=== PATIENT | female | born 1970 | race Asian ===

== ENCOUNTER → 2018-12-23 10:25 | Outpatient (CLI) | payer BC, SELFPAY ==
--- NOTE | 2018-12-23 | DI.MG.S_ITS ---
BILATERAL DIGITAL SCREENING MAMMOGRAM 3D/2D WITH CAD: 12/23/2018 CLINICAL: Routine screening. Comparison is made to exams dated: 05/06/2017 mammogram, 05/04/2016 mammogram, 04/07/2015 mammogram, and 04/01/2015 mammogram - [facility]. The tissue of both breasts is extremely dense, which lowers the sensitivity of mammography. Current study was also evaluated with a Computer Aided Detection (CAD) system. There are benign calcifications in both breasts. No significant masses, calcifications, or other findings are seen in either breast. There has been no significant interval change. IMPRESSION: There is no mammographic evidence of malignancy. A 1 year screening mammogram is recommended. This exam was interpreted at Station ID: [id number]. NOTE: For mammograms, a report in lay terms will be sent to the patient. Approximately 15% of breast malignancies will not be visualized mammographically. In the management of a palpable breast mass, a negative mammogram must not discourage biopsy of a clinically suspicious lesion. Electronically Signed By: Chapito south/denise:12/23/2018 11:31:39 letter sent: Normal Exam ACR BI-RADS Category 2: Benign Finding(s) 3342F
== END ==
PROVIDERS: Family Provider Family Medicine; PCP Family Medicine; Visit Provider Family Medicine
DX: Z12.31 Encounter for screening mammogram for malignant neoplasm of breast (principal)
CPT/HCPCS: 77063; 77067

== ENCOUNTER → 2019-05-11 10:44 | Outpatient (CLI) | payer BC, SELFPAY ==
--- NOTE | 2019-05-11 | DI.RAD.S_ITS ---
PROCEDURE: XR LUMBAR SPINE 2-3V INDICATIONS: Low back pain TECHNIQUE: 2 views of the lumbar spine were acquired. COMPARISON: [facility], , XR L-SPINE 5V, 08/24/2004, 9:02. FINDINGS: Bones: 5 orb-[id number] vertebrae are present. There is abnormal bony alignment with grade 2 anterolisthesis of L5 on S1 associated with bilateral L5 pars interarticularis defects. No vertebral body compression fractures. No suspicious bony lesions. Soft tissues: Overlying bowel gas pattern is normal. No suspicious soft tissue calcifications. IMPRESSION: Bilateral pars interarticularis defects are present at L5 allowing development of grade 2 anterolisthesis of L5 on S1, not previously present on the comparison study from August 2004. Spinal and foraminal stenosis at this level would be expected, degenerative disc height reduction is moderate in severity at this level in addition to the expected degree of facet osteoarthritis secondary to the pars defects. Dictated by: Douglas Rader M.D. on 05/11/2019 at 11:27 Approved by: Douglas Rader M.D. on 05/11/2019 at 11:29
== END ==
PROVIDERS: Family Provider Family Medicine; PCP Family Medicine; Visit Provider Family Medicine
DX: M54.5 Low back pain (principal); M43.17 Spondylolisthesis, lumbosacral region
CPT/HCPCS: 72100

== ENCOUNTER → 2019-05-26 17:40 | Outpatient (CLI) | payer BC, SELFPAY ==
--- NOTE | 2019-05-26 | DI.MRI.S_ITS ---
PROCEDURE: MR LUMBAR SPINE WO CON INDICATIONS: Spine pain TECHNIQUE: Noncontrast sagittal T1 spin echo and T2 fast echo, sagittal STIR, axial T1 and T2 fast spin echo through the lumbar spine. In cases with scoliosis, additional coronal T2 fast spin echo may be performed. COMPARISON: [facility], CR, XR LUMBAR SPINE 2-3V, 05/11/2019, 10:59. FINDINGS: Image quality: Excellent. Alignment and Curvature: 5 lumbar type vertebral bodies are present by plain film. There is mild grade 1 retrolisthesis of L2 on L3 and L3 on L4. Mild grade 1 anterolisthesis of L5 on S1. Bone Marrow: Marrow is of normal overall signal. No acute vertebral body compression fractures. Bilateral L5-S1 pars interarticularis defects. Mild reactive signal within the endplates adjacent to the L2-L3 and L5-S1 intervertebral discs. Spinal Cord: Conus medullaris terminates at the mid L2 level. Visualized cord demonstrates normal signal and size. Paraspinous Soft Tissues: No paravertebral masses. L1-L2: Mild facet hypertrophy bilaterally. No significant canal, nor foraminal stenosis. L2-L3: Mild disc height loss and desiccation. Mild diffuse disc bulge with superimposed small central protrusion. Mild facet hypertrophy bilaterally. Mild canal stenosis. No foraminal stenosis. L3-L4: Mild disc height loss and desiccation. Mild diffuse disc bulge. Mild facet hypertrophy bilaterally. Mild canal stenosis. Mild bilateral foraminal stenosis. L4-L5: Mild disc height loss and desiccation. Mild diffuse disc bulge. Mild bilateral facet hypertrophy. Mild canal stenosis. Mild bilateral foraminal stenosis. L5-S1: Moderate disc height loss and desiccation. Moderate diffuse disc bulge. Mild bilateral facet hypertrophy. No canal stenosis. Severe bilateral foraminal stenosis with bilateral L5 nerve root compression. IMPRESSION: 1. Grade I isthmic spondylolisthesis at L5-S1, associated with disc and facet disease. 2. Severe bilateral L5-S1 foraminal stenosis associated with bilateral L5 nerve root compression. Recommend correlation with clinical symptoms to ascertain relevance of this finding. Dictated by: Reddy Zimmerman M.D. on 05/27/2019 at 9:05 Approved by: Reddy Zimmerman M.D. on 05/27/2019 at 9:09
== END ==
PROVIDERS: PCP Family Medicine; Visit Provider Family Medicine
DX: M43.17 Spondylolisthesis, lumbosacral region (principal); M51.17 Intervertebral disc disorders with radiculopathy, lumbosacral region; M51.16 Intervertebral disc disorders with radiculopathy, lumbar region; M48.07 Spinal stenosis, lumbosacral region; M48.061 Spinal stenosis, lumbar region without neurogenic claudication
CPT/HCPCS: 72148

== ENCOUNTER → 2019-06-11 13:57 | Outpatient (CLI) | payer BC, SELFPAY | PROVIDERS: PCP Family Medicine; Visit Provider Family Medicine | DX: M54.16 Radiculopathy, lumbar region (principal) | CPT/HCPCS: 95885; 95886; 95909 ==

== ENCOUNTER 2019-07-23 09:00 | Outpatient (RCR) | payer BC, SELFPAY ==
--- NOTE | 2019-06-05 18:19 | PT.OIE ---
Current Diagnoses Sacroiliitis, not elsewhere classified (06/05/19) Spinal instabilities, sacral and sacrococcygeal region (06/05/19) Radiculopathy, lumbar region (06/05/19) Past Medical History (Last Updated 06/05/19 @ 18:15 by Zoya Mckinley, PT) Back pain (Acute) Depression (Acute) Provider Visit Care Team Role Provider Type Laura Moran MD Attending Provider Physician Primary Care Provider Specialty: Family Practice Address: [address] [place] [address], [facility] Email: Physical Therapy Initial Evaluation PT-OP-A Visit Information Start: 06/05/19 11:21 Freq: Status: Active Protocol: Document 06/05/19 11:55 LRN (Rec: 06/05/19 18:09 LRN [id number]) Out-Patient Physical Therapy Visit Information Visit Information Visit Type Initial Evaluation Visit Start Time 11:41 Visit Stop Time 12:41 Total Visit Minutes 60 Visit Number 1 Evaluation Information Evaluation Date 06/05/19 Precautions Precautions Depression Assessed with L SIJ instability PT-OP-B Current Condition Start: 06/05/19 11:21 Freq: Status: Active Protocol: Document 06/05/19 11:55 LRN (Rec: 06/05/19 18:09 LRN [id number]) Current Condition History of Current Condition Onset Date 2002 Current Complaints Intermittent severe L low back pain at SIJ level History of Current Condition Pt reports in 2002 she was helping her spouse move a 100# boat battery when he suddenly dropped it, leaving her holding it with her R hand and standing primarily on her R LE. She felt immediate pain in the L low back and has had back pain since. At one time she was taking a lot of IBP and Tylenol for her pain and found some relief with IBP. She has since been placed on a therapeutic dose of IBP but the pt is worried about taking too many medications. She was told at one time while on a trip to [facility], by a [facility] doctor, that she needed surgery but was unable to afford it. She thinks the reason was because she had no disc space at L5-S1. She currently has intermittent L low back pain that she has learned to self manipulate, but is never sure when it will click out of place. Prior Treatments and Tests MRI & X-rays taken in [facility] MRI & X-rays @ [facility] 05/26/19 Future Testing and Treatments Planned Possible cortisone injection Treatment Goals Patient/Caregiver Goals Pt goal is to become painfree and learn how to manage her condition to prevent onset. Prior Functional Status Baseline Function- ADL's Independent Baseline Function- Mobility Independent Current Functional Impairments (Reported) Functional Limitations- ADL's Able to sit or lie on a soft surface for a very short period of time. Slow and cautious with movement. Personal Factors Other Personal Factors That May Effect Chronicity of condition Therapy/Recovery Depression PT-OP-C Subjective Start: 06/05/19 11:21 Freq: Status: Active Protocol: Document 06/05/19 11:55 LRN (Rec: 06/05/19 18:09 LRN [id number]) OP-PT Pain Assessment Pain Assessment Grid Paper Pain Assessment Grid Completed Yes Location Left Lower Back Pain Location Details L low back at Sacral level Intensity 4 Scale Used Numeric (1 - 10) Description- Other Clicking with sudden relief Frequency Intermittent Pain Aggravating Factors Changing Position Activity Sitting Bending Lifting Other Pain Alleviating Factors Self manipulation, IBP Patient Stated Pain Goal Painfree Home Pain Medication Use Pain Medications Used Natural remedies Pain Behaviors Pain Behaviors Restlessness PT-OP-F Manual Assessment Start: 06/05/19 11:21 Freq: Status: Active Protocol: Document 06/05/19 11:55 LRN (Rec: 06/05/19 18:09 LRN [id number]) Manual Assessments Soft Tissue Assessment Soft Tissue Mobility Assessment Muscle guarding in lumbar paraspinal region, upper gluteals. Joint Mobility Assessment Joint Mobility Assessment Deferred due to patient apprehension of creating pain. PT-OP-G Mobility & Gait Start: 06/05/19 11:21 Freq: Status: Active Protocol: Document 06/05/19 11:55 LRN (Rec: 06/05/19 18:09 LRN [id number]) OP Mobility Evaluation Bed Mobility Supine to and from Sit Pt transfers supine to sit by doing a sit up. PT-OP-H Neuro Start: 06/05/19 11:21 Freq: Status: Active Protocol: Document 06/05/19 11:55 LRN (Rec: 06/05/19 18:09 LRN [id number]) Sensation Evaluation Gross Sensation Gross Sensation WNL Deep Tendon Reflex & Clonus Assessment Deep Tendon Reflex Bilateral Achilles Deep Tendon Reflex 1+ Diminished Bilateral Patellar Deep Tendon Reflex 4+ Brisk PT-OP-J Posture/Palpation/Skin Start: 06/05/19 11:21 Freq: Status: Active Protocol: Document 06/05/19 11:55 LRN (Rec: 06/05/19 18:09 LRN [id number]) Posture Evaluation Position Standing Head/C-Spine Posture Neutral Position C-Spine Flattened T-Spine Posture Flattened Flexible Scoliosis on (L) L-Spine Posture Increased Lordosis Flexible Scoliosis on (L) Shoulder Posture (L) Elevated Scapula Posture (L) Elevated Pelvis Posture Anteriorly Tilted Weight Distribution Balanced Knee Posture (L) Genu Recurvatum (R) Genu Recurvatum Ankle/Foot Posture (R) Calcaneal Eversion Palpation Assessment Location Lumbar Palpation Location Lumbar region Palpation Findings Muscle Guarding Palpation Details Lumbar spine is in L rotation. Sacrum Palpation Location Sacrum in prone Palpation Findings Tenderness Palpation Details Sacrum is rotated left and flexed on the right, extended on the left. PT-OP-K Range of Motion Start: 06/05/19 11:21 Freq: Status: Active Protocol: Document 06/05/19 11:55 LRN (Rec: 06/05/19 18:09 LRN [id number]) Lumbar Spine Range of Motion Lumbar Spine Active Degrees Testing Position Standing Flexion 95 Extension 5 Rotation Left 20 Rotation Right 30 Lateral Flexion Left 7 Lateral Flexion Right 10 ROM Limitations Soft Tissue Tightness Bony Restriction Comments Fear limiting with extension. Pt lacks lumbar vertebral movement for flexion, spine is straight with forward bending , straight with sidebending, straight with L rotation. Hip Goniometric Range of Motion Hip Right Passive Testing Position Supine Straight Leg Raise 110 Internal Rotation 45 External Rotation 55 Left Passive Testing Position Supine Straight Leg Raise 75 Internal Rotation 45 External Rotation 50 PT-OP-L Special Tests Start: 06/05/19 11:21 Freq: Status: Active Protocol: Document 06/05/19 11:55 LRN (Rec: 06/05/19 18:09 LRN [id number]) Special Tests Lumbar Spine Special Tests Straight Leg Raise Test Results positive on the left for soft tissue tightness Hip Special Tests Stinchfield Resisted Hip Flexion Test Results negative bilaterally Comments Testing of R side elicited pain in L LB. Scour Test Test Results negative bilaterally Log Roll Test Test Results negative bilaterally BREE Test Results negative bilaterally Comments L side: hip joint pain anteriorly R side: no discomfort. PT-OP-M Strength Start: 06/05/19 11:21 Freq: Status: Active Protocol: Document 06/05/19 11:55 LRN (Rec: 06/05/19 18:09 LRN [id number]) Trunk Strength Trunk Manual Muscle Testing Testing Position Supine Comments Fair to Poor trunk stabilization with resistance given to LE's Hip Strength Hip Manual Muscle Testing Right Internal Rotation 4+ Good+ Comments Strength is generally 5/5 except those mentioned above. Left Adduction 4 Good Internal Rotation 4 Good Comments Strength is generally 5/5 except those mentioned above. Knee Strength Knee Manual Muscle Testing Right Flexion (S2) 4+ Good+ Extension (L3) 5 Normal Comments Hamstring (S2) Left Reason Not Measured WFL Ankle/Foot Strength Ankle and Foot Manual Muscle Testing Right Reason Not Measured WFL Left Reason Not Measured WFL Toe Strength Toe Manual Muscle Testing Right Great Toe Extension 5 Normal Left Great Toe Extension 5 Normal PT-OP-Q Treatments Start: 06/05/19 11:21 Freq: Status: Active Protocol: Document 06/05/19 11:55 LRN (Rec: 06/05/19 18:09 LRN [id number]) Therapeutic Exercises Supine Exercises TA tightening Supine Exercise Name TA tightening with fingers at ASIS for awareness training Side bilateral Reps/Minutes 3 Sidelying Exercises TA tightening Sidelying Exercise Name TA tightening for awareness training Side bilateral Reps/Minutes 4 Other Exercises 4-Point: TA tightening Other Exercise Name TA tightening and spinal stabilization Reps/Minutes 4 Self-Care/Home Management Treatment Education Patient Education Body Mechanics Activities Self-Care/Home Management Activities Pt educated in proper movement for scooting forward on plinth, postioning in sit prior to standing, standing; TA holding during movement. PT-OP-T Assessment and Plan Start: 06/05/19 11:21 Freq: Status: Active Protocol: Document 06/05/19 11:55 LRN (Rec: 06/05/19 18:09 LRN [id number]) Physical Therapy Assessment Rehab Potential Rehabilitation Potential Good Evaluation Complexity Number of Personal Factors/Comorbidities 1-2 Number of Body Systems Impaired 4 or More Clinical Presentation at Evaluation Evolving Impairments Impairments Activity Tolerance Pain Posture ROM Soft Tissue Mobility Strength Other Impairments Positional Tolerance Other Concerns Age Related Concerns Effect on social and home life Barriers to Rehabilitation Chronicity of condition Depression Goals Four Impairment Low back pain rated 4/10 Short Term Goal (STG) Pt will experience pain no greater than 2/10 with walking or standing for a 2 or more week interval. Sheet Tailer Goal (LTG) With activity pt will have L low back pain no greater than 1/10. LTG Duration 08/28/19 Three Impairment Pt unable to maintain pelvic stability at the L SIJ with transfers. Short Term Goal (STG) Pt will be able to stabilize the L SIJ with use of assistive device as necessary. STG Duration 06/26/19 Group Home Goal (LTG) Pt will be able to move from supine <-> sit and sit <-> stand 75% of the time without clicking and a feeling of instability in the L SIJ. LTG Duration 08/28/19 Two Impairment Pt unable to tolerate sitting on soft surfaces for any length of time. Short Term Goal (STG) Pt will be educated in proper sit posture and compensatory measures to improve tolerance to sitting. STG Duration 06/12/19 Sheet Tailer Goal (LTG) Pt will be able to tolerate sitting for 1 hour on various surfaces with compensatory measures used as needed. LTG Duration 08/28/19 One Impairment Pt lacks a self care HEP Group Home Goal (LTG) Pt will be independent in a self care HEP to prevent onset of L LBP with activity and allow pt to manage her condition at a tolerable level . LTG Duration 08/28/19 Assessment Summary Assessment Pt presents with an unstable L sacroiliac joint that appears to intermittently going from a posteriorly rotated L innominate position to neutral . Her sacrum is in a torsion with the upper L ALA deep and flexed, and the L KATE is in L rotation and flexed. Her lumbar spine has positional dysfunctions per X-ray & MRI reports indicating grade 1-2 anterolisthesis of L5 on S1 with adrianne par defects ( spondylolithesis) and retrolisthesis of L2 on L3 & L3 on L4. MRI shows severe L5 -S1 foraminal stenosis and L5 nerve root compression with disc bulging from L2-S1. She is weak with hip IR and L knee flexion (S2), and decreased in hip ER mobility. She is unable to maintain a stable core with resistance applied to her LE's and lacks awareness of proper posturing and how to control her core to maintain good posture. She moves with poor awareness of stabilization of her pelvis and core. The pt will benefit from skilled physical therapy to improve stability of the pelvis and core, improve symmetry and proper movement form of hips and lumbar spine and pt education in proper posturing, body mechanics and self care HEP. The pt has multiple dysfunctions to address and due to difficulty in scheduling the pt's rehabilitation time is expected to be prolonged. Physical Therapy Plan Frequency and Duration Frequency of Treatment 2x/Week Duration of Treatment 8-12 weeks Plan of Care Start Date 06/05/19 Plan of Care End Date 08/28/19 Therapeutic Interventions Therapeutic Interventions Aquatic Therapy Home Exercise Program Joint Mobilizations Manual Therapy Neuromuscular Re-education Patient/Caregiver Education Self-Care/Home Management Soft Tissue Mobilization Taping Therapeutic Exercises Modalities Cold Pack/Ice Massage Hot Packs Iontophoresis Other Therapeutic Interventions Sacroiliac stabilizing belt. Next Visit Focus/Plan Next Note Type Treatment Note Next Visit Plan Review home ex's shown (TA strengthening in 3 positions). Check March Test and check for upslip of R innominate, then teach pt self correction for rotated innominate dysfunction. Trial of stabilizing belt in clinic and if appropriate recommend SI belt for home use. Initiate manual therapy to correct sacral and lumbar positional dysfunction and therapeutic exercise for core/pelvic stabilization. Try manual lumbar traction for pain relief. When pt has awareness of ability to stabilize the core, initiate LE ROM and strengthening exercise (for weak hip IR and L knee flexion (S2), and decreased in hip ER mobility).
--- NOTE | 2019-06-09 15:41 | PT.OTN ---
Current Diagnoses Sacroiliitis, not elsewhere classified (06/09/19) Spinal instabilities, sacral and sacrococcygeal region (06/09/19) Radiculopathy, lumbar region (06/09/19) Physical Therapy Treatment Note PT-OP-A Visit Information Start: 06/05/19 11:21 Freq: Status: Active Protocol: Document 06/09/19 14:14 LRN (Rec: 06/09/19 15:05 LRN [id number]) Out-Patient Physical Therapy Visit Information Visit Information Visit Type Initial Evaluation Visit Start Time 14:14 Visit Stop Time 15:02 Total Visit Minutes 48 Visit Number 2 Evaluation Information Evaluation Date 06/05/19 Precautions Precautions Depression Assessed with L SIJ instability PT-OP-B Current Condition Start: 06/05/19 11:21 Freq: Status: Active Protocol: Document 06/05/19 11:55 LRN (Rec: 06/05/19 18:09 LRN [id number]) Current Condition History of Current Condition Onset Date 2002 Current Complaints Intermittent severe L low back pain at SIJ level History of Current Condition Pt reports in 2002 she was helping her spouse move a 100# boat battery when he suddenly dropped it, leaving her holding it with her R hand and standing primarily on her R LE. She felt immediate pain in the L low back and has had back pain since. At one time she was taking a lot of IBP and Tylenol for her pain and found some relief with IBP. She has since been placed on a therapeutic dose of IBP but the pt is worried about taking too many medications. She was told at one time while on a trip to [facility], by a [facility] doctor, that she needed surgery but was unable to afford it. She thinks the reason was because she had no disc space at L5-S1. She currently has intermittent L low back pain that she has learned to self manipulate, but is never sure when it will click out of place. Prior Treatments and Tests MRI & X-rays taken in [facility] MRI & X-rays @ [facility] 05/26/19 Future Testing and Treatments Planned Possible cortisone injection Treatment Goals Patient/Caregiver Goals Pt goal is to become painfree and learn how to manage her condition to prevent onset. Prior Functional Status Baseline Function- ADL's Independent Baseline Function- Mobility Independent Current Functional Impairments (Reported) Functional Limitations- ADL's Able to sit or lie on a soft surface for a very short period of time. Slow and cautious with movement. Personal Factors Other Personal Factors That May Effect Chronicity of condition Therapy/Recovery Depression PT-OP-C Subjective Start: 06/05/19 11:21 Freq: Status: Active Protocol: Document 06/09/19 14:14 LRN (Rec: 06/09/19 15:05 LRN [id number]) OP-PT Subjective Patient Comments Patient Comments Less pain. Has worn a belt around hips. PT-OP-F Manual Assessment Start: 06/05/19 11:21 Freq: Status: Active Protocol: Document 06/05/19 11:55 LRN (Rec: 06/05/19 18:09 LRN [id number]) Manual Assessments Soft Tissue Assessment Soft Tissue Mobility Assessment Muscle guarding in lumbar paraspinal region, upper gluteals. Joint Mobility Assessment Joint Mobility Assessment Deferred due to patient apprehension of creating pain. PT-OP-G Mobility & Gait Start: 06/05/19 11:21 Freq: Status: Active Protocol: Document 06/05/19 11:55 LRN (Rec: 06/05/19 18:09 LRN [id number]) OP Mobility Evaluation Bed Mobility Supine to and from Sit Pt transfers supine to sit by doing a sit up. PT-OP-H Neuro Start: 06/05/19 11:21 Freq: Status: Active Protocol: Document 06/05/19 11:55 LRN (Rec: 06/05/19 18:09 LRN [id number]) Sensation Evaluation Gross Sensation Gross Sensation WNL Deep Tendon Reflex & Clonus Assessment Deep Tendon Reflex Bilateral Achilles Deep Tendon Reflex 1+ Diminished Bilateral Patellar Deep Tendon Reflex 4+ Brisk PT-OP-J Posture/Palpation/Skin Start: 06/05/19 11:21 Freq: Status: Active Protocol: Document 06/05/19 11:55 LRN (Rec: 06/05/19 18:09 LRN [id number]) Posture Evaluation Position Standing Head/C-Spine Posture Neutral Position C-Spine Flattened T-Spine Posture Flattened Flexible Scoliosis on (L) L-Spine Posture Increased Lordosis Flexible Scoliosis on (L) Shoulder Posture (L) Elevated Scapula Posture (L) Elevated Pelvis Posture Anteriorly Tilted Weight Distribution Balanced Knee Posture (L) Genu Recurvatum (R) Genu Recurvatum Ankle/Foot Posture (R) Calcaneal Eversion Palpation Assessment Location Lumbar Palpation Location Lumbar region Palpation Findings Muscle Guarding Palpation Details Lumbar spine is in L rotation. Sacrum Palpation Location Sacrum in prone Palpation Findings Tenderness Palpation Details Sacrum is rotated left and flexed on the right, extended on the left. PT-OP-K Range of Motion Start: 06/05/19 11:21 Freq: Status: Active Protocol: Document 06/05/19 11:55 LRN (Rec: 06/05/19 18:09 LRN [id number]) Lumbar Spine Range of Motion Lumbar Spine Active Degrees Testing Position Standing Flexion 95 Extension 5 Rotation Left 20 Rotation Right 30 Lateral Flexion Left 7 Lateral Flexion Right 10 ROM Limitations Soft Tissue Tightness Bony Restriction Comments Fear limiting with extension. Pt lacks lumbar vertebral movement for flexion, spine is straight with forward bending , straight with sidebending, straight with L rotation. Hip Goniometric Range of Motion Hip Right Passive Testing Position Supine Straight Leg Raise 110 Internal Rotation 45 External Rotation 55 Left Passive Testing Position Supine Straight Leg Raise 75 Internal Rotation 45 External Rotation 50 PT-OP-L Special Tests Start: 06/05/19 11:21 Freq: Status: Active Protocol: Document 06/09/19 14:14 LRN (Rec: 06/09/19 15:05 LRN [id number]) Special Tests Other Special Tests Special Tests March Test + on the Right PT-OP-M Strength Start: 06/05/19 11:21 Freq: Status: Active Protocol: Document 06/05/19 11:55 LRN (Rec: 06/05/19 18:09 LRN [id number]) Trunk Strength Trunk Manual Muscle Testing Testing Position Supine Comments Fair to Poor trunk stabilization with resistance given to LE's Hip Strength Hip Manual Muscle Testing Right Internal Rotation 4+ Good+ Comments Strength is generally 5/5 except those mentioned above. Left Adduction 4 Good Internal Rotation 4 Good Comments Strength is generally 5/5 except those mentioned above. Knee Strength Knee Manual Muscle Testing Right Flexion (S2) 4+ Good+ Extension (L3) 5 Normal Comments Hamstring (S2) Left Reason Not Measured WFL Ankle/Foot Strength Ankle and Foot Manual Muscle Testing Right Reason Not Measured WFL Left Reason Not Measured WFL Toe Strength Toe Manual Muscle Testing Right Great Toe Extension 5 Normal Left Great Toe Extension 5 Normal PT-OP-Q Treatments Start: 06/05/19 11:21 Freq: Status: Active Protocol: Document 06/09/19 14:14 LRN (Rec: 06/09/19 15:05 LRN [id number]) Therapeutic Exercises Supine Exercises TA tightening Supine Exercise Name TA tightening with fingers at ASIS for awareness training Reps/Minutes 10 x 10 sec hold Sidelying Exercises TA tightening Sidelying Exercise Name TA tightening for awareness training Side bilateral Reps/Minutes 10 x 10 sec hold Sitting Exercises LE Roll in/out Sitting Exercise Name LE Roll in/outs with self manual resistance. Side bilateral Resistance Manual Equipment Used manual Reps/Minutes 3' Comments Pt has some weakness with L roll out starting at ~30 deg's . TA Sitting Exercise Name TA tightening Reps/Minutes 10 x 10 sec holds Other Exercises 4-Point: TA tightening Other Exercise Name TA tightening and spinal stabilization Reps/Minutes 10 x 10 sec hold Manual Therapy Treatment Taping L SIJ Body Location L SIJ Treatment Focus Stabilize L SIJ Type of Tape Kinesio Tape Skin Inspection Good Comments Star Tape. Pt I/S in removal of tape within 5 days or 1 day before next appt, or if signs of allergic reaction discussed Self-Care/Home Management Treatment Education Patient Education Body Mechanics Posture Other Education Educated pt in anatomy and I/S pt in neutral spine positioning. Activities Self-Care/Home Management Activities Body mechanics training for moving stand<>sit<>supine<> prone. Discussed standing posture. I/S pt in positioning with equal weightbearing and made changes to home ex program for equal weightbearing and stretching legs together with standing stretches. Discussed use of SI belt ( compressor belt) with handout issued for pt to look online. Discussed cost of belt and options for obtaining a SI Compressor belt. PT-OP-T Assessment and Plan Start: 06/05/19 11:21 Freq: Status: Active Protocol: Document 06/09/19 14:14 LRN (Rec: 06/09/19 15:05 LRN [id number]) Physical Therapy Assessment Assessment Summary Assessment Pt demonstrates hypermobility at bilateral SIJ's with R being worse than the left; therefore + January Test R is > + January Test L. Her clicking complaints may be due to SIJ instability or L5 anteriorly shifted on S1 and retrolisthesis of L2 on L3 & L3 on L4. Pt responded very well to use of compression of the L SIJ (using blue strap as trial) with a decrease in L LBP; therefore recommend the pt obtain a SIJ belt for use to assist with stabilization bilaterally. Pt may have initially strained the R side, but with muscle guarding has developed L sided instability and pain. Palpating of R SIJ during marching she appears to have palpable increased SIJ movement superiorly and inferiorly. Pt is able to perform a good strong isometric holding TA in all positions. She prefers to obtain her own SIJ belt instead of trying to go through insurance. The pt appears to have a good understanding of the safe and proper removal of the K-tape if assessed it is needed. Pt would tolerate progressing stabilization with movement and resistance.. Physical Therapy Plan Frequency and Duration Frequency of Treatment 2x/Week Duration of Treatment 8-12 weeks Plan of Care Start Date 06/05/19 Plan of Care End Date 08/28/19 Next Visit Focus/Plan Next Note Type Treatment Note Next Visit Plan Teach pt proper donning of SIJ belt if she has obtained. Check response to K-tape to L SIJ. Check for upslip of R innominate, then teach pt self correction for rotated innominate dysfunction. Initiate manual therapy to correct sacral and lumbar positional dysfunction and therapeutic exercise for core/ pelvic stabilization. Try manual lumbar traction for pain relief. When pt has awareness of ability to stabilize the core, initiate LE ROM and strengthening exercise (for weak hip IR and L knee flexion (S2), and decreased in hip ER mobility).
--- NOTE | 2019-06-12 17:00 | PT.OTN ---
Current Diagnoses Sacroiliitis, not elsewhere classified (06/12/19) Spinal instabilities, sacral and sacrococcygeal region (06/12/19) Radiculopathy, lumbar region (06/12/19) Physical Therapy Treatment Note PT-OP-A Visit Information Start: 06/05/19 11:21 Freq: Status: Active Protocol: Document 06/12/19 09:05 LRN (Rec: 06/12/19 09:50 LRN [id number]) Out-Patient Physical Therapy Visit Information Visit Information Visit Type Treatment Note Visit Start Time 09:05 Visit Stop Time 09:45 Total Visit Minutes 40 Visit Number 3 Evaluation Information Evaluation Date 06/05/19 Precautions Precautions Depression Assessed with L SIJ instability PT-OP-B Current Condition Start: 06/05/19 11:21 Freq: Status: Active Protocol: Document 06/05/19 11:55 LRN (Rec: 06/05/19 18:09 LRN [id number]) Current Condition History of Current Condition Onset Date 2002 Current Complaints Intermittent severe L low back pain at SIJ level History of Current Condition Pt reports in 2002 she was helping her spouse move a 100# boat battery when he suddenly dropped it, leaving her holding it with her R hand and standing primarily on her R LE. She felt immediate pain in the L low back and has had back pain since. At one time she was taking a lot of IBP and Tylenol for her pain and found some relief with IBP. She has since been placed on a therapeutic dose of IBP but the pt is worried about taking too many medications. She was told at one time while on a trip to [facility], by a [facility] doctor, that she needed surgery but was unable to afford it. She thinks the reason was because she had no disc space at L5-S1. She currently has intermittent L low back pain that she has learned to self manipulate, but is never sure when it will click out of place. Prior Treatments and Tests MRI & X-rays taken in [facility] MRI & X-rays @ [facility] 05/26/19 Future Testing and Treatments Planned Possible cortisone injection Treatment Goals Patient/Caregiver Goals Pt goal is to become painfree and learn how to manage her condition to prevent onset. Prior Functional Status Baseline Function- ADL's Independent Baseline Function- Mobility Independent Current Functional Impairments (Reported) Functional Limitations- ADL's Able to sit or lie on a soft surface for a very short period of time. Slow and cautious with movement. Personal Factors Other Personal Factors That May Effect Chronicity of condition Therapy/Recovery Depression PT-OP-C Subjective Start: 06/05/19 11:21 Freq: Status: Active Protocol: Document 06/09/19 14:14 LRN (Rec: 06/09/19 15:05 LRN [id number]) OP-PT Subjective Patient Comments Patient Comments Less pain. Has worn a belt around hips. PT-OP-F Manual Assessment Start: 06/05/19 11:21 Freq: Status: Active Protocol: Document 06/05/19 11:55 LRN (Rec: 06/05/19 18:09 LRN [id number]) Manual Assessments Soft Tissue Assessment Soft Tissue Mobility Assessment Muscle guarding in lumbar paraspinal region, upper gluteals. Joint Mobility Assessment Joint Mobility Assessment Deferred due to patient apprehension of creating pain. PT-OP-G Mobility & Gait Start: 06/05/19 11:21 Freq: Status: Active Protocol: Document 06/05/19 11:55 LRN (Rec: 06/05/19 18:09 LRN [id number]) OP Mobility Evaluation Bed Mobility Supine to and from Sit Pt transfers supine to sit by doing a sit up. PT-OP-H Neuro Start: 06/05/19 11:21 Freq: Status: Active Protocol: Document 06/05/19 11:55 LRN (Rec: 06/05/19 18:09 LRN [id number]) Sensation Evaluation Gross Sensation Gross Sensation WNL Deep Tendon Reflex & Clonus Assessment Deep Tendon Reflex Bilateral Achilles Deep Tendon Reflex 1+ Diminished Bilateral Patellar Deep Tendon Reflex 4+ Brisk PT-OP-J Posture/Palpation/Skin Start: 06/05/19 11:21 Freq: Status: Active Protocol: Document 06/05/19 11:55 LRN (Rec: 06/05/19 18:09 LRN [id number]) Posture Evaluation Position Standing Head/C-Spine Posture Neutral Position C-Spine Flattened T-Spine Posture Flattened Flexible Scoliosis on (L) L-Spine Posture Increased Lordosis Flexible Scoliosis on (L) Shoulder Posture (L) Elevated Scapula Posture (L) Elevated Pelvis Posture Anteriorly Tilted Weight Distribution Balanced Knee Posture (L) Genu Recurvatum (R) Genu Recurvatum Ankle/Foot Posture (R) Calcaneal Eversion Palpation Assessment Location Lumbar Palpation Location Lumbar region Palpation Findings Muscle Guarding Palpation Details Lumbar spine is in L rotation. Sacrum Palpation Location Sacrum in prone Palpation Findings Tenderness Palpation Details Sacrum is rotated left and flexed on the right, extended on the left. PT-OP-K Range of Motion Start: 06/05/19 11:21 Freq: Status: Active Protocol: Document 06/05/19 11:55 LRN (Rec: 06/05/19 18:09 LRN [id number]) Lumbar Spine Range of Motion Lumbar Spine Active Degrees Testing Position Standing Flexion 95 Extension 5 Rotation Left 20 Rotation Right 30 Lateral Flexion Left 7 Lateral Flexion Right 10 ROM Limitations Soft Tissue Tightness Bony Restriction Comments Fear limiting with extension. Pt lacks lumbar vertebral movement for flexion, spine is straight with forward bending , straight with sidebending, straight with L rotation. Hip Goniometric Range of Motion Hip Right Passive Testing Position Supine Straight Leg Raise 110 Internal Rotation 45 External Rotation 55 Left Passive Testing Position Supine Straight Leg Raise 75 Internal Rotation 45 External Rotation 50 PT-OP-L Special Tests Start: 06/05/19 11:21 Freq: Status: Active Protocol: Document 06/09/19 14:14 LRN (Rec: 06/09/19 15:05 LRN [id number]) Special Tests Other Special Tests Special Tests March Test + on the Right PT-OP-M Strength Start: 06/05/19 11:21 Freq: Status: Active Protocol: Document 06/05/19 11:55 LRN (Rec: 06/05/19 18:09 LRN [id number]) Trunk Strength Trunk Manual Muscle Testing Testing Position Supine Comments Fair to Poor trunk stabilization with resistance given to LE's Hip Strength Hip Manual Muscle Testing Right Internal Rotation 4+ Good+ Comments Strength is generally 5/5 except those mentioned above. Left Adduction 4 Good Internal Rotation 4 Good Comments Strength is generally 5/5 except those mentioned above. Knee Strength Knee Manual Muscle Testing Right Flexion (S2) 4+ Good+ Extension (L3) 5 Normal Comments Hamstring (S2) Left Reason Not Measured WFL Ankle/Foot Strength Ankle and Foot Manual Muscle Testing Right Reason Not Measured WFL Left Reason Not Measured WFL Toe Strength Toe Manual Muscle Testing Right Great Toe Extension 5 Normal Left Great Toe Extension 5 Normal PT-OP-Q Treatments Start: 06/05/19 11:21 Freq: Status: Active Protocol: Document 06/12/19 09:05 LRN (Rec: 06/12/19 09:50 LRN [id number]) Therapeutic Exercises Supine Exercises LE roll in/out Supine Exercise Name Roll in/out with and without T -Band Side bilateral Reps/Minutes 8' Buzz heel slides Supine Exercise Name TA strengthening: Buzz heel slides Side bilateral Reps/Minutes 10' Comments Assist initially for keeping legs evenly moving. Awareness training of neutral Supine Exercise Name positioning in neutral with legs and back Side bilateral Reps/Minutes 5' TA tightening Supine Exercise Name TA tightening with fingers at ASIS for awareness training Reps/Minutes 10 x 10 sec hold Manual Therapy Treatment Soft Tissue Mobilization Rot of trunk Body Location Trunk fascia rotated left: anterior, posterior, lateral sides Mobilization Type Myofascial Release Intensity/Depth Superficial Body Position Supine Comments 15' PT-OP-T Assessment and Plan Start: 06/05/19 11:21 Freq: Status: Active Protocol: Document 06/12/19 09:05 LRN (Rec: 06/12/19 09:50 LRN [id number]) Physical Therapy Assessment Goals Four Impairment Low back pain rated 4/10 Short Term Goal (STG) Pt will experience pain no greater than 2/10 with walking or standing for a 2 or more week interval. Engineering Lecturer Goal (LTG) With activity pt will have L low back pain no greater than 1/10. LTG Duration 08/28/19 Three Impairment Pt unable to maintain pelvic stability at the L SIJ with transfers. Short Term Goal (STG) Pt will be able to stabilize the L SIJ with use of assistive device as necessary. STG Duration 06/26/19 Engineering Lecturer Goal (LTG) Pt will be able to move from supine <-> sit and sit <-> stand 75% of the time without clicking and a feeling of instability in the L SIJ. LTG Duration 08/28/19 Two Impairment Pt unable to tolerate sitting on soft surfaces for any length of time. Short Term Goal (STG) Pt will be educated in proper sit posture and compensatory measures to improve tolerance to sitting. STG Duration 06/12/19 [facility] Goal (LTG) Pt will be able to tolerate sitting for 1 hour on various surfaces with compensatory measures used as needed. LTG Duration 08/28/19 One Impairment Pt lacks a self care HEP Engineering Lecturer Goal (LTG) Pt will be independent in a self care HEP to prevent onset of L LBP with activity and allow pt to manage her condition at a tolerable level . LTG Duration 08/28/19 Assessment Summary Assessment PT did not feel the K-tape was helpful. Pt much improved her TA activation and strength on the L side, but now needs neuro re-education for symmetrical movement of LE's with daily activities to help stabilize her pelvis. To start her pelvis was symmetrical. The lumbar spine appears anatomically correct. Pt is progressing well. She has not decided on a SIJ belt and would like to look further. Physical Therapy Plan Frequency and Duration Frequency of Treatment 2x/Week Duration of Treatment 8-12 weeks Plan of Care Start Date 06/05/19 Plan of Care End Date 08/28/19 Next Visit Focus/Plan Next Note Type Treatment Note Next Visit Plan Review with pt the best SIJ belt for pt to purchase and make recommendation. When she has an SI Belt, teach pt proper donning of belt for compression at the L SIJ. Try K-tape for compression to L SIJ. Check for upslip of R innominate, then teach pt self correction for rotated innominate dysfunction. Manual therapy to correct sacral and lumbar positional dysfunctions as needed and progress therapeutic exercise for core/pelvic stabilization. When pt has awareness of ability to stabilize the core, initiate LE ROM and strengthening exercise (for weak hip IR and L knee flexion (S2), and decreased in hip ER mobility).
--- NOTE | 2019-06-16 16:59 | PT.OTN ---
Current Diagnoses Sacroiliitis, not elsewhere classified (06/16/19) Spinal instabilities, sacral and sacrococcygeal region (06/16/19) Radiculopathy, lumbar region (06/16/19) Physical Therapy Treatment Note PT-OP-A Visit Information Start: 06/05/19 11:21 Freq: Status: Active Protocol: Document 06/16/19 10:33 LRN (Rec: 06/16/19 11:22 LRN [id number]) Out-Patient Physical Therapy Visit Information Visit Information Visit Type Treatment Note Visit Start Time 10:33 Visit Stop Time 11:21 Total Visit Minutes 52 Visit Number 4 Evaluation Information Evaluation Date 06/05/19 Precautions Precautions Depression Assessed with L SIJ instability PT-OP-B Current Condition Start: 06/05/19 11:21 Freq: Status: Active Protocol: Document 06/05/19 11:55 LRN (Rec: 06/05/19 18:09 LRN [id number]) Current Condition History of Current Condition Onset Date 2002 Current Complaints Intermittent severe L low back pain at SIJ level History of Current Condition Pt reports in 2002 she was helping her spouse move a 100# boat battery when he suddenly dropped it, leaving her holding it with her R hand and standing primarily on her R LE. She felt immediate pain in the L low back and has had back pain since. At one time she was taking a lot of IBP and Tylenol for her pain and found some relief with IBP. She has since been placed on a therapeutic dose of IBP but the pt is worried about taking too many medications. She was told at one time while on a trip to [facility], by a [facility] doctor, that she needed surgery but was unable to afford it. She thinks the reason was because she had no disc space at L5-S1. She currently has intermittent L low back pain that she has learned to self manipulate, but is never sure when it will click out of place. Prior Treatments and Tests MRI & X-rays taken in [facility] MRI & X-rays @ [facility] 05/26/19 Future Testing and Treatments Planned Possible cortisone injection Treatment Goals Patient/Caregiver Goals Pt goal is to become painfree and learn how to manage her condition to prevent onset. Prior Functional Status Baseline Function- ADL's Independent Baseline Function- Mobility Independent Current Functional Impairments (Reported) Functional Limitations- ADL's Able to sit or lie on a soft surface for a very short period of time. Slow and cautious with movement. Personal Factors Other Personal Factors That May Effect Chronicity of condition Therapy/Recovery Depression PT-OP-C Subjective Start: 06/05/19 11:21 Freq: Status: Active Protocol: Document 06/16/19 10:33 LRN (Rec: 06/16/19 11:22 LRN [id number]) OP-PT Subjective Patient Comments Patient Comments Clicking in the back when doing double leg lifts in supine PT-OP-F Manual Assessment Start: 06/05/19 11:21 Freq: Status: Active Protocol: Document 06/05/19 11:55 LRN (Rec: 06/05/19 18:09 LRN [id number]) Manual Assessments Soft Tissue Assessment Soft Tissue Mobility Assessment Muscle guarding in lumbar paraspinal region, upper gluteals. Joint Mobility Assessment Joint Mobility Assessment Deferred due to patient apprehension of creating pain. PT-OP-G Mobility & Gait Start: 06/05/19 11:21 Freq: Status: Active Protocol: Document 06/05/19 11:55 LRN (Rec: 06/05/19 18:09 LRN [id number]) OP Mobility Evaluation Bed Mobility Supine to and from Sit Pt transfers supine to sit by doing a sit up. PT-OP-H Neuro Start: 06/05/19 11:21 Freq: Status: Active Protocol: Document 06/05/19 11:55 LRN (Rec: 06/05/19 18:09 LRN [id number]) Sensation Evaluation Gross Sensation Gross Sensation WNL Deep Tendon Reflex & Clonus Assessment Deep Tendon Reflex Bilateral Achilles Deep Tendon Reflex 1+ Diminished Bilateral Patellar Deep Tendon Reflex 4+ Brisk PT-OP-J Posture/Palpation/Skin Start: 06/05/19 11:21 Freq: Status: Active Protocol: Document 06/05/19 11:55 LRN (Rec: 06/05/19 18:09 LRN [id number]) Posture Evaluation Position Standing Head/C-Spine Posture Neutral Position C-Spine Flattened T-Spine Posture Flattened Flexible Scoliosis on (L) L-Spine Posture Increased Lordosis Flexible Scoliosis on (L) Shoulder Posture (L) Elevated Scapula Posture (L) Elevated Pelvis Posture Anteriorly Tilted Weight Distribution Balanced Knee Posture (L) Genu Recurvatum (R) Genu Recurvatum Ankle/Foot Posture (R) Calcaneal Eversion Palpation Assessment Location Lumbar Palpation Location Lumbar region Palpation Findings Muscle Guarding Palpation Details Lumbar spine is in L rotation. Sacrum Palpation Location Sacrum in prone Palpation Findings Tenderness Palpation Details Sacrum is rotated left and flexed on the right, extended on the left. PT-OP-K Range of Motion Start: 06/05/19 11:21 Freq: Status: Active Protocol: Document 06/05/19 11:55 LRN (Rec: 06/05/19 18:09 LRN [id number]) Lumbar Spine Range of Motion Lumbar Spine Active Degrees Testing Position Standing Flexion 95 Extension 5 Rotation Left 20 Rotation Right 30 Lateral Flexion Left 7 Lateral Flexion Right 10 ROM Limitations Soft Tissue Tightness Bony Restriction Comments Fear limiting with extension. Pt lacks lumbar vertebral movement for flexion, spine is straight with forward bending , straight with sidebending, straight with L rotation. Hip Goniometric Range of Motion Hip Right Passive Testing Position Supine Straight Leg Raise 110 Internal Rotation 45 External Rotation 55 Left Passive Testing Position Supine Straight Leg Raise 75 Internal Rotation 45 External Rotation 50 PT-OP-L Special Tests Start: 06/05/19 11:21 Freq: Status: Active Protocol: Document 06/09/19 14:14 LRN (Rec: 06/09/19 15:05 LRN [id number]) Special Tests Other Special Tests Special Tests March Test + on the Right PT-OP-M Strength Start: 06/05/19 11:21 Freq: Status: Active Protocol: Document 06/05/19 11:55 LRN (Rec: 06/05/19 18:09 LRN [id number]) Trunk Strength Trunk Manual Muscle Testing Testing Position Supine Comments Fair to Poor trunk stabilization with resistance given to LE's Hip Strength Hip Manual Muscle Testing Right Internal Rotation 4+ Good+ Comments Strength is generally 5/5 except those mentioned above. Left Adduction 4 Good Internal Rotation 4 Good Comments Strength is generally 5/5 except those mentioned above. Knee Strength Knee Manual Muscle Testing Right Flexion (S2) 4+ Good+ Extension (L3) 5 Normal Comments Hamstring (S2) Left Reason Not Measured WFL Ankle/Foot Strength Ankle and Foot Manual Muscle Testing Right Reason Not Measured WFL Left Reason Not Measured WFL Toe Strength Toe Manual Muscle Testing Right Great Toe Extension 5 Normal Left Great Toe Extension 5 Normal PT-OP-Q Treatments Start: 06/05/19 11:21 Freq: Status: Active Protocol: Document 06/16/19 10:33 LRN (Rec: 06/16/19 11:22 LRN [id number]) Gym Equipment Cable Column (Body Solid) Leg Curl Details Knee flex. Seat 6 holes showing. Wearing Blue strap Resistance 30# Reps/Time 15x Leg Extension Details Knee Ext. Seat 6 holes showing. Wearing Blue strap Resistance 20# Reps/Time 15 x Hip Adduction Details Hip AD. Seat 4 holes showing. Wearing Blue strap Resistance 30# Reps/Time 15 x 2 Hip Abduction Details Hip AB. Seat 4 holes showing. Wearing Blue strap Resistance 30# Reps/Time 15 x 2 Therapeutic Exercises Sitting Exercises Hip IR Sitting Exercise Name Foot out swings Side bilateral Resistance 2# Equipment Used 10x 3 LE Roll in/out Sitting Exercise Name LE Roll in/outs with self manual resistance. Side bilateral Resistance Manual Reps/Minutes Blue strap Manual Therapy Treatment Taping L SIJ Body Location L ASIS>SIJ Treatment Focus L SIJ Compression Type of Tape Kinesio Tape Skin Inspection Good Comments 2 I strips. Pt I/S in removal of tape within 5 days or 1 day before next appt, or if signs of allergic reaction discussed PT-OP-T Assessment and Plan Start: 06/05/19 11:21 Freq: Status: Active Protocol: Document 06/16/19 10:33 LRN (Rec: 06/16/19 11:22 LRN [id number]) Physical Therapy Assessment Assessment Summary Assessment Pt given referral slip for SI belt to give to MD at next appt. Pt doesn't have a picture of the SI Belt she'd like to use, but will take a referral for MD to sign at next appt 06/24/19. Pt shows good knowledge of stabilizing core and equal TA contraction with exercise. No clicking in SIJ with belt. Pt has +January test on left. Decreased SIJ mobility on Right. Physical Therapy Plan Frequency and Duration Frequency of Treatment 2x/Week Duration of Treatment 8-12 weeks Plan of Care Start Date 06/05/19 Plan of Care End Date 08/28/19 Next Visit Focus/Plan Next Note Type Treatment Note Next Visit Plan Check for upslip of R innominate, then teach pt self correction for rotated innominate dysfunction. Manual therapy to correct sacral and lumbar positional dysfunctions as needed and progress therapeutic exercise for core/pelvic stabilization. If pt brings in papers of SIJ belts she is interested in , review with pt the best SIJ belt for pt to purchase and make recommendations. When she has an SI Belt, teach pt proper donning of belt for compression at the L SIJ. When pt has awareness of ability to stabilize the core, progress LE ROM and strengthening exercise (for weak hip IR and L knee flexion (S2), and decreased in hip ER mobility).
--- NOTE | 2019-06-22 10:20 | PT.OTN ---
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 She felt immediate pain in the L low back and has had back pain since. At one time she was taking a lot of IBP and Tylenol for her pain and found some relief with IBP. She has since been placed on a therapeutic dose of IBP but the pt is worried about taking too many medications. She was told at one time while on a trip to [facility] [place], by a [facility] doctor, that she needed surgery but was unable to afford it. She thinks the reason was because she had no disc space at L5-S1. She currently has intermittent L low back pain that she has learned to self manipulate, but is never sure when it will click out of place. Prior Treatments and Tests MRI & X-rays taken in [facility] [place] MRI & X-rays @ [facility] 05/26/19 Future Testing and Treatments Planned Possible cortisone injection Treatment Goals Patient/Caregiver Goals Pt goal is to become painfree and learn how to manage her condition to prevent onset. Prior Functional Status Baseline Function- ADL's Independent Baseline Function- Mobility Independent Current Functional Impairments (Reported) Functional Limitations- ADL's Able to sit or lie on a soft surface for a very short period of time. Slow and cautious with movement. Personal Factors Other Personal Factors That May Effect Chronicity of condition Therapy/Recovery Depression PT-OP-C Subjective Start: 06/05/19 11:21 Freq: Status: Active Protocol: Document 06/22/19 08:19 LRN (Rec: 06/22/19 09:05 LRN [id number]) OP-PT Subjective Patient Comments Patient Comments No pain , just clicking and realigning getting out of bed. PT-OP-F Manual Assessment Start: 06/05/19 11:21 Freq: Status: Active Protocol: Document 06/05/19 11:55 LRN (Rec: 06/05/19 18:09 LRN [id number]) Manual Assessments Soft Tissue Assessment Soft Tissue Mobility Assessment Muscle guarding in lumbar paraspinal region, upper gluteals. Joint Mobility Assessment Joint Mobility Assessment Deferred due to patient apprehension of creating pain. PT-OP-G Mobility & Gait Start: 06/05/19 11:21 Freq: Status: Active Protocol: Document 06/05/19 11:55 LRN (Rec: 06/05/19 18:09 LRN [id number]) OP Mobility Evaluation Bed Mobility Supine to and from Sit Pt transfers supine to sit by doing a sit up. PT-OP-H Neuro Start: 06/05/19 11:21 Freq: Status: Active Protocol: Document 06/05/19 11:55 LRN (Rec: 06/05/19 18:09 LRN [id number]) Sensation Evaluation Gross Sensation Gross Sensation WNL Deep Tendon Reflex & Clonus Assessment Deep Tendon Reflex Bilateral Achilles Deep Tendon Reflex 1+ Diminished Bilateral Patellar Deep Tendon Reflex 4+ Brisk PT-OP-J Posture/Palpation/Skin Start: 06/05/19 11:21 Freq: Status: Active Protocol: Document 06/05/19 11:55 LRN (Rec: 06/05/19 18:09 LRN [id number]) Posture Evaluation Position Standing Head/C-Spine Posture Neutral Position C-Spine Flattened T-Spine Posture Flattened Flexible Scoliosis on (L) L-Spine Posture Increased Lordosis Flexible Scoliosis on (L) Shoulder Posture (L) Elevated Scapula Posture (L) Elevated Pelvis Posture Anteriorly Tilted Weight Distribution Balanced Knee Posture (L) Genu Recurvatum (R) Genu Recurvatum Ankle/Foot Posture (R) Calcaneal Eversion Palpation Assessment Location Lumbar Palpation Location Lumbar region Palpation Findings Muscle Guarding Palpation Details Lumbar spine is in L rotation. Sacrum Palpation Location Sacrum in prone Palpation Findings Tenderness Palpation Details Sacrum is rotated left and flexed on the right, extended on the left. PT-OP-K Range of Motion Start: 06/05/19 11:21 Freq: Status: Active Protocol: Document 06/05/19 11:55 LRN (Rec: 06/05/19 18:09 LRN [id number]) Lumbar Spine Range of Motion Lumbar Spine Active Degrees Testing Position Standing Flexion 95 Extension 5 Rotation Left 20 Rotation Right 30 Lateral Flexion Left 7 Lateral Flexion Right 10 ROM Limitations Soft Tissue Tightness Bony Restriction Comments Fear limiting with extension. Pt lacks lumbar vertebral movement for flexion, spine is straight with forward bending , straight with sidebending, straight with L rotation. Hip Goniometric Range of Motion Hip Right Passive Testing Position Supine Straight Leg Raise 110 Internal Rotation 45 External Rotation 55 Left Passive Testing Position Supine Straight Leg Raise 75 Internal Rotation 45 External Rotation 50 PT-OP-L Special Tests Start: 06/05/19 11:21 Freq: Status: Active Protocol: Document 06/09/19 14:14 LRN (Rec: 06/09/19 15:05 LRN [id number]) Special Tests Other Special Tests Special Tests March Test + on the Right PT-OP-M Strength Start: 06/05/19 11:21 Freq: Status: Active Protocol: Document 06/05/19 11:55 LRN (Rec: 06/05/19 18:09 LRN [id number]) Trunk Strength Trunk Manual Muscle Testing Testing Position Supine Comments Fair to Poor trunk stabilization with resistance given to LE's Hip Strength Hip Manual Muscle Testing Right Internal Rotation 4+ Good+ Comments Strength is generally 5/5 except those mentioned above. Left Adduction 4 Good Internal Rotation 4 Good Comments Strength is generally 5/5 except those mentioned above. Knee Strength Knee Manual Muscle Testing Right Flexion (S2) 4+ Good+ Extension (L3) 5 Normal Comments Hamstring (S2) Left Reason Not Measured WFL Ankle/Foot Strength Ankle and Foot Manual Muscle Testing Right Reason Not Measured WFL Left Reason Not Measured WFL Toe Strength Toe Manual Muscle Testing Right Great Toe Extension 5 Normal Left Great Toe Extension 5 Normal PT-OP-Q Treatments Start: 06/05/19 11:21 Freq: Status: Active Protocol: Document 06/22/19 08:19 LRN (Rec: 06/22/19 09:05 LRN [id number]) Gym Equipment Cable Column (Body Solid) Leg Curl Details Knee flex. Seat 6 holes showing. Wearing Blue strap Resistance 35# Reps/Time 8x 3 Leg Extension Details Knee Ext. Seat 6 holes showing. Wearing Blue strap Resistance 25# Reps/Time 8rep x3 Hip Adduction Details Hip AD. Seat 4 holes showing. Wearing Blue strap Resistance 35# Reps/Time 15 x 2 Hip Abduction Details Hip AB. Seat 4 holes showing. Wearing Blue strap Resistance 35# Reps/Time 15 x 2 Therapeutic Exercises Supine Exercises TA/PF/Hip ext Supine Exercise Name TA/PF/Bridging Reps/Minutes 10 sec holds x 8 reps Sidelying Exercises Clamshell Sidelying Exercise Name Clamshell Side bilateral Reps/Minutes 10 x 3 Sitting Exercises Hip IR Sitting Exercise Name Foot out swings Side bilateral Equipment Used 15x, 5 sec holds Manual Therapy Treatment Joint Mobilizations SIJ Joint R SIJ Direction Correction for a inflare Body Position Sup Reps/Duration 3x Comments Corrected after 3 reps Self-Care/Home Management Treatment Education Patient Education Home Exercise Program Activities Self-Care/Home Management Activities Issued & reviewed HEP: Supine : TA/PF with hip AD, AB, & bridging. PT-OP-T Assessment and Plan Start: 06/05/19 11:21 Freq: Status: Active Protocol: Document 06/22/19 08:19 LRN (Rec: 06/22/19 09:05 LRN [id number]) Physical Therapy Assessment Assessment Summary Assessment Per pt subjective reports she appears to be self mobilizing her L SIJ and spine in the mornings. Today she was inflared on R and outflared on L. She has a L hyper mobile SIJ; therefore she is stiff on the right. Pt appears consistent with her HEP and is progressing as expected except her pelvic obiliquity is variable (inflare/outflare vs rotated). Doubtful of upslip due to pt is easily normalized with mobs correcting inflare/outflare and rotation. Physical Therapy Plan Frequency and Duration Frequency of Treatment 2x/Week Duration of Treatment 8-12 weeks Plan of Care Start Date 06/05/19 Plan of Care End Date 08/28/19 Next Visit Focus/Plan Next Note Type Treatment Note Next Visit Plan Mobilize R SIJ for improved mobility and monitor for pelvic obliquity (due to hyper mobile L rotated or L inflared innominate. Initiate hip ER ROM exercise. Progress therapeutic exercise for core/pelvic stabilization, issue HEP: clamshell and sitting hip IR strengthening. Pt to see 06/23/19 & will seek referral for SI belt. If pt brings in papers of SIJ belts she is interested in, review with pt the best SIJ belt for pt to purchase and make recommendations. When she has an SI Belt, teach pt proper donning of belt for compression at the L SIJ. Progress LE ROM and strengthening exercise (for weak hip IR and L knee flexion (S2), and decreased in hip ER mobility).
--- NOTE | 2019-06-23 12:09 | PT.OTN ---
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 She felt immediate pain in the L low back and has had back pain since. At one time she was taking a lot of IBP and Tylenol for her pain and found some relief with IBP. She has since been placed on a therapeutic dose of IBP but the pt is worried about taking too many medications. She was told at one time while on a trip to [facility], by a [facility] doctor, that she needed surgery but was unable to afford it. She thinks the reason was because she had no disc space at L5-S1. She currently has intermittent L low back pain that she has learned to self manipulate, but is never sure when it will click out of place. Prior Treatments and Tests MRI & X-rays taken in [facility] MRI & X-rays @ [facility] 05/26/19 Future Testing and Treatments Planned Possible cortisone injection Treatment Goals Patient/Caregiver Goals Pt goal is to become painfree and learn how to manage her condition to prevent onset. Prior Functional Status Baseline Function- ADL's Independent Baseline Function- Mobility Independent Current Functional Impairments (Reported) Functional Limitations- ADL's Able to sit or lie on a soft surface for a very short period of time. Slow and cautious with movement. Personal Factors Other Personal Factors That May Effect Chronicity of condition Therapy/Recovery Depression PT-OP-C Subjective Start: 06/05/19 11:21 Freq: Status: Active Protocol: Document 06/23/19 11:16 LRN (Rec: 06/23/19 12:09 LRN [id number]) OP-PT Subjective Patient Comments Patient Comments Seeing MD today about MRI. First thing in the morning before getting out of bed, found doing clamshell eliminated the clicking in the back. PT-OP-F Manual Assessment Start: 06/05/19 11:21 Freq: Status: Active Protocol: Document 06/05/19 11:55 LRN (Rec: 06/05/19 18:09 LRN [id number]) Manual Assessments Soft Tissue Assessment Soft Tissue Mobility Assessment Muscle guarding in lumbar paraspinal region, upper gluteals. Joint Mobility Assessment Joint Mobility Assessment Deferred due to patient apprehension of creating pain. PT-OP-G Mobility & Gait Start: 06/05/19 11:21 Freq: Status: Active Protocol: Document 06/05/19 11:55 LRN (Rec: 06/05/19 18:09 LRN [id number]) OP Mobility Evaluation Bed Mobility Supine to and from Sit Pt transfers supine to sit by doing a sit up. PT-OP-H Neuro Start: 06/05/19 11:21 Freq: Status: Active Protocol: Document 06/05/19 11:55 LRN (Rec: 06/05/19 18:09 LRN [id number]) Sensation Evaluation Gross Sensation Gross Sensation WNL Deep Tendon Reflex & Clonus Assessment Deep Tendon Reflex Bilateral Achilles Deep Tendon Reflex 1+ Diminished Bilateral Patellar Deep Tendon Reflex 4+ Brisk PT-OP-J Posture/Palpation/Skin Start: 06/05/19 11:21 Freq: Status: Active Protocol: Document 06/05/19 11:55 LRN (Rec: 06/05/19 18:09 LRN [id number]) Posture Evaluation Position Standing Head/C-Spine Posture Neutral Position C-Spine Flattened T-Spine Posture Flattened Flexible Scoliosis on (L) L-Spine Posture Increased Lordosis Flexible Scoliosis on (L) Shoulder Posture (L) Elevated Scapula Posture (L) Elevated Pelvis Posture Anteriorly Tilted Weight Distribution Balanced Knee Posture (L) Genu Recurvatum (R) Genu Recurvatum Ankle/Foot Posture (R) Calcaneal Eversion Palpation Assessment Location Lumbar Palpation Location Lumbar region Palpation Findings Muscle Guarding Palpation Details Lumbar spine is in L rotation. Sacrum Palpation Location Sacrum in prone Palpation Findings Tenderness Palpation Details Sacrum is rotated left and flexed on the right, extended on the left. PT-OP-K Range of Motion Start: 06/05/19 11:21 Freq: Status: Active Protocol: Document 06/05/19 11:55 LRN (Rec: 06/05/19 18:09 LRN [id number]) Lumbar Spine Range of Motion Lumbar Spine Active Degrees Testing Position Standing Flexion 95 Extension 5 Rotation Left 20 Rotation Right 30 Lateral Flexion Left 7 Lateral Flexion Right 10 ROM Limitations Soft Tissue Tightness Bony Restriction Comments Fear limiting with extension. Pt lacks lumbar vertebral movement for flexion, spine is straight with forward bending , straight with sidebending, straight with L rotation. Hip Goniometric Range of Motion Hip Right Passive Testing Position Supine Straight Leg Raise 110 Internal Rotation 45 External Rotation 55 Left Passive Testing Position Supine Straight Leg Raise 75 Internal Rotation 45 External Rotation 50 PT-OP-L Special Tests Start: 06/05/19 11:21 Freq: Status: Active Protocol: Document 06/09/19 14:14 LRN (Rec: 06/09/19 15:05 LRN [id number]) Special Tests Other Special Tests Special Tests March Test + on the Right PT-OP-M Strength Start: 06/05/19 11:21 Freq: Status: Active Protocol: Document 06/05/19 11:55 LRN (Rec: 06/05/19 18:09 LRN [id number]) Trunk Strength Trunk Manual Muscle Testing Testing Position Supine Comments Fair to Poor trunk stabilization with resistance given to LE's Hip Strength Hip Manual Muscle Testing Right Internal Rotation 4+ Good+ Comments Strength is generally 5/5 except those mentioned above. Left Adduction 4 Good Internal Rotation 4 Good Comments Strength is generally 5/5 except those mentioned above. Knee Strength Knee Manual Muscle Testing Right Flexion (S2) 4+ Good+ Extension (L3) 5 Normal Comments Hamstring (S2) Left Reason Not Measured WFL Ankle/Foot Strength Ankle and Foot Manual Muscle Testing Right Reason Not Measured WFL Left Reason Not Measured WFL Toe Strength Toe Manual Muscle Testing Right Great Toe Extension 5 Normal Left Great Toe Extension 5 Normal PT-OP-Q Treatments Start: 06/05/19 11:21 Freq: Status: Active Protocol: Document 06/23/19 11:16 LRN (Rec: 06/23/19 12:09 LRN [id number]) Cardio Equipment Bicycle (Upright) Duration (Minutes) 10 Resistance 3 Seat Position 2 Gym Equipment Cable Column (Body Solid) Leg Curl Details Knee flex. Seat 6 holes showing. Wearing Blue strap Resistance 35# Reps/Time 10x 3 Leg Extension Details Knee Ext. Seat 6 holes showing. Wearing Blue strap Resistance 30# Reps/Time 8rep x3 Hip Abduction Details Hip AB. Seat 4 holes showing. Wearing Blue strap Resistance 35# Reps/Time 15 x 2 Therapeutic Exercises Supine Exercises Fig 4 stretch Supine Exercise Name Fig 4 stretch f/b active hip ER Side left Reps/Minutes 3' Comments Roll under L buttock. Extra time taken for training Sidelying Exercises Clamshell Sidelying Exercise Name Clamshell Side bilateral Resistance 3# Reps/Minutes 10 x 3 PT-OP-T Assessment and Plan Start: 06/05/19 11:21 Freq: Status: Active Protocol: Document 06/23/19 11:16 LRN (Rec: 06/23/19 12:09 LRN [id number]) Physical Therapy Assessment Assessment Summary Assessment Pt reporting L SIJ unstable but easily self mobilizes into place. L hip ER is decreased in mobility compared to right & L hip AB is notably weak by the pt on the Dual mary hip AB ex. Physical Therapy Plan Frequency and Duration Frequency of Treatment 2x/Week Duration of Treatment 8-12 weeks Plan of Care Start Date 06/05/19 Plan of Care End Date 08/28/19 Next Visit Focus/Plan Next Note Type Treatment Note Next Visit Plan Discuss result of pt MD visit from today (MRI, SI Belt, Prolotherpy). R SIJ mob for improved mobility and monitor for pelvic obliquity (due to hyper mobile L rotated or L inflared innominate). Progress therapeutic exercise for core/pelvic stabilization, issue HEP: clamshell and sitting hip IR strengthening. Pt to see MD 06/23/19 & will seek referral for SI belt. If pt brings in papers of SIJ belts she is interested in, review with pt the best SIJ belt for pt to purchase and make recommendations. When she has an SI Belt, teach pt proper donning of belt for compression at the L SIJ. Progress LE ROM and strengthening exercise (for weak hip IR and L knee flexion (S2), and decreased in hip ER mobility).
--- NOTE | 2019-06-23 12:15 | PT.OTN ---
Current Diagnoses Sacroiliitis, not elsewhere classified (06/23/19) Spinal instabilities, sacral and sacrococcygeal region (06/23/19) Radiculopathy, lumbar region (06/23/19) Physical Therapy Treatment Note PT-OP-A Visit Information Start: 06/05/19 11:21 Freq: Status: Active Protocol: Document 06/23/19 11:16 LRN (Rec: 06/23/19 12:09 LRN [id number]) Out-Patient Physical Therapy Visit Information Visit Information Visit Type Treatment Note Visit Start Time 11:16 Visit Stop Time 12:01 Total Visit Minutes 45 Visit Number 7 Number of CHEMIST WATER PURIFICATION Visits 0 Evaluation Information Evaluation Date 06/05/19 Precautions Precautions Depression Assessed with L SIJ instability PT-OP-B Current Condition Start: 06/05/19 11:21 Freq: Status: Active Protocol: Document 06/05/19 11:55 LRN (Rec: 06/05/19 18:09 LRN [id number]) Current Condition History of Current Condition Onset Date 2002 Current Complaints Intermittent severe L low back pain at SIJ level History of Current Condition Pt reports in 2002 she was helping her spouse move a 100# boat battery when he suddenly dropped it, leaving her holding it with her R hand and standing primarily on her R LE. She felt immediate pain in the L low back and has had back pain since. At one time she was taking a lot of IBP and Tylenol for her pain and found some relief with IBP. She has since been placed on a therapeutic dose of IBP but the pt is worried about taking too many medications. She was told at one time while on a trip to [facility], by a [facility] doctor, that she needed surgery but was unable to afford it. She thinks the reason was because she had no disc space at L5-S1. She currently has intermittent L low back pain that she has learned to self manipulate, but is never sure when it will click out of place. Prior Treatments and Tests MRI & X-rays taken in [facility] MRI & X-rays @ [facility] 05/26/19 Future Testing and Treatments Planned Possible cortisone injection Treatment Goals Patient/Caregiver Goals Pt goal is to become painfree and learn how to manage her condition to prevent onset. Prior Functional Status Baseline Function- ADL's Independent Baseline Function- Mobility Independent Current Functional Impairments (Reported) Functional Limitations- ADL's Able to sit or lie on a soft surface for a very short period of time. Slow and cautious with movement. Personal Factors Other Personal Factors That May Effect Chronicity of condition Therapy/Recovery Depression PT-OP-C Subjective Start: 06/05/19 11:21 Freq: Status: Active Protocol: Document 06/23/19 11:16 LRN (Rec: 06/23/19 12:09 LRN [id number]) OP-PT Subjective Patient Comments Patient Comments Seeing MD today about MRI. First thing in the morning before getting out of bed, found doing clamshell eliminated the clicking in the back. PT-OP-F Manual Assessment Start: 06/05/19 11:21 Freq: Status: Active Protocol: Document 06/05/19 11:55 LRN (Rec: 06/05/19 18:09 LRN [id number]) Manual Assessments Soft Tissue Assessment Soft Tissue Mobility Assessment Muscle guarding in lumbar paraspinal region, upper gluteals. Joint Mobility Assessment Joint Mobility Assessment Deferred due to patient apprehension of creating pain. PT-OP-G Mobility & Gait Start: 06/05/19 11:21 Freq: Status: Active Protocol: Document 06/05/19 11:55 LRN (Rec: 06/05/19 18:09 LRN [id number]) OP Mobility Evaluation Bed Mobility Supine to and from Sit Pt transfers supine to sit by doing a sit up. PT-OP-H Neuro Start: 06/05/19 11:21 Freq: Status: Active Protocol: Document 06/05/19 11:55 LRN (Rec: 06/05/19 18:09 LRN [id number]) Sensation Evaluation Gross Sensation Gross Sensation WNL Deep Tendon Reflex & Clonus Assessment Deep Tendon Reflex Bilateral Achilles Deep Tendon Reflex 1+ Diminished Bilateral Patellar Deep Tendon Reflex 4+ Brisk PT-OP-J Posture/Palpation/Skin Start: 06/05/19 11:21 Freq: Status: Active Protocol: Document 06/05/19 11:55 LRN (Rec: 06/05/19 18:09 LRN [id number]) Posture Evaluation Position Standing Head/C-Spine Posture Neutral Position C-Spine Flattened T-Spine Posture Flattened Flexible Scoliosis on (L) L-Spine Posture Increased Lordosis Flexible Scoliosis on (L) Shoulder Posture (L) Elevated Scapula Posture (L) Elevated Pelvis Posture Anteriorly Tilted Weight Distribution Balanced Knee Posture (L) Genu Recurvatum (R) Genu Recurvatum Ankle/Foot Posture (R) Calcaneal Eversion Palpation Assessment Location Lumbar Palpation Location Lumbar region Palpation Findings Muscle Guarding Palpation Details Lumbar spine is in L rotation. Sacrum Palpation Location Sacrum in prone Palpation Findings Tenderness Palpation Details Sacrum is rotated left and flexed on the right, extended on the left. PT-OP-K Range of Motion Start: 06/05/19 11:21 Freq: Status: Active Protocol: Document 06/05/19 11:55 LRN (Rec: 06/05/19 18:09 LRN [id number]) Lumbar Spine Range of Motion Lumbar Spine Active Degrees Testing Position Standing Flexion 95 Extension 5 Rotation Left 20 Rotation Right 30 Lateral Flexion Left 7 Lateral Flexion Right 10 ROM Limitations Soft Tissue Tightness Bony Restriction Comments Fear limiting with extension. Pt lacks lumbar vertebral movement for flexion, spine is straight with forward bending , straight with sidebending, straight with L rotation. Hip Goniometric Range of Motion Hip Right Passive Testing Position Supine Straight Leg Raise 110 Internal Rotation 45 External Rotation 55 Left Passive Testing Position Supine Straight Leg Raise 75 Internal Rotation 45 External Rotation 50 PT-OP-L Special Tests Start: 06/05/19 11:21 Freq: Status: Active Protocol: Document 06/09/19 14:14 LRN (Rec: 06/09/19 15:05 LRN [id number]) Special Tests Other Special Tests Special Tests March Test + on the Right PT-OP-M Strength Start: 06/05/19 11:21 Freq: Status: Active Protocol: Document 06/05/19 11:55 LRN (Rec: 06/05/19 18:09 LRN [id number]) Trunk Strength Trunk Manual Muscle Testing Testing Position Supine Comments Fair to Poor trunk stabilization with resistance given to LE's Hip Strength Hip Manual Muscle Testing Right Internal Rotation 4+ Good+ Comments Strength is generally 5/5 except those mentioned above. Left Adduction 4 Good Internal Rotation 4 Good Comments Strength is generally 5/5 except those mentioned above. Knee Strength Knee Manual Muscle Testing Right Flexion (S2) 4+ Good+ Extension (L3) 5 Normal Comments Hamstring (S2) Left Reason Not Measured WFL Ankle/Foot Strength Ankle and Foot Manual Muscle Testing Right Reason Not Measured WFL Left Reason Not Measured WFL Toe Strength Toe Manual Muscle Testing Right Great Toe Extension 5 Normal Left Great Toe Extension 5 Normal PT-OP-Q Treatments Start: 06/05/19 11:21 Freq: Status: Active Protocol: Document 06/23/19 11:16 LRN (Rec: 06/23/19 12:09 LRN [id number]) Cardio Equipment Bicycle (Upright) Duration (Minutes) 10 Resistance 3 Seat Position 2 Gym Equipment Cable Column (Body Solid) Leg Curl Details Knee flex. Seat 6 holes showing. Wearing Blue strap Resistance 35# Reps/Time 10x 3 Leg Extension Details Knee Ext. Seat 6 holes showing. Wearing Blue strap Resistance 30# Reps/Time 8rep x3 Hip Abduction Details Hip AB. Seat 4 holes showing. Wearing Blue strap Resistance 35# Reps/Time 15 x 2 Therapeutic Exercises Supine Exercises Fig 4 stretch Supine Exercise Name Fig 4 stretch f/b active hip ER Side left Reps/Minutes 3' Comments Roll under L buttock. Extra time taken for training Sidelying Exercises Clamshell Sidelying Exercise Name Clamshell Side bilateral Resistance 3# Reps/Minutes 10 x 3 Self-Care/Home Management Treatment Education Patient Education Home Exercise Program Activities Self-Care/Home Management Activities Issued & reviewed HEP: Fig 4 stretch with follow up active hip ER stretch. PT-OP-T Assessment and Plan Start: 06/05/19 11:21 Freq: Status: Active Protocol: Document 06/23/19 11:16 LRN (Rec: 06/23/19 12:09 LRN [id number]) Physical Therapy Assessment Assessment Summary Assessment Pt reporting L SIJ unstable but easily self mobilizes into place. L hip ER is decreased in mobility compared to right & L hip AB is notably weak by the pt on the Dual mary hip AB ex. Physical Therapy Plan Frequency and Duration Frequency of Treatment 2x/Week Duration of Treatment 8-12 weeks Plan of Care Start Date 06/05/19 Plan of Care End Date 08/28/19 Next Visit Focus/Plan Next Note Type Treatment Note Next Visit Plan Discuss result of pt MD visit from today (MRI, SI Belt, Prolotherpy). R SIJ mob for improved mobility and monitor for pelvic obliquity (due to hyper mobile L rotated or L inflared innominate). Progress therapeutic exercise for core/pelvic stabilization, issue HEP: clamshell and sitting hip IR strengthening. Pt to see 06/23/19 & will seek referral for SI belt. If pt brings in papers of SIJ belts she is interested in, review with pt the best SIJ belt for pt to purchase and make recommendations. When she has an SI Belt, teach pt proper donning of belt for compression at the L SIJ. Progress LE ROM and strengthening exercise (for weak hip IR and L knee flexion (S2), and decreased in hip ER mobility).
--- NOTE | 2019-07-23 15:12 | PT.OTN ---
Current Diagnoses Sacroiliitis, not elsewhere classified (07/23/19) Spinal instabilities, sacral and sacrococcygeal region (07/23/19) Radiculopathy, lumbar region (07/23/19) Physical Therapy Treatment Note PT-OP-A Visit Information Start: 06/05/19 11:21 Freq: Status: Active Protocol: Document 07/23/19 09:07 LRN (Rec: 07/23/19 09:49 LRN [id number]) Out-Patient Physical Therapy Visit Information Visit Information Visit Type Treatment Note Visit Start Time 09:07 Visit Stop Time 09:49 Total Visit Minutes 42 Visit Number 8 Number of MANAGER ELECTRONIC Visits 0 Evaluation Information Evaluation Date 06/05/19 Precautions Precautions Depression Assessed with L SIJ instability PT-OP-B Current Condition Start: 06/05/19 11:21 Freq: Status: Active Protocol: Document 06/05/19 11:55 LRN (Rec: 06/05/19 18:09 LRN [id number]) Current Condition History of Current Condition Onset Date 2002 Current Complaints Intermittent severe L low back pain at SIJ level History of Current Condition Pt reports in 2002 she was helping her spouse move a 100# boat battery when he suddenly dropped it, leaving her holding it with her R hand and standing primarily on her R LE. She felt immediate pain in the L low back and has had back pain since. At one time she was taking a lot of IBP and Tylenol for her pain and found some relief with IBP. She has since been placed on a therapeutic dose of IBP but the pt is worried about taking too many medications. She was told at one time while on a trip to [facility], by a [facility] doctor, that she needed surgery but was unable to afford it. She thinks the reason was because she had no disc space at L5-S1. She currently has intermittent L low back pain that she has learned to self manipulate, but is never sure when it will click out of place. Prior Treatments and Tests MRI & X-rays taken in [facility] MRI & X-rays @ [facility] 05/26/19 Future Testing and Treatments Planned Possible cortisone injection Treatment Goals Patient/Caregiver Goals Pt goal is to become painfree and learn how to manage her condition to prevent onset. Prior Functional Status Baseline Function- ADL's Independent Baseline Function- Mobility Independent Current Functional Impairments (Reported) Functional Limitations- ADL's Able to sit or lie on a soft surface for a very short period of time. Slow and cautious with movement. Personal Factors Other Personal Factors That May Effect Chronicity of condition Therapy/Recovery Depression PT-OP-C Subjective Start: 06/05/19 11:21 Freq: Status: Active Protocol: Document 07/23/19 09:07 LRN (Rec: 07/23/19 09:49 LRN [id number]) OP-PT Subjective Patient Comments Patient Comments Seeing Ortho MD 07/27/19. States she just returned from a trip to [facility] and did not have any pain. Can now bend over and stretch her legs without pain. Would like to learn of more she can do. PT-OP-F Manual Assessment Start: 06/05/19 11:21 Freq: Status: Active Protocol: Document 06/05/19 11:55 LRN (Rec: 06/05/19 18:09 LRN [id number]) Manual Assessments Soft Tissue Assessment Soft Tissue Mobility Assessment Muscle guarding in lumbar paraspinal region, upper gluteals. Joint Mobility Assessment Joint Mobility Assessment Deferred due to patient apprehension of creating pain. PT-OP-G Mobility & Gait Start: 06/05/19 11:21 Freq: Status: Active Protocol: Document 06/05/19 11:55 LRN (Rec: 06/05/19 18:09 LRN [id number]) OP Mobility Evaluation Bed Mobility Supine to and from Sit Pt transfers supine to sit by doing a sit up. PT-OP-H Neuro Start: 06/05/19 11:21 Freq: Status: Active Protocol: Document 06/05/19 11:55 LRN (Rec: 06/05/19 18:09 LRN [id number]) Sensation Evaluation Gross Sensation Gross Sensation WNL Deep Tendon Reflex & Clonus Assessment Deep Tendon Reflex Bilateral Achilles Deep Tendon Reflex 1+ Diminished Bilateral Patellar Deep Tendon Reflex 4+ Brisk PT-OP-J Posture/Palpation/Skin Start: 06/05/19 11:21 Freq: Status: Active Protocol: Document 06/05/19 11:55 LRN (Rec: 06/05/19 18:09 LRN [id number]) Posture Evaluation Position Standing Head/C-Spine Posture Neutral Position,C-Spine Flattened T-Spine Posture Flattened,Flexible Scoliosis on (L) L-Spine Posture Increased Lordosis,Flexible Scoliosis on (L) Shoulder Posture (L) Elevated Scapula Posture (L) Elevated Pelvis Posture Anteriorly Tilted Weight Distribution Balanced Knee Posture (L) Genu Recurvatum,(R) Genu Recurvatum Ankle/Foot Posture (R) Calcaneal Eversion Palpation Assessment Location Lumbar Palpation Location Lumbar region Palpation Findings Muscle Guarding Palpation Details Lumbar spine is in L rotation. Sacrum Palpation Location Sacrum in prone Palpation Findings Tenderness Palpation Details Sacrum is rotated left and flexed on the right, extended on the left. PT-OP-K Range of Motion Start: 06/05/19 11:21 Freq: Status: Active Protocol: Document 06/05/19 11:55 LRN (Rec: 06/05/19 18:09 LRN [id number]) Lumbar Spine Range of Motion Lumbar Spine Active Degrees Testing Position Standing Flexion 95 Extension 5 Rotation Left 20 Rotation Right 30 Lateral Flexion Left 7 Lateral Flexion Right 10 ROM Limitations Soft Tissue Tightness,Bony Restriction Comments Fear limiting with extension. Pt lacks lumbar vertebral movement for flexion, spine is straight with forward bending , straight with sidebending, straight with L rotation. Hip Goniometric Range of Motion Hip Right Passive Testing Position Supine Straight Leg Raise 110 Internal Rotation 45 External Rotation 55 Left Passive Testing Position Supine Straight Leg Raise 75 Internal Rotation 45 External Rotation 50 PT-OP-L Special Tests Start: 06/05/19 11:21 Freq: Status: Active Protocol: Document 06/09/19 14:14 LRN (Rec: 06/09/19 15:05 LRN [id number]) Special Tests Other Special Tests Special Tests March Test + on the Right PT-OP-M Strength Start: 06/05/19 11:21 Freq: Status: Active Protocol: Document 06/05/19 11:55 LRN (Rec: 06/05/19 18:09 LRN [id number]) Trunk Strength Trunk Manual Muscle Testing Testing Position Supine Comments Fair to Poor trunk stabilization with resistance given to LE's Hip Strength Hip Manual Muscle Testing Right Internal Rotation 4+ Good+ Comments Strength is generally 5/5 except those mentioned above. Left Adduction 4 Good Internal Rotation 4 Good Comments Strength is generally 5/5 except those mentioned above. Knee Strength Knee Manual Muscle Testing Right Flexion (S2) 4+ Good+ Extension (L3) 5 Normal Comments Hamstring (S2) Left Reason Not Measured WFL Ankle/Foot Strength Ankle and Foot Manual Muscle Testing Right Reason Not Measured WFL Left Reason Not Measured WFL Toe Strength Toe Manual Muscle Testing Right Great Toe Extension 5 Normal Left Great Toe Extension 5 Normal PT-OP-Q Treatments Start: 06/05/19 11:21 Freq: Status: Active Protocol: Document 07/23/19 09:07 LRN (Rec: 07/23/19 09:49 LRN [id number]) Cardio Equipment Bicycle (Upright) Duration (Minutes) 5 Resistance 3 Seat Position 2 Gym Equipment Cable Column (Body Solid) Leg Curl Details Knee flex. Seat 6 holes showing. Wearing Blue strap Resistance 30# LLE, 35# BLE Reps/Time 10x 3 each Leg Extension Details Knee Ext. Seat 6 holes showing. Wearing Blue strap Resistance 30# Reps/Time 8rep x3 Hip Abduction Details Hip AB. Seat 4 holes showing. Resistance 35# Reps/Time 10 x 3 Therapeutic Exercises Supine Exercises Trunk Rotation Supine Exercise Name R Trunk rot Side right Feet off wall w/roll in/outs Supine Exercise Name Feet off wall w/roll in/outs Side bilateral Reps/Minutes 10x Feet off wall Supine Exercise Name Feet off wall Side bilateral Reps/Minutes 10x Fig 4 stretch Supine Exercise Name Fig 4 stretch f/b active hip ER Side left Reps/Minutes 3' Comments Roll under L buttock. Extra time taken for training Manual Therapy Treatment Joint Mobilizations SIJ Joint R SIJ Direction Assessment for dysfunction x 2 Body Position Sup Reps/Duration 2x Comments Self Corrected x 1 PT-OP-T Assessment and Plan Start: 06/05/19 11:21 Freq: Status: Active Protocol: Document 07/23/19 09:07 VINCENT (Rec: 07/23/19 09:49 LRN [id number]) Physical Therapy Assessment Goals Four Impairment Low back pain rated 4/10 Short Term Goal (STG) Pt will experience pain no greater than 2/10 with walking or standing for a 2 or more week interval. Fpc Goal (LTG) With activity pt will have L low back pain no greater than 1/10. LTG Duration 08/28/19 Three Impairment Pt unable to maintain pelvic stability at the L SIJ with transfers. Short Term Goal (STG) Pt will be able to stabilize the L SIJ with use of assistive device as necessary. STG Duration 06/26/19 Fpc Goal (LTG) Pt will be able to move from supine <-> sit and sit <-> stand 75% of the time without clicking and a feeling of instability in the L SIJ. LTG Duration 08/28/19 Two Impairment Pt unable to tolerate sitting on soft surfaces for any length of time. Short Term Goal (STG) Pt will be educated in proper sit posture and compensatory measures to improve tolerance to sitting. STG Duration 06/12/19 Terminal Operations Manager Goal (LTG) Pt will be able to tolerate sitting for 1 hour on various surfaces with compensatory measures used as needed. LTG Duration 08/28/19 One Impairment Pt lacks a self care HEP Fpc Goal (LTG) Pt will be independent in a self care HEP to prevent onset of L LBP with activity and allow pt to manage her condition at a tolerable level . LTG Duration 08/28/19 Assessment Summary Assessment Pt able to self mobilize by stretching L hip into ER. L hip ER is midly decreased in mobility compared to right & L hip AB is notably weak by the pt on the Dual mary hip AB ex. Further stabilization is needed. Physical Therapy Plan Frequency and Duration Frequency of Treatment 2x/Week Duration of Treatment 8-12 weeks Plan of Care Start Date 06/05/19 Plan of Care End Date 08/28/19 Next Visit Focus/Plan Next Note Type Treatment Note Next Visit Plan Discuss result of pt MD visit 07/27/19 (MRI, SI Belt referral, Prolotherpy). Add R SIJ mob to decompress (PA) in supine and sacral mob into L SB (due to hyper mobile L rotated or L inflared innominate). Progress therapeutic exercise for core/pelvic stabilization, issue HEP: clamshell and sitting hip IR strengthening. Pt to see MD 07/27/19 & will seek referral for SI belt. If pt brings in papers of SIJ belts she is interested in, review with pt the best SIJ belt for pt to purchase and make recommendations. When she has an SI Belt, teach pt proper donning of belt for compression at the L SIJ. Progress LE ROM and strengthening exercise (for weak hip IR and L knee flexion (S2), and decreased in hip ER mobility).
--- NOTE | 2019-08-13 08:38 | PT-OP ANOTE ---
Per voicemail and per phone conversation, the pt reports she is going to have surgery to stabilize her back (anterolesthesis) and is going to save her therapy appointments for after surgery. Surgery is planned this year. Pt requests discharge from therapy since surgery is planned.
--- NOTE | 2019-08-13 08:44 | PT.OPDS ---
Current Diagnoses Sacroiliitis, not elsewhere classified (07/23/19) Spinal instabilities, sacral and sacrococcygeal region (07/23/19) Radiculopathy, lumbar region (07/23/19) Visit Care Team Role Provider Type Laura Moran MD Attending Provider Physician Primary Care Provider Specialty: Family Practice Address: [address] [place] [address], [facility] Email: [email or web address] Visit Number Visit Number 8 Discharge Summary PT-OP-B Current Condition Start: 06/05/19 11:21 Freq: Status: Active Protocol: Document 06/05/19 11:55 LRN (Rec: 06/05/19 18:09 LRN [id number]) Current Condition History of Current Condition Onset Date 2002 Current Complaints Intermittent severe L low back pain at SIJ level History of Current Condition Pt reports in 2002 she was helping her spouse move a 100# boat battery when he suddenly dropped it, leaving her holding it with her R hand and standing primarily on her R LE. She felt immediate pain in the L low back and has had back pain since. At one time she was taking a lot of IBP and Tylenol for her pain and found some relief with IBP. She has since been placed on a therapeutic dose of IBP but the pt is worried about taking too many medications. She was told at one time while on a trip to [facility], by a [facility] doctor, that she needed surgery but was unable to afford it. She thinks the reason was because she had no disc space at L5-S1. She currently has intermittent L low back pain that she has learned to self manipulate, but is never sure when it will click out of place. Prior Treatments and Tests MRI & X-rays taken in [facility] MRI & X-rays @ [facility] 05/26/19 Future Testing and Treatments Planned Possible cortisone injection Treatment Goals Patient/Caregiver Goals Pt goal is to become painfree and learn how to manage her condition to prevent onset. Prior Functional Status Baseline Function- ADL's Independent Baseline Function- Mobility Independent Current Functional Impairments (Reported) Functional Limitations- ADL's Able to sit or lie on a soft surface for a very short period of time. Slow and cautious with movement. Personal Factors Other Personal Factors That May Effect Chronicity of condition Therapy/Recovery Depression PT-OP-T Assessment and Plan Start: 06/05/19 11:21 Freq: Status: Active Protocol: Document 08/13/19 08:40 LRN (Rec: 08/13/19 08:44 LRN [id number]) Physical Therapy Assessment Goals Four Impairment Low back pain rated 4/10 Short Term Goal (STG) Pt will experience pain no greater than 2/10 with walking or standing for a 2 or more week interval. Audit Consultant Goal (LTG) With activity pt will have L low back pain no greater than 1/10. LTG Duration 08/28/19 Three Impairment Pt unable to maintain pelvic stability at the L SIJ with transfers. Short Term Goal (STG) Pt will be able to stabilize the L SIJ with use of assistive device as necessary. STG Duration 06/26/19 Audit Consultant Goal (LTG) Pt will be able to move from supine <-> sit and sit <-> stand 75% of the time without clicking and a feeling of instability in the L SIJ. LTG Duration 08/28/19 Two Impairment Pt unable to tolerate sitting on soft surfaces for any length of time. Short Term Goal (STG) Pt will be educated in proper sit posture and compensatory measures to improve tolerance to sitting. STG Duration 06/12/19 Audit Consultant Goal (LTG) Pt will be able to tolerate sitting for 1 hour on various surfaces with compensatory measures used as needed. LTG Duration 08/28/19 One Impairment Pt lacks a self care HEP Audit Consultant Goal (LTG) Pt will be independent in a self care HEP to prevent onset of L LBP with activity and allow pt to manage her condition at a tolerable level . LTG Duration 08/28/19 Assessment Summary Assessment Pt is planning surgical intervention; therefore goals not met. Pt is being discharged early at pt request due to planned surgery. Physical Therapy Plan Discharge Physical Therapy Discharge Reasons No Longer Attending PT Discharge Comments Discharge per pt request due to planned surgery to stabilize her anterolesthesis.
== END 2019-10-02 10:49 ==
LOC: PHYS 09:00
PROVIDERS: PCP Family Medicine; Visit Provider Family Medicine
DX: M54.16 Radiculopathy, lumbar region (principal); M46.1 Sacroiliitis, not elsewhere classified; M53.2X8 Spinal instabilities, sacral and sacrococcygeal region
CPT/HCPCS: 97110; 97140; 97162; 97535

== ENCOUNTER → 2019-08-27 12:34 | Outpatient (CLI) | payer BC, SELFPAY ==
[2019-08-27 13:54] LABS: Hematocrit 42.9 % (36-46); Mean Corpuscular HGB Conc 32.7 % (30-36); Mean Corpuscular Hemoglobin 27.6 PG (26-34); Mean Corpuscular Volume 84.6 fL (80-100); Platelet Count 238 X10^3/uL (150-400); Red Blood Cell Count 5.07 X10^6/uL (4.0-5.2); Red Cell Distribution Width 12.9 % (11.6-14.8)
[2019-08-27 14:39] LABS: BUN Creatinine Ratio 14.4 (6-22); Blood Urea Nitrogen 13 mg/dL (7-17); Calcium 9.5 mg/dL (8.4-10.2); Carbon Dioxide 31 mmol/L (22-32); Chloride 98 mmol/L (98-107); Estimated Glomerular Filt Rate > 60.0 mL/min (>60); Glucose 99 mg/dL (70-100); HEMOLYSIS < 15 (0-50); Sodium 140 mmol/L (137-145)
== END ==
PROVIDERS: Family Provider Family Medicine; PCP Family Medicine; Visit Provider Orthopaedic Surgery Orthopaedic Surgery of the Spine
DX: Z01.818 Encounter for other preprocedural examination (principal)
CPT/HCPCS: 36415; 80048; 85027; 93005

== ENCOUNTER 2019-09-17 09:45 | Inpatient (IN) | payer BC, SELFPAY ==
[2019-09-11 08:55] VITALS: BMI 23.2
[2019-09-17] VITALS (16 sets, daily range): BP systolic 96–125; BP diastolic 57–81; PULSE 69–82; RESP 8–16; TEMP 36.3–36.8; O2SAT 92–100; BMI 23.2
--- NOTE | 2019-09-17 | DI.RAD.S_ITS ---
PROCEDURE: XR LUMBAR SPINE 2-3V INDICATIONS: L5-S1 TLIF TECHNIQUE: 2 views of the lumbar spine were acquired. COMPARISON: [facility], CR, XR LUMBAR SPINE 2-3V, 05/11/2019, 10:59. FINDINGS: 2 intraoperative fluoroscopy images demonstrate discectomy, laminectomy and posterior fusion at L5-S1. Pedicular screws and fusion rods expected position. A disc prosthesis is noted. IMPRESSION: Discectomy, laminectomy and posterior fusion at L5-S1. Dictated by: Felicia Shine M.D. on 09/17/2019 at 14:02 Approved by: Felicia Shine M.D. on 09/17/2019 at 14:04
--- NOTE | 2019-09-17 10:03 | PM.PREOP ---
Pre-operative Note Interval Note History & Physical reviewed/Exam performed by Physician: Yes Changes to H&P: No
[2019-09-17] MEDS: LACTATED RINGERS 1,000 ML 42 ML IV (10:18)
[2019-09-17] MEDS: CEFAZOLIN 2 GM/100 ML FROZ.PIGGY IV (10:48)
--- NOTE | 2019-09-17 11:02 | SUR.OPER ---
Prone on spine table, head in foam head support, padded chest and pelvic supports, gel pad at knees, lower legs supported by pillows; nipples, genitalia and toes free of pressure, arms secured on foam padded arm boards at <90 degrees abduction. Tape over blanket at thigh secured to table.
[2019-09-17] MEDS: BUPIVACAINE 0.25% W/ EPI 30 ML VIAL INJ (11:11)
[2019-09-17] MEDS: BUPIVACAINE LIPOSOME 266 MG/20 ML VIAL INJ (11:12)
--- NOTE | 2019-09-17 13:06 | PM.OP.1 ---
Operative Date/Time/Diagnoses Date of procedure: 09/17/19 Time of procedure: 11:06 Pre-op diagnosis: 1. L5-S1 spondylolisthesis 2. L5-S1 spinal stenosis Post-op diagnosis: same Procedure & Clinicians Procedure: 1. L5-S1 Postero-lateral and posterior interbody fusion 2. L5-S1 interbody cage placement. 3. L5-S1 decompressive laminectomy with bilateral facetecomies 4. L5-S1 Posterior non-segmental instrumentation 5. [place] of bone marrow from iliac crest 6. Utilization of microsurgical technique and operating microscope Same procedure as scheduled: Yes Indications: Patient has been having chronic back pain and worsening lumbar radiculopathy. Patient failed multiple conservative management with worsening pain weakness and numbness in her lower extremity. Patient has been having difficulty performing activity of daily living. After discussing risks benefits of treatment options, patient elected proceed with surgery. Surgeon: Hema Taylor Plant And Instrument Engineer: Yeni Redmond Click Yes if Unassisted: No Anesthesia Type: General Operative Notes Closure Type: primary Specimen(s): none sent Prosthetic devices, grafts, tissues, transplants, or devices: Globus revolve screws, Rise cage Procedure in detail: Patient was seen in the preoperative area. Risks and benefits of the surgery was discussed with the patient. Informed consent was obtained from the patient and placed in the chart. Surgical site was marked. Patient was taken to the operative room. General anesthesia was administered. Prophylactic antibiotic was given to the patient less than 30 min before the incision was made. Patient was placed into a prone position on the Cosmo table. Patient's back was then prepped and draped in the sterile fashion. Time-out was performed at this time. Using AP and lateral C-arm imaging the interval between L5-S1 was identified and marked on patient's back. A 2 inch incision 2 in from midline was made on the left side first. The fascia was incised in line with skin incision. Globus MARS retractors was placed inside the incision and docked onto the L5 lamina. Using microsurgical technique and operating microscope, a L5-S1 laminectomy and L5-S1 facetectomy was performed using a Kerrison rongeur. Patient was found have severe neural foramen stenosis which was fully decompressed after the laminectomy and facetectomy was completed. Patient was also found to have bilateral pars defect with gross instability at L5-S1 level warranting a fusion surgery. The disc space at L5-S1 was identified. And a total diskectomy was performed at L5-S1 level. The endplates were decorticated using a rasp and shaver. The total diskectomy and decortication was performed at L5-S1 level in order to to accomplish a L5-S1 fusion. The local bone from the laminectomy and facetectomy was saved for local bone grafting. After the total diskectomy and decortication was completed, Bio4 bone graft material was combined with local bone that was harvested earlier. At this time, a separate skin is incision was made over the iliac crest. A Jamshidi needle was inserted into the iliac crest through a separate skin incision. 5 cc of bone marrow aspiration was obtained through the separate skin incision using a Jamshidi needle from the iliac crest. The bone marrow aspiration was combined with local bone and the Bio4 bone grafting material. The bone grafting material was placed into the L5-S1 interbody space along with a expandable cage. The cage was expanded to its maximum height using the torque limiting screwdriver. At this time a mirror image incision was made on the right side. The fascia was incised in line with the skin incision. Globus MARS retractor was inserted and docked onto the L5-S1 posterolateral gutter. Using the power drill, posterior-lateral decortication was performed at L5-S1 level until bleeding cortical bone was identified. The remaining bone grafting material was placed into the L5-S1 posterior lateral gutter he order to accomplish posterolateral fusion at the L5-S1 level. Using the double C-arm technique, pedicle screws were placed into the L5-S1 pedicles bilaterally. This was done by placing the Jamshidi needle into the pedicles, then placing the guidewires over the Jamshidi needle, and finally placing the cannulated screws over the guidewires bilaterally. After the pedicle screws were placed, 2 titanium rods was locked into the heads of the pedicle screws using locking caps and torque limiting screwdriver. After all the hardware was placed, and confirmed with AP and lateral C-arm imaging, the wound was then irrigated with sterile normal saline and packed with Ray-Marcy gauze for 3 min to accomplish hemostasis. After the gauze was removed the deep fascia was closed with #1 Vicryl suture. The subcutaneous layer was closed with 2-0 Vicryl. The skin was closed with skin mukesh. Patient tolerated the procedure well. There were no complications. Complications: none Post-operative Condition: stable Disposition: PACU Plan for aftercare: Admit to inpatient hospital
--- NOTE | 2019-09-17 13:20 | SUR.PHASEI ---
Patient arrived via stretcher from OR. Patient appears comfortable. VSS.
[2019-09-17] MEDS: HYDROMORPHONE 2 MG INJ 0.5 MG IV (13:42)
[2019-09-17] MEDS: LORazepam 2 MG/ML INJ 0.25 MG IV (13:49)
--- NOTE | 2019-09-17 13:59 | SUR.PHASEI ---
Medicated for c/o pain. Repositioned. Applied ice pack.
[2019-09-17] MEDS: SODIUM CHLORIDE 0.9% 1,000 ML 100 ML IV (15:23)
[2019-09-17] MEDS: HYDROMORPHONE 1 MG INJ 0.5 MG IV (16:44)
--- NOTE | 2019-09-17 18:03 | PT-IP ANOTE ---
Pt is sleeping soundly. Woke her up but she stated she is feeling nauseated. Pt's at bedside answered questions for social hx and PLOF. Will reattempt PT tomorrow morning.
--- NOTE | 2019-09-17 18:07 | PC.NURSE ---
Addendum entered by Tara Talbert R.N. 09/17/19 23:33: @ 2230 bladder scan of 900 mL, lower abdomen distended; straight cath with 830 mL output clear, yellow Addendum entered by Tara Talbert R.N. 09/17/19 21:56: @1830 emesis X2; IV zofran Original Note: Patient is very somnolent, tolerating small sips of juice, ate 50% of dinner; pain assessed at 7/10 when awake, IV dilaudid; c/m/s to BLLEs present; pt's denies hx of numbness or pain to BLLEs; O2 97% RA; Drsg to lower back c/d/i; SCDs active; call light within reach
[2019-09-17] MEDS: ONDANSETRON 4 MG/2 ML INJ IV (18:41)
[2019-09-17] MEDS: CEFAZOLIN 1 GM/50 ML FROZ.PIGGY IV (18:52)
[2019-09-17] MEDS: DOCUSATE 100 MG CAPSULE PO (21:22)
[2019-09-17] MEDS: SENNOSIDES 8.6 MG TABLET 17.2 MG PO (21:22)
[2019-09-17] MEDS: OXYCODONE IR 5 MG TABLET 10 MG PO (23:45)
[2019-09-18] VITALS (7 sets, daily range): BP systolic 94–129; BP diastolic 47–74; PULSE 72–86; RESP 14–16; TEMP 36.6–37.2; O2SAT 98–100
--- NOTE | 2019-09-18 00:58 | PC.NURSE ---
Addendum entered by Shanon Maldonado R.N. 09/18/19 06:29: Able to sleep after last pain meds but now states pain is up to 5/10; medicated with Oxycodone and repositioned onto back. Declines ice pack. Addendum entered by Shanon Maldonado R.N. 09/18/19 03:14: Initially denied pain but then got up to [facility] and now states pain is 4/10 so requested/medicated with Oxycodone. Original Note: 0000 Patient assessed. Is alert and oriented. Breath sounds diminished but CTA with RA sat of 98%. HRR. Denies nausea at present time. BT present and states she is passing flatus. In/out cath done at end of previous shift as patient had not been able to void; will continue to monitor. Dressing to back is CDI. Is able to assist with turning. CMS is intact. Wearing bilateral foot SCD's. Complains of 5/10 neck and back pain; medicated with Oxycodone and repositioned onto right side but declined ice pack. Fall risk score is moderate; spouse rooming in.
[2019-09-18] MEDS: SODIUM CHLORIDE 0.9% 1,000 ML 100 ML IV (01:43)
[2019-09-18] MEDS: CEFAZOLIN 1 GM/50 ML FROZ.PIGGY IV (03:03)
[2019-09-18] MEDS: OXYCODONE IR 5 MG TABLET 10 MG PO ×4 (03:12→13:57)
[2019-09-18] MEDS: DOCUSATE 100 MG CAPSULE PO (08:34)
[2019-09-18] MEDS: ACETAMINOPHEN 325 MG TABLET 650 MG PO (08:34)
[2019-09-18] MEDS: hydrOXYzine pamoate 25 MG CAPSULE PO (08:34)
--- NOTE | 2019-09-18 11:33 | PT.IIE ---
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) Spondylolisthesis, lumbosacral region (09/17/19) Spinal stenosis, lumbar region without neurogenic claudication (09/17/19) Surgery Performed Operation Date: 09/17/19 11:15 Actual Procedures p L5-S1 TLIF w/ instrumentation(Not Applicable) - Hema Taylor MD Surgical History (Last Updated 09/11/19 @ 09:09 by Cassia Wilder, RN) History of section (Acute) Hx of plastic surgery (Acute ~2016) Medical History (Last Updated 09/11/19 @ 09:11 by Cassia Wilder RN) Anxiety (Acute) Back pain (Acute) Depression (Acute) Physical Therapy Inpatient Evaluation/Re-Eval M1 PT/OT-IP Prior Functional Status Start: 09/17/19 17:58 Freq: NEEDED Status: Active Protocol: Document 09/17/19 17:40 HH (Rec: 09/17/19 18:03 [id number]) Medical Review Prior Functional Status Medical History Reviewed Yes Diet/Fluid Consistency Regular Communication No deficits noted. Able to make needs known Mobility and Gait Pt's stated pt was very independent at baseline without using AD. She only has occasional severe back pain that will limit her mobility. She generally mobilize with cautions to minimize her back movements. Bending over activities tend to be difficult for her. Activities of Daily Living and IADL's Independent for both ADLs and IADLs without AD. Social History Household Members spouse,children Living Arrangements House Number of Floors (Floors) Two Floors Number of Stairs To Enter/Railing? 2 MARYANNE to front entrance/ garage entrance. No rails 12-14 steps to downstair basement Home Environment Standard Height Toilet,Walk in Shower,Tub/Shower Employment Status Unemployed Additional Social History Comment Pt lives in [place] with her and a 12 yo dtr. 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 Pt also has a 28yo dtr will stay with her to assist as needed for few days to a week. M2 PT-IP Current Condition Start: 09/17/19 17:58 Freq: NEEDED Status: Active Protocol: Document 09/18/19 09:25 HH (Rec: 09/18/19 11:33 [id number]) Physical Therapy Current Condition Current Condition Evaluation Date 09/18/19 Treatment Diagnosis L5-S1 TLIF, difficulty in walking, weakness Onset Date 09/17/19 Precautions Lumbar Precautions Log Roll,No Twisting,Limit Bending,Lifting Restriction of 10 lbs,Gait Belt above Incisional Area Weight Bearing Status Weight Bearing Status Full Weight Bearing M3 PT-IP Subjective Start: 09/17/19 17:58 Freq: NEEDED Status: Active Protocol: Document 09/18/19 09:25 (Rec: 09/18/19 11:33 [email or web address]) Subjective Physical Therapy Visit Type Type Initial Evaluation Visit Start Time 09:25 Visit Stop Time 10:00 Total Visit Minutes 35 Notes Pt's at bedside. Co-tx with SPT Juan Number of CONSUMER LOAN MANAGER Visits 0 Physical Therapy Visit Comments Patient Comments I am ready to move Patient Goals To return home wtih and daughter. Therapy Pain Assessment Pain Present Pain Present Pain Reported Location Back Intensity 4 Scale Used Numeric (1 - 10) Description Acute Pain Behaviors Calling Out Pain Management Techniques Distraction,Re-positioning, Timing of Activity with Medications M4 PT-IP Mobility and Gait Start: 09/17/19 17:58 Freq: NEEDED Status: Active Protocol: Document 09/18/19 09:25 (Rec: 09/18/19 11:33 [email or web address]) PT-Bed Mobility Assessment Rolling Type of Rolling Roll to Right Level of Assist Standby Assistance Supine to Sit Supine to Sit Standby Assistance Sit to Supine Sit to Supine Standby Assistance Scooting Scooting to Edge of Bed Standby Assistance Scooting Up and Down in Bed Standby Assistance PT-Transfer Assessment Sit to and From Stand Sit to and from Stand Contact Guard Assistance,Use of Upper Extremities Equipment Transfer Assistive Device None,Gait Belt,Front Wheeled Walker Orthotic/Prosthetic Devices or Brace: No Transfers Transfer Destination Bed,Chair Transfer Technique Stand Step Pivot Transfer Ability Level of Assist Standby Assistance,Contact Guard Assistance,Use of Upper Extremities Comments Mobility Comments BP pre mobility = 111/60, post mobility = 107/69. Pt was in chair who just finished breakfast. at bedside. Pt completed sit to stand slowly by keeping his back upright and used primarily her LEs to push off. She amb around the AC unit and returned to EOB. Pt did log roll perfectly for supine <> sit and stated it helps to relieve her discomfort. Gait Assessment Gait Gait Assistance Required: Standby Assistance,Contact Guard Assist Distance (Feet) 420 Able to Maintain Weight Bearing Status Yes During Gait Assistive Devices Assistive Device None,Gait Belt,Front Wheeled Walker Orthotic/Prosthetic Devices or Brace: No Gait Deviations General Gait Pattern Decreased Stride Length, Decreased Feet Clearance Factors Limiting Gait Function Factors Limiting Gait Function Decreased Activity Tolerance, Decreased Strength,Limited Range of Motion,Pain,Poor Balance Comments Gait Comments Pt amb from chair to end of AC unit with FWW SBA for ~250 feet. Pt was very steady and minimally used FWW during ambulation. She then amb back to her room without AD but CGA . Pt did not LOB and c/o discomfort. Her VSS remains stable. Stair Climbing Assessment Evaluation Level of Assist On Stairs Minimal Assistance,1 Person Assistance Devices Stair Climbing Assistive Devices None Technique/Endurance Stair Climbing Direction Ascend and Descend Stair Climbing Technique Step to Step Number of Steps Climbed 3 Query Text: Stair Climbing Set # Repetitions (reps) 2 Comments Stair Climbing Comments 3 steps with FIELD DIRECTOR on R side. assisted for 2nd set. Pt appears very steady and safe with step to pattern. PT-Balance Assessment Sitting Balance and Reactions Static Sitting Balance Ability Normal Dynamic Sitting Balance Ability Normal Standing Balance and Reactions Static Standing Balance Ability Normal Dynamic Standing Balance Ability Normal M5 PT-IP Objective Assessments Start: 09/17/19 17:58 Freq: NEEDED Status: Active Protocol: Document 09/18/19 09:25 (Rec: 09/18/19 11:33 [email or web address]) Orientation Orientation/Cognition Level of Alertness Alert Orientation Name,Age,Birthday,Month,Date, Year,Day of Week,Place, Situation Language Function Ability No Deficits Noted Safety Awareness Understands Safety Issues Memory Description No Deficits Noted Gross Range of Motion Upper Extremity ROM Assessment Within Functional Limits Lower Extremity ROM Assessment Within Functional Limits Strength Upper Extremity Strength Assessment Within Functional Limits Lower Extremity Strength Assessment Within Functional Limits Coordination Assessment Gross Coordination Gross Coordination WNL Sensation Assessment Sensation Gross Sensation WNL Muscle Tone Muscle Tone WNL Yes M6 PT-IP Treatment Start: 09/17/19 17:58 Freq: NEEDED Status: Active Protocol: Document 09/18/19 09:25 (Rec: 09/18/19 11:33 [email or web address]) Physical Therapy Treatment Education Education Provided Precautions,Weight Bearing Status,Post-Op Packet,Safety M7 PT-IP Assessment and Plan Start: 09/17/19 17:58 Freq: NEEDED Status: Active Protocol: Document 09/18/19 09:25 HH (Rec: 09/18/19 11:33 [email or web address]) PT Summary Assessment and Plan Potential Rehabilitation Potential Excellent Status of Condition at Evaluation Stable Summary Impairments Pain,ROM,Strength,Bed Mobility ,Transfers,Gait,Activity Tolerance Assessment Summary Pt is a low complexity who is POD #2 L5-S1 TLIF. Pt's at bedside attended CG training. Educated on post op precatuions and stair climbing with FIELD DIRECTOR on R side. Pt did very well for mobility assessment with SBA and FWW. CGA for no AD. Pt did log roll twice for supine<> sit. Pt's will acquire walker for pt this morning. Spoke to OT afterwards who stated pt had hypotension down to 90/ 40s after their session. Will cont to treat pt while pt is still in hospital until she is medically stable. Expect pt to be d/c home with and dtr assistance. Goals Bed Mobility Goal Standby Assistance Transfer Goal Standby Assistance,Front Wheeled Walker Gait Goal Standby Assistance,Front Wheel Walker Gait Distance 500 Other Goals 3STE without rail with FIELD DIRECTOR from CG Days to Meet Goals 3 Frequency of Treatment Frequency Of Treatment Twice a Day Treatment Plan Physical Therapy Treatment Plan Bed Mobility Training,Transfer Training,Gait Training, Therapeutic Exercise,Balance Retraining,Post Op Education, Discharge Planning, Neuromuscular Re-ed Other Recommendations and Next Treatment monitor VSS Focus mobility as benedicto wtih/ without AD Recommendations To Nursing Amount of Assist Needed Standby Assistance Discharge Recommendations PT Discharge Recommendations Home with Assistance Equipment Needed for Home Before Pt's will acquire FWW Discharge today./
--- NOTE | 2019-09-18 12:30 | OT.IP.EVAL ---
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) Spondylolisthesis, lumbosacral region (09/17/19) Spinal stenosis, lumbar region without neurogenic claudication (09/17/19) Surgery Performed Operation Date: 09/17/19 11:15 Actual Procedures p L5-S1 TLIF w/ instrumentation(Not Applicable) - Hema Taylor MD Past Medical History (Last Updated 09/11/19 @ 09:11 by Cassia Wilder, RN) Anxiety (Acute) Back pain (Acute) Depression (Acute) Surgical History (Last Updated 09/11/19 @ 09:09 by Cassia Wilder RN) History of section (Acute) Hx of plastic surgery (Acute ~2016) Occupational Therapy Inpatient Evaluation/Re-Eval M1 PT/OT-IP Prior Functional Status Start: 09/18/19 15:25 Freq: NEEDED Status: Active Protocol: Document 09/18/19 10:57 [facility] (Rec: 09/18/19 15:36 [facility] [email or web address]) Medical Review Prior Functional Status Medical History Reviewed Yes Diet/Fluid Consistency Regular Communication No deficits noted. Able to make needs known Mobility and Gait Pt's stated pt was very independent at baseline without using AD. She only has occasional severe back pain that will limit her mobility. She generally mobilize with cautions to minimize her back movements. Bending over activities tend to be difficult for her. Activities of Daily Living and IADL's Independent for both ADLs and IADLs without AD. Social History Household Members spouse,children Living Arrangements House Number of Floors (Floors) Two Floors Number of Stairs To Enter/Railing? 2 MARYANNE to front entrance/ garage entrance. No rails 12-14 steps to downstair basement Home Environment Standard Height Toilet,Walk in Shower,Tub/Shower Additional Social History Comment Pt lives in [place] with her and a 12 yo dtr. 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 Pt also has a 28yo dtr will stay with her to assist as needed for few days to a week. M2 OT-IP Current Condition Start: 09/18/19 15:25 Freq: Status: Active Protocol: Document 09/18/19 10:57 [facility] (Rec: 09/18/19 15:36 [facility] [email or web address]) Occupational Therapy Current Condition Current Condition Evaluation Date 09/18/19 Treatment Diagnosis S/p L5-S1 Lami and fusion, decreased mobility and self- care Diagnosis Onset Date 09/17/19 Post Operative Precautions Lumbar Precautions Log Roll,No Twisting,Limit Bending,Lifting Restriction of 10 lbs,Gait Belt above Incisional Area Weight Bearing Status Weight Bearing Status Weight Bear as Tolerated M3 OT- IP Subjective and Pain Start: 09/18/19 15:25 Freq: Status: Active Protocol: Document 09/18/19 10:57 [facility] (Rec: 09/18/19 15:36 [facility] [email or web address]) OT- Subjective Occupational Therapy Visit Type Type Initial Evaluation Visit Start Time 10:57 Visit Stop Time 11:20 Total Visit Minutes 23 Occupational Therapy Visit Comments Patient Comments Pt agreeable to do OT eval and wanting to get dressed. Patient/Caregiver Goals To go home. OT Pain Assessment Pain When Pain Assessed At Rest Pain Present Pain Present Pain Reported M4 OT- IP ADL's Start: 09/18/19 15:25 Freq: Status: Active Protocol: Document 09/18/19 10:57 [facility] (Rec: 09/18/19 15:36 [facility] [email or web address]) OT ADL-Dressing General Eval Upper Body Dressing Ability Independent Lower Body Dressing Ability Contact Guard Assistance, Maximum Assistance Areas Needing Assistance Pants/Shorts Comments OT Dressing Comments Pt educated on dressing weaker leg first, and after standing needing CGA to stand while able to pull up pants over his hips. OT ADL-Toileting Comments OT Toileting Comments Educated to stand to wipe and would be beneficial to get BSC as pt heavily relies on her arms to stand. OT ADL-Bathing Comments OT Bathing Comments Pt not wanting to shower at this time. Will benefit from shower chair and assist. M6 OT- IP Functional Cognition Start: 09/18/19 15:25 Freq: Status: Active Protocol: Document 09/18/19 10:57 [facility] (Rec: 09/18/19 15:36 [facility] [email or web address]) Cognitive Factors Limiting Selfcare Function Cognitive Ability Level of Alertness Alert Patient Orientation Name,Place,Situation Attention Span Ability Capable of Focused Attention, Capable of Sustained Attention Ability to Follow Commands Able to Follow One Step Commands Safety Awareness Decreased Recall of Precautions,Underestimates Need for Assistance Problem Solving Ability Needs Assist to Identify Solutions Cognitive Comments Cognitive Assessment Comments Pt not remembering all the back precautions. Pt still needing vc for safety of coming to stand as has a tending to straightening her back before getting her legs straight first. OT- Vision and Hearing OT- Hearing Assessment OT- Hearing Assessment WFL M7 OT- IP Mobility and Balance Start: 09/18/19 15:25 Freq: Status: Active Protocol: Document 09/18/19 10:57 [facility] (Rec: 09/18/19 15:36 [facility] [email or web address]) OT-Transfer Assessment Sit to and From Stand Sit to and from Stand Standby Assistance,Contact Guard Assistance OT- Balance Assessment Sitting Balance and Reactions Static Sitting Balance Ability Normal Dynamic Sitting Balance Ability Good Standing Balance and Reactions Static Standing Balance Ability Good M9 OT- IP Assessment and Plan Start: 09/18/19 15:25 Freq: Status: Active Protocol: Document 09/18/19 10:57 [facility] (Rec: 09/18/19 15:36 [facility] [email or web address]) OT Summary Assessment and Plan Potential Rehabilitation Potential Good Analytic Complexity at Evaluation Low Summary OT Impairments Pain,Balance,Functional Mobility,Dressing,Toileting, Bathing,Toilet Transfers, Shower Transfers Progress Towards Goals Progressing Toward Goals Assessment Summary Pt low complexity and at this time due to BLE weakness will need assist for all ADL, functional mobility and IAD needs. Pt's to assist for needs at home. Goals Dressing Goal Standby Assistance Toileting Goal Standby Assistance Bathing Goal Standby Assistance Toilet Transfer Goal Standby Assistance Days to Meet Goals 2 Frequency of Treatment Frequency Of Treatment Once a Day Treatment Plan OT Treatment Plan ADL Training,Functional Cognition Training,Functional Mobility,Patient/Family Education,Discharge Planning Other Treatment Recommendations and Next Shower if still here and Treatment Focus caregiver training. Discharge Recommendations OT Discharge Recommendations Home with Assistance Home Equipment Needs BSC, shower chair
--- NOTE | 2019-09-18 12:49 | PC.NURSE ---
Addendum entered by Tammy Delgado R.N. 09/18/19 14:47: Discharge prescriptions of PRN Vistaril and Oxycodone given to pt's Rene at 1445 with pt's permission to have filled at pharmacy prior to going home. Per CINDY Medrano around 1355 aware of recent BP of 94/60 and pulse 72. Verbal order to change low back dressing to Coversite prior to discharge. Original Note: Day Shift- Pt A&OX4, pt's Rene in room who roomed in over night. Able to make needs known using call light. Lower back gauze dressing CDI. CMS+. Pt reports 6/10 aching to lower back incision area and 3/10 to back of neck. Pain management plan discussed. PRN Vistaril given at 0835 with good effect. Pain to back lowered to 3-5/10. Pt OOB to BSC then to chair using walker and 1PA. Tolerated fair, did state feeling slightly dizzy. Reported by OT around 1020 pt's BP decreased to 80/51-92/61. Rechecked BP while pt sitting in chair at 1110 for 100/47 pulse 79, pt stated feeling slightly dizzy while sitting in recliner chair. Chair reclined back further, BLE elevated on blankets. Enc po fluids, avoid caffeine and juices for now. Reported to CINDY Medrano at 1128 of above pt's symptoms. Will see pt today. PT signed off on pt to go home. Will continue to monitor, no other voiced concerns at this time.
--- NOTE | 2019-09-18 14:02 | CM.IDA ---
Initial DCP Assessment Note: Pt is a 49 yo male, resident of [place]. Pt is POD#1 from spinal surgery w/ Dr Taylor. PCP: Dr Moran Payer: Out of State [facility] Reviewed chart. PT has cleared pt for return home w/family to assist when medically cleared. Pt has planned for home upon DC. Attempted assessment and pt working w/therapy. P: DC home expected in the next 24 hrs, family to assist, home via pov. CHANDRIKA Crooks Discharge Planning/Care Management CM Discharge Assessment Start: 09/18/19 14:00 Freq: Status: Active Protocol: Document 09/18/19 14:01 MELANIE (Rec: 09/18/19 14:02 MELANIE [id number]) Discharge Planning Assessment Assigned Head Of Strategy CHANDRIKA Simpson DPOA/Assigned Designee Name Rene () Contact Information [phone] Advance Directives? Yes Advance Directives on File No History Provided By Medical Record Prior Living Arrangements House Household Members spouse,children Type of transporation used prior to Drives own vehicle admit Independent with ADL's Yes Is patient alert and oriented? Yes Barriers to Discharge No Discharge Plan Home Transportation Arrangement Family Referrals Initiated None needed Review Status In Process
--- NOTE | 2019-09-18 14:13 | PM.DS.1 ---
History of Present Illness History of Present Illness Date Patient Seen: 09/18/19 Time Patient Seen: 14:13 Chief complaint: [id number] Narrative: Patient has been having chronic back pain and worsening lumbar radiculopathy. Patient failed multiple conservative management with worsening pain weakness and numbness in her lower extremity. Patient has been having difficulty performing activity of daily living. After discussing risks benefits of treatment options, patient elected proceed with surgery. POD #1 s/p L5-S1 TLIF with Dr. Taylor. Hospital course notable for hypotension and dizziness with PT/OT, most likely vasovagal. Most recent vitals were BP 94/60 and pulse 72. Patient was tired during discussion, just finished PT/OT sessions. Otherwise asymptomatic. Patient is drinking plenty of fluids and encouraged to continue. We discussed and agreed on lowering oxycodone dosage from 10mg to 5mg, increasing length of time between oyxcodone and vistaril doses. Discussed need to mobilize slowly and cautiously. Patient voiding without difficulty or assistance. Pain managed with oxycodone and tylenol. Muscle spasms managed with vistaril. Pt denies fever, chills, nausea, vomiting, chest pain, shortness of breath. Discharge Providers Provider Date of admission: 09/17/19 09:45 Discharge Date: 09/18/19 Primary care physician: Laura Moran MD Consults: 09/17/19 14:30 Consult to Occupational Therapy Evaluate & Treat Comment: Physician Instructions: Evaluate and treat Consult to Physical Therapy Evaluate & Treat Comment: Physician Instructions: Evaluate and Treat Discharge provider: Britt Guzman PA-C Summary Hospital Course Discharge Diagnosis: s/p L5-S1 TLIF anxiety back pain depression hypotension Hospital Course: Patient was admitted to hospital s/p L5-S1 TLIF with Dr. Taylor. Hospital course was notable for hypotension and dizziness when ambulating with PT/OT. Changed prescription for oxycodone to 5mg and discussed increasing time interval between doses (oxycodone, vistaril). Encouraged patient to be cautious and move slowly. POD#1 patient ready for discharge home with assistance from spouse. Patient was ambulating with PT prior to discharge. Patient was eating and voiding without difficulty or assistance prior to discharge. Prescribed oxycodone, vistaril and tylenol for home. Dressing was changed prior to discharge, CDI. Status at Discharge Cognitive/behavioral status at discharge: oriented Functional status at discharge: uses cane/walker Overall status at discharge: patient is progressing back to baseline Time Spent with Patient Time spent: Less than 30 minutes Exam Vital Signs (past 8 hours): - 09/18/19 08:46 09/18/19 11:13 09/18/19 13:28 Temperature 98.1 F 99.0 F Pulse Rate 77 79 Respiratory Rate 14 Blood Pressure 98/63 100/47 L Pulse Oximetry 100 Oxygen Delivery Method Room Air Oxygen Flow Rate 0 Narrative Exam Narrative: 49 year old female is lying comfortably in chair, in no apparent distress. A&Ox3. Dressing intact, in place, w shadow drainage. Sensory function grossly intact to light touch in LE bl. Dorsalis pedis 2+ bl. Capillary refill <2sec. Calves warm, soft, compressible, nttp. Patient able to actively dorsiflex/plantar flex bl. Discharge Plan Discharge Plan Patient Disposition: Home Discharge Med Rec/Prescriptions Prescriptions: New hydroxyzine pamoate [Vistaril] 25 mg capsule 25 mg PO Q6H PRN (Reason: muscle spasms) Qty: 40 RF: 0 oxycodone 5 mg tablet 5 mg PO Q4-6H PRN (Reason: pain) Qty: 40 RF: 0 acetaminophen [Tylenol Extra Strength] 500 mg tablet 500 mg PO Q4H PRN (Reason: pain) Qty: 40 RF: 0 Continued meloxicam 7.5 mg Tablet 7.5 mg PO DAILY PRN (Reason: Pain) RF: 0 Discontinued hydroxyzine HCl 25 mg Tablet 25 mg PO BEDTIME PRN (Reason: Anxiety, sleep) RF: 0 Follow up/Referrals: Hema Taylor MD [Physician] - Laura Moran MD [Primary Care Provider] - Provider Discharge Instructions Diet: Regular Activity: no excessive bending, twisting, lifting for 6 weeks Cold/Heat Therapy: continue cold/heat therapy as needed Other treatments: No nsaids Skin/Wound/Dressing Care Report to your healthcare provider any signs of infection, such as:: chills, fever, increased pain, unusual drainage and unusual redness Dressing: keep dressing dry, if saturated contact the office Visit Report/Discharge Packet Instructions: DI for Transforaminal Lumbar Interbody Fusion Stand Alone Forms: Surgery Discharge Discharge Data Primary Care Provider: Laura Moran Discharges patient from system. Discharge Date/Time: 09/18/19 18:07
--- NOTE | 2019-09-18 14:47 | PT-IP ANOTE ---
JAQUELINE Munoz and family were in the pt's room preparing for pt's d/c. RN stated she is medically stable and PA recommended her to mobilize slowly and cautiously with family. D/C from PT
--- NOTE | 2019-09-18 18:04 | PC.NURSE ---
Pt discharged in the care of her spouse, and by wheelchair to private car. Patient and spouse state they understand the discharge instructions and followup care. Dressing was changed and both incisions were pale and free from drainage. Pt has all of her belongings and left stating she only had mild pain, no N/V.
== END 2019-09-18 18:07 | disposition home or self-care (01) | DRG 455 ==
PROVIDERS: Admitting Provider Orthopaedic Surgery Orthopaedic Surgery of the Spine; Family Provider Family Medicine; PCP Family Medicine; Visit Provider Orthopaedic Surgery Orthopaedic Surgery of the Spine
PROC: 0SG30AJ Fusion of Lumbosacral Joint with Interbody Fusion Device, Posterior Approach, Anterior Column, Open Approach (ICD-10-PCS; principal; 2019-09-17 11:15)
DX: M48.07 Spinal stenosis, lumbosacral region (principal); M48.061 Spinal stenosis, lumbar region without neurogenic claudication; M43.17 Spondylolisthesis, lumbosacral region; X50.0XXD Overexertion from strenuous movement or load, subsequent encounter
CPT/HCPCS: 72100; 76000; 97116; 97161; 97165; 97530; C1776; C9290; J0330; J0690; J1100; J1170; J2060; J2405; J2704; J3010

== ENCOUNTER 2020-01-08 09:00 | Outpatient (RCR) | payer BC, SELFPAY ==
[2019-09-17 14:35] VITALS: BMI 23.2
--- NOTE | 2019-11-02 11:28 | PT.OIE ---
Past Medical History (Last Updated 09/11/19 @ 09:11 by Cassia Wilder RN) Anxiety (Acute) Back pain (Acute) Depression (Acute) Past Surgical History (Last Updated 09/11/19 @ 09:09 by Cassia Wilder RN) History of section (Acute) Hx of plastic surgery (Acute ~2016) Visit Care Team Role Provider Type Laura Moran MD Family Provider Physician Primary Care Provider Specialty: Family Practice Address: [address] [place] [address], [facility] [place], [address] Email: [email or web address] Taylor MD Attending Provider Physician Specialty: Orthopedic Surgery Address: [address] [place] [address], [place], [address] Email: [email or web address] Physical Therapy Initial Evaluation PT-OP-A Visit Information Start: 11/02/19 11:26 Freq: Status: Active Protocol: Document 11/02/19 11:28 LRN (Rec: 11/02/19 12:48 LRN [id number]) Out-Patient Physical Therapy Visit Information Visit Information Visit Type Initial Evaluation Visit Start Time 11:28 Visit Stop Time 12:15 Total Visit Minutes 47 Visit Number 1 Number of TIP OUT WORKER Visits 0 Evaluation Information Evaluation Date 11/02/19 Precautions Precautions 09/17/19 Surgery: L5-S1 Postero-lateral & posterior interbody fusion, interbody cage placement, decompressive laminectomy w/bilateral facetecomies, posterior non- segmental instrumentation. [place] of bone marrow form iliac crest. Pt managing muscle spasm and pain with Hydroxyzine & Gabapentin. PT-OP-B Current Condition Start: 11/02/19 11:26 Freq: Status: Active Protocol: Document 11/02/19 11:28 LRN (Rec: 11/02/19 12:48 LRN [id number]) Current Condition History of Current Condition Onset Date 09/17/19 Current Complaints Pain is daily, sudden, occasional sharp pain. History of Current Condition 6 weeks post operative L5-S1 surgery. Pt reports pain is the same as before surgery. States she can't find relief of pain with stretching like she used to. Pain is in the spine with sitting, feels a pinching. She states she is taking nerve medicine and that she was told recovery might take 6 months. When sleeping on the L side she gets numbness and pain from her L greater trochanter to the lateral thigh. Sometimes she presses a tennis ball on her lateral hip to make it feel better. She has been trying to keep her hamstrings flexible so it won't pull on the back. She reports doing stretches daily what she was doing before surgery. Developmental History Developmental History Prior to surgery the pt had intermittent severe L low back pain at SIJ level that did not fully resolve with physical therapy. Treatment Goals Patient/Caregiver Goals Pt's goal is to get rid of the L LB & hip pain. She would like to be able to bend over, touch her knees, do exercise, walk, and shop as exercise. Prior Functional Status Baseline Function- ADL's Independent Baseline Function- Mobility Independent Baseline Function- Work/School Walked 10,000 steps per day Baseline Function- Other Couldn't sit longer than 10-15 ' & couldn't sit on soft chair . Current Functional Impairments (Reported) Functional Limitations- ADL's Not able to walk any length without L LBP & hip pain. Not able to vacuum, lift, bend and picket labor union things, can't exercise because can't twist. Cooks but can't lift things. Can't wash leg, has to use long handle scrub. Difficulty carrying her table lamp. Functional Limitations- Mobility/Gait Not able to walking for exercise. Functional Limitations- Other Able to sit for an hour, but sometimes has random sharp pain. Personal Factors Other Personal Factors That May Effect Not able to work at this time. Therapy/Recovery Self employeed with spouse. Has two children, ages 28 and 13. History of depression. PT-OP-C Subjective Start: 11/02/19 11:26 Freq: Status: Active Protocol: Document 11/02/19 11:28 LRN (Rec: 11/03/19 08:36 LRN [id number]) Patient Questionnaires Oswestry Low Back Index Oswestry Score 23 Oswestry Impairment 20 to 39% Impaired (Score 20- 39) OP-PT Pain Assessment Location Back Description Sharp,Shooting Other Pain Aggravating Factors Randomly happens. Left Lower Back Pain Location Details L low back Intensity 4 Scale Used Numeric (1 - 10) Description Aching,Sharp,Shooting Frequency Intermittent Other Pain Aggravating Factors Pain randomly occurs. Pain Alleviating Factors Medication Home Pain Medication Use Pain Medications Used Yes Home Pain Medication Frequency Gabapentin & Hydroxyzine (ms spasms) Pain Behaviors Pain Behaviors Restlessness PT-OP-F Manual Assessment Start: 11/02/19 11:26 Freq: Status: Active Protocol: Document 11/02/19 11:28 LRN (Rec: 11/03/19 08:55 LRN [id number]) Manual Assessments Soft Tissue Assessment Soft Tissue Mobility Assessment Decreased soft tissue mobility of the lumbar paraspinals, sacral region, and along well healed scar. Muscle guarding of posterior hip muscles R>L. PT-OP-G Mobility & Gait Start: 11/02/19 11:26 Freq: Status: Active Protocol: Document 11/02/19 11:28 LRN (Rec: 11/03/19 08:55 LRN [id number]) OP Mobility Evaluation Bed Mobility Supine to and from Sit Good log roll technique sit > Supine. Supine > Sit: Pt tried coming to sit with feet still on the plinth. Transfers Sit to Stand Good body mechanics PT-OP-H Neuro Start: 11/02/19 11:26 Freq: Status: Active Protocol: Document 11/02/19 11:28 LRN (Rec: 11/03/19 08:55 LRN [id number]) Sensation Evaluation Gross Sensation Gross Sensation WNL Deep Tendon Reflex & Clonus Assessment Deep Tendon Reflex Bilateral Achilles Deep Tendon Reflex 2+ Normal Bilateral Patellar Deep Tendon Reflex 3+ Normal But Brisk PT-OP-J Posture/Palpation/Skin Start: 11/02/19 11:26 Freq: Status: Active Protocol: Document 11/02/19 11:28 LRN (Rec: 11/03/19 08:55 LRN [id number]) Posture Evaluation Position Standing Evaluation View All positions Knee Posture (L) Genu Recurvatum,(R) Genu Recurvatum Foot Arch (L) Low Arch,(R) No Arch Palpation Assessment Location Lumbar Palpation Location Lower lumbar region Palpation Findings Edema Palpation Details Increased temperature. Sacrum Palpation Location Sacral region Palpation Findings Edema Palpation Details Increased temperature. Skin Assessment Incisional Assessment Incision Appearance/Comments Well healed scar with decreased tissue mobility. PT-OP-K Range of Motion Start: 11/02/19 11:26 Freq: Status: Active Protocol: Document 11/02/19 11:28 LRN (Rec: 11/02/19 12:48 LRN [id number]) Lumbar Spine Range of Motion Lumbar Spine Active Degrees Testing Position Standing Flexion 25 ROM Limitations Soft Tissue Tightness,Pain Comments Post op instructions: No excessive bending, twisting, lifting for 6 weeks. Sitting trunk rotation: 43 degs Right, 52 degs Left. Hip Goniometric Range of Motion Hip Right Passive Testing Position Supine Straight Leg Raise 85 Abduction 45 Internal Rotation 40 External Rotation 50 Left Passive Testing Position Supine Straight Leg Raise 85 Abduction 45 Internal Rotation 50 External Rotation 65 PT-OP-M Strength Start: 11/02/19 11:26 Freq: Status: Active Protocol: Document 11/02/19 11:28 LRN (Rec: 11/02/19 12:48 LRN [id number]) Trunk Strength Trunk Manual Muscle Testing Reason Not Measured Pain Comments 6 weeks post surgical. Hip Strength Hip Manual Muscle Testing Right Flexion (L2) 3+ Fair+ Abduction 5 Normal Adduction 3 Fair External Rotation 5 Normal Internal Rotation 4 Good Comments Pain in L LB with MMT of hip AD Left Flexion (L2) 5 Normal Abduction 3 Fair Adduction 3- Fair- External Rotation 3+ Fair+ Internal Rotation 5 Normal PT-OP-Q Treatments Start: 11/02/19 11:26 Freq: Status: Active Protocol: Document 11/02/19 11:28 LRN (Rec: 11/02/19 12:48 LRN [id number]) Manual Therapy Treatment Soft Tissue Mobilization Low back Body Location Low back and well healed incisions Mobilization Type Myofascial Release Intensity/Depth Superficial Body Position Prone Comments Restricted skin mobility generally. Self-Care/Home Management Treatment Education Patient Education Body Mechanics,Pain Management ,Posture Other Education Educated pt in use of wall to help with proper posturing. Activities Self-Care/Home Management Activities Reviewed proper body mechanics for transfer supine <-> stand . Discussed precautions of forced bending, I/S pt to avoid rotation of lumbar spine and to be protective for a couple weeks, encouraging functional movements. PT-OP-T Assessment and Plan Start: 11/02/19 11:26 Freq: Status: Active Protocol: Document 11/02/19 11:28 LRN (Rec: 11/02/19 12:48 LRN [id number]) Physical Therapy Assessment Rehab Potential Rehabilitation Potential Good Evaluation Complexity Number of Personal Factors/Comorbidities 3 or More Number of Body Systems Impaired 4 or More Clinical Presentation at Evaluation Evolving Impairments Impairments Activity Tolerance,Edema, Functional Activities, Functional Mobility,Pain, Posture,ROM,Soft Tissue Mobility,Strength Goals Five Impairment Decreased hip mobility with difficulty bending & dressing. Short Term Goal (STG) Pt will be able to bend over in sitting and touch her knees to put lotion on her thighs without pain. STG Duration 12/04/19 Aircraft Powertrain Repairer Goal (LTG) Pt will be able to bend over to don/doff her pants and socks without minimal difficulty and pain no greater than 1/10. LTG Duration 01/31/20 Four Impairment Decreased lumbar mobility limiting ability picket labor union objects off the floor. Aircraft Powertrain Repairer Goal (LTG) Pt will be able to bend over to picket labor union light objects off the floor without difficulty. LTG Duration 12/04/19 Three Impairment Pt L LBP limiting ability to exercise Short Term Goal (STG) Pt will be able to start a light low level, LE strengthening program without weights. STG Duration 12/04/19 Aircraft Powertrain Repairer Goal (LTG) Pt will be able to start an independent exercise program of light hand and leg weights for UE/LE strengthening. LTG Duration 01/15/19 Two Impairment Daily LBP rated 4/10, sometimes sharp in nature limiting walking. Short Term Goal (STG) Decrease LBP at rest to 0/10 without onset of sharp pains. STG Duration 12/04/19 Aircraft Powertrain Repairer Goal (LTG) Pt will be able to walking the grocery store for shopping with pain no greater than 1/10 . LTG Duration 01/31/20 One Impairment Pt lacks a self care HEP Long-Term Goal (LTG) Pt will be independent in a self care HEP to minimize back pain and allow pt to manage her condition at a tolerable level. LTG Duration 01/31/20 Assessment Summary Assessment Pt is 6 weeks post operative L5-S1 back surgery for a L5-S1 spondylolisthesis and spnal stenosis. Pt had [place] of bone marrow from iliac crest. Today she presents with edema in the surgical region of the back hindering the pt's ability to lie supine due to pain. She is very limited in trunk mobility due to pain; therefore is limited in her functional abilities. She notes her L LBP and hip pain are similar to her pre-surgery condition and is anxious for improvement to be felt. The pt is very upset over her pain and has indicated thoughts of self harm if she doesn't get better. The pt is also limited in hip mobility and strength along with her back. The pt is quite anxious and may need a psychological referral to help her deal with her pain. The pt will benefit from skilled physical therapy to decrease swelling & pain, improve trunk and hip mobility and strength, and to progress the pt towards her prior level of active function . Physical Therapy Plan Frequency and Duration Frequency of Treatment 2x/Week Plan of Care Start Date 11/02/19 Plan of Care End Date 01/31/20 Therapeutic Interventions Therapeutic Interventions Aquatic Therapy,Gait Training, Home Exercise Program,Joint Mobilizations,Manual Therapy, Neuromuscular Re-education, Patient/Caregiver Education, Self-Care/Home Management,Soft Tissue Mobilization,Taping, Therapeutic Activities, Therapeutic Exercises Modalities Cold Pack/Ice Massage,Hot Packs Other Referrals/Consults Referrals/Consults Recommended Psychological Evaluation Next Visit Focus/Plan Next Note Type Treatment Note Next Visit Plan Initiation of 6 weeks post op gentle hip/trunk ROM, Surgical MFR and STM to decrease scar tissue and adhesions, K-tape for improving skin mobility. Initiate gentle exercise program of UBE, TM or eliptical. End with cryotherpy.
--- NOTE | 2019-11-09 18:15 | PT.OTN ---
Physical Therapy Treatment Note PT-OP-A Visit Information Start: 11/02/19 11:26 Freq: Status: Active Protocol: Document 11/09/19 09:56 LRN (Rec: 11/09/19 10:36 LRN [id number]) Out-Patient Physical Therapy Visit Information Visit Information Visit Type Treatment Note Visit Start Time 09:56 Visit Stop Time 10:49 Total Visit Minutes 53 Visit Number 2 Number of SOFTWARE VERIFICATION ENGINEER Visits 0 Evaluation Information Evaluation Date 11/02/19 Precautions Precautions 09/17/19 Surgery: L5-S1 Postero-lateral & posterior interbody fusion, interbody cage placement, decompressive laminectomy w/bilateral facetecomies, posterior non- segmental instrumentation. [place] of bone marrow form iliac crest. Pt managing muscle spasm and pain with Hydroxyzine & Gabapentin. PT-OP-B Current Condition Start: 11/02/19 11:26 Freq: Status: Active Protocol: Document 11/02/19 11:28 LRN (Rec: 11/02/19 12:48 LRN [id number]) Current Condition History of Current Condition Onset Date 09/17/19 Current Complaints Pain is daily, sudden, occasional sharp pain. History of Current Condition 6 weeks post operative L5-S1 surgery. Pt reports pain is the same as before surgery. States she can't find relief of pain with stretching like she used to. Pain is in the spine with sitting, feels a pinching. She states she is taking nerve medicine and that she was told recovery might take 6 months. When sleeping on the L side she gets numbness and pain from her L greater trochanter to the lateral thigh. Sometimes she presses a tennis ball on her lateral hip to make it feel better. She has been trying to keep her hamstrings flexible so it won't pull on the back. She reports doing stretches daily what she was doing before surgery. Developmental History Developmental History Prior to surgery the pt had intermittent severe L low back pain at SIJ level that did not fully resolve with physical therapy. Treatment Goals Patient/Caregiver Goals Pt's goal is to get rid of the L LB & hip pain. She would like to be able to bend over, touch her knees, do exercise, walk, and shop as exercise. Prior Functional Status Baseline Function- ADL's Independent Baseline Function- Mobility Independent Baseline Function- Work/School Walked 10,000 steps per day Baseline Function- Other Couldn't sit longer than 10-15 ' & couldn't sit on soft chair . Current Functional Impairments (Reported) Functional Limitations- ADL's Not able to walk any length without L LBP & hip pain. Not able to vacuum, lift, bend and diamond picker things, can't exercise because can't twist. Cooks but can't lift things. Can't wash leg, has to use long handle scrub. Difficulty carrying her table lamp. Functional Limitations- Mobility/Gait Not able to walking for exercise. Functional Limitations- Other Able to sit for an hour, but sometimes has random sharp pain. Personal Factors Other Personal Factors That May Effect Not able to work at this time. Therapy/Recovery Self employeed with spouse. Has two children, ages 28 and 13. History of depression. PT-OP-C Subjective Start: 11/02/19 11:26 Freq: Status: Active Protocol: Document 11/09/19 09:56 LRN (Rec: 11/09/19 10:36 LRN [id number]) OP-PT Subjective Patient Comments Patient Comments Stopped taking the nerve pain and had part of day where there was pain everywhere, so took the medication and the pain went away. Also noted one day when she didn't take her medication that a clinching/tightening of buttock made the pain go away and she heard clicks and she felt light. States she is getting more rest. Last night slept okay, didn't wake up. PT-OP-F Manual Assessment Start: 11/02/19 11:26 Freq: Status: Active Protocol: Document 11/02/19 11:28 LRN (Rec: 11/03/19 08:55 LRN [id number]) Manual Assessments Soft Tissue Assessment Soft Tissue Mobility Assessment Decreased soft tissue mobility of the lumbar paraspinals, sacral region, and along well healed scar. Muscle guarding of posterior hip muscles R>L. PT-OP-G Mobility & Gait Start: 11/02/19 11:26 Freq: Status: Active Protocol: Document 11/02/19 11:28 LRN (Rec: 11/03/19 08:55 LRN [id number]) OP Mobility Evaluation Bed Mobility Supine to and from Sit Good log roll technique sit > Supine. Supine > Sit: Pt tried coming to sit with feet still on the plinth. Transfers Sit to Stand Good body mechanics PT-OP-H Neuro Start: 11/02/19 11:26 Freq: Status: Active Protocol: Document 11/02/19 11:28 LRN (Rec: 11/03/19 08:55 LRN [id number]) Sensation Evaluation Gross Sensation Gross Sensation WNL Deep Tendon Reflex & Clonus Assessment Deep Tendon Reflex Bilateral Achilles Deep Tendon Reflex 2+ Normal Bilateral Patellar Deep Tendon Reflex 3+ Normal But Brisk PT-OP-J Posture/Palpation/Skin Start: 11/02/19 11:26 Freq: Status: Active Protocol: Document 11/02/19 11:28 LRN (Rec: 11/03/19 08:55 LRN [id number]) Posture Evaluation Position Standing Evaluation View All positions Knee Posture (L) Genu Recurvatum,(R) Genu Recurvatum Foot Arch (L) Low Arch,(R) No Arch Palpation Assessment Location Lumbar Palpation Location Lower lumbar region Palpation Findings Edema Palpation Details Increased temperature. Sacrum Palpation Location Sacral region Palpation Findings Edema Palpation Details Increased temperature. Skin Assessment Incisional Assessment Incision Appearance/Comments Well healed scar with decreased tissue mobility. PT-OP-K Range of Motion Start: 11/02/19 11:26 Freq: Status: Active Protocol: Document 11/02/19 11:28 LRN (Rec: 11/02/19 12:48 LRN [id number]) Lumbar Spine Range of Motion Lumbar Spine Active Degrees Testing Position Standing Flexion 25 ROM Limitations Soft Tissue Tightness,Pain Comments Post op instructions: No excessive bending, twisting, lifting for 6 weeks. Sitting trunk rotation: 43 degs Right, 52 degs Left. Hip Goniometric Range of Motion Hip Right Passive Testing Position Supine Straight Leg Raise 85 Abduction 45 Internal Rotation 40 External Rotation 50 Left Passive Testing Position Supine Straight Leg Raise 85 Abduction 45 Internal Rotation 50 External Rotation 65 PT-OP-M Strength Start: 11/02/19 11:26 Freq: Status: Active Protocol: Document 11/02/19 11:28 LRN (Rec: 11/02/19 12:48 LRN [id number]) Trunk Strength Trunk Manual Muscle Testing Reason Not Measured Pain Comments 6 weeks post surgical. Hip Strength Hip Manual Muscle Testing Right Flexion (L2) 3+ Fair+ Abduction 5 Normal Adduction 3 Fair External Rotation 5 Normal Internal Rotation 4 Good Comments Pain in L LB with MMT of hip AD Left Flexion (L2) 5 Normal Abduction 3 Fair Adduction 3- Fair- External Rotation 3+ Fair+ Internal Rotation 5 Normal PT-OP-Q Treatments Start: 11/02/19 11:26 Freq: Status: Active Protocol: Document 11/09/19 09:56 LRN (Rec: 11/09/19 10:36 LRN [id number]) Cardio Equipment Upper Body Ergometer (UBE) Duration (Minutes) 6 RPM 70 Seat Position 3 Other Gentle ROM ex Therapeutic Exercises Supine Exercises Warm up routine Supine Exercise Name Buzz Trunk rot, BKFO, SLR, QS, ankle DF Reps/Minutes 2-3x each Comments 4' Bridge Supine Exercise Name Segmental slow rise and slow lower Reps/Minutes 4' Sidelying Exercises Upper trunk rot Sidelying Exercise Name Upper trunk rot Side bilateral Manual Therapy Treatment Soft Tissue Mobilization Low back Body Location Low back and well healed incisions Mobilization Type Myofascial Release Intensity/Depth Superficial Body Position Prone Comments Restricted skin mobility generally. PT-OP-R Modalities Start: 11/02/19 11:26 Freq: Status: Active Protocol: Document 11/09/19 09:56 LRN (Rec: 11/09/19 18:14 LRN [id number]) Hot Pack/Cold Pack Treatment Cold Pack Location Low Back Patient Position Supine Treatment Duration (minutes) 10 Patient Tolerance Good PT-OP-T Assessment and Plan Start: 11/02/19 11:26 Freq: Status: Active Protocol: Document 11/09/19 09:56 LRN (Rec: 11/09/19 10:36 LRN [id number]) Physical Therapy Assessment Goals Five Impairment Decreased hip mobility with difficulty bending & dressing. Short Term Goal (STG) Pt will be able to bend over in sitting and touch her knees to put lotion on her thighs without pain. STG Duration 12/04/19 Pattern Generator Operator Goal (LTG) Pt will be able to bend over to don/doff her pants and socks without minimal difficulty and pain no greater than 1/10. LTG Duration 01/31/20 Four Impairment Decreased lumbar mobility limiting ability diamond picker objects off the floor. Pattern Generator Operator Goal (LTG) Pt will be able to bend over to diamond picker light objects off the floor without difficulty. LTG Duration 12/04/19 Three Impairment Pt L LBP limiting ability to exercise Short Term Goal (STG) Pt will be able to start a light low level, LE strengthening program without weights. STG Duration 12/04/19 Usp Goal (LTG) Pt will be able to start an independent exercise program of light hand and leg weights for UE/LE strengthening. LTG Duration 01/15/19 Two Impairment Daily LBP rated 4/10, sometimes sharp in nature limiting walking. Short Term Goal (STG) Decrease LBP at rest to 0/10 without onset of sharp pains. STG Duration 12/04/19 Pattern Generator Operator Goal (LTG) Pt will be able to walking the grocery store for shopping with pain no greater than 1/10 . LTG Duration 01/31/20 One Impairment Pt lacks a self care HEP Pattern Generator Operator Goal (LTG) Pt will be independent in a self care HEP to minimize back pain and allow pt to manage her condition at a tolerable level. LTG Duration 01/31/20 Assessment Summary Assessment Pt is ~7 weeks postop L5-S1 back surgery for a L5-S1 spondylolisthesis and spnal stenosis. Pt soft tissue mobility improved after treatment but is still very restricted. Her tissue temperature is increased in the low back; therefore she need to ice more at home. Pt appears better with periods of comfort. She describes self mobilization of the spine with lessening of pain overall. Pt has very good awareness of body posturing and body movement. Physical Therapy Plan Frequency and Duration Frequency of Treatment 2x/Week Plan of Care Start Date 11/02/19 Plan of Care End Date 01/31/20 Next Visit Focus/Plan Next Note Type Treatment Note Next Visit Plan Cont 6 weeks post op gentle hip/trunk ROM, Surgical MFR and STM to decrease scar tissue and adhesions, ?K-tape for improving skin mobility. Cont gentle exercise program of UBE, TM or eliptical. End with cryotherpy.
--- NOTE | 2019-11-12 13:07 | PT.OTN ---
Physical Therapy Treatment Note PT-OP-A Visit Information Start: 11/02/19 11:26 Freq: Status: Active Protocol: Document 11/12/19 10:07 LRN (Rec: 11/12/19 10:59 LRN [id number]) Out-Patient Physical Therapy Visit Information Visit Information Visit Type Treatment Note Visit Start Time 10:07 Visit Stop Time 10:55 Total Visit Minutes 48 Visit Number 3 Number of SWITCH CLEANER Visits 0 Evaluation Information Evaluation Date 11/02/19 Precautions Precautions 09/17/19 Surgery: L5-S1 Postero-lateral & posterior interbody fusion, interbody cage placement, decompressive laminectomy w/bilateral facetecomies, posterior non- segmental instrumentation. [place] of bone marrow form iliac crest. Pt managing muscle spasm and pain with Hydroxyzine & Gabapentin. PT-OP-B Current Condition Start: 11/02/19 11:26 Freq: Status: Active Protocol: Document 11/02/19 11:28 LRN (Rec: 11/02/19 12:48 LRN [id number]) Current Condition History of Current Condition Onset Date 09/17/19 Current Complaints Pain is daily, sudden, occasional sharp pain. History of Current Condition 6 weeks post operative L5-S1 surgery. Pt reports pain is the same as before surgery. States she can't find relief of pain with stretching like she used to. Pain is in the spine with sitting, feels a pinching. She states she is taking nerve medicine and that she was told recovery might take 6 months. When sleeping on the L side she gets numbness and pain from her L greater trochanter to the lateral thigh. Sometimes she presses a tennis ball on her lateral hip to make it feel better. She has been trying to keep her hamstrings flexible so it won't pull on the back. She reports doing stretches daily what she was doing before surgery. Developmental History Developmental History Prior to surgery the pt had intermittent severe L low back pain at SIJ level that did not fully resolve with physical therapy. Treatment Goals Patient/Caregiver Goals Pt's goal is to get rid of the L LB & hip pain. She would like to be able to bend over, touch her knees, do exercise, walk, and shop as exercise. Prior Functional Status Baseline Function- ADL's Independent Baseline Function- Mobility Independent Baseline Function- Work/School Walked 10,000 steps per day Baseline Function- Other Couldn't sit longer than 10-15 ' & couldn't sit on soft chair . Current Functional Impairments (Reported) Functional Limitations- ADL's Not able to walk any length without L LBP & hip pain. Not able to vacuum, lift, bend and picker feeder things, can't exercise because can't twist. Cooks but can't lift things. Can't wash leg, has to use long handle scrub. Difficulty carrying her table lamp. Functional Limitations- Mobility/Gait Not able to walking for exercise. Functional Limitations- Other Able to sit for an hour, but sometimes has random sharp pain. Personal Factors Other Personal Factors That May Effect Not able to work at this time. Therapy/Recovery Self employeed with spouse. Has two children, ages 28 and 13. History of depression. PT-OP-C Subjective Start: 11/02/19 11:26 Freq: Status: Active Protocol: Document 11/12/19 10:07 LRN (Rec: 11/12/19 10:59 LRN [id number]) OP-PT Subjective Patient Comments Patient Comments Has been being careful and has been turning and doing things better used ice after massage. Can't sit or bend to floor, couldn't be on the floor with granddaughter. Sharp pain only once PT-OP-F Manual Assessment Start: 11/02/19 11:26 Freq: Status: Active Protocol: Document 11/02/19 11:28 LRN (Rec: 11/03/19 08:55 LRN [id number]) Manual Assessments Soft Tissue Assessment Soft Tissue Mobility Assessment Decreased soft tissue mobility of the lumbar paraspinals, sacral region, and along well healed scar. Muscle guarding of posterior hip muscles R>L. PT-OP-G Mobility & Gait Start: 11/02/19 11:26 Freq: Status: Active Protocol: Document 11/02/19 11:28 LRN (Rec: 11/03/19 08:55 LRN [id number]) OP Mobility Evaluation Bed Mobility Supine to and from Sit Good log roll technique sit > Supine. Supine > Sit: Pt tried coming to sit with feet still on the plinth. Transfers Sit to Stand Good body mechanics PT-OP-H Neuro Start: 11/02/19 11:26 Freq: Status: Active Protocol: Document 11/02/19 11:28 LRN (Rec: 11/03/19 08:55 LRN [id number]) Sensation Evaluation Gross Sensation Gross Sensation WNL Deep Tendon Reflex & Clonus Assessment Deep Tendon Reflex Bilateral Achilles Deep Tendon Reflex 2+ Normal Bilateral Patellar Deep Tendon Reflex 3+ Normal But Brisk PT-OP-J Posture/Palpation/Skin Start: 11/02/19 11:26 Freq: Status: Active Protocol: Document 11/02/19 11:28 LRN (Rec: 11/03/19 08:55 LRN [id number]) Posture Evaluation Position Standing Evaluation View All positions Knee Posture (L) Genu Recurvatum,(R) Genu Recurvatum Foot Arch (L) Low Arch,(R) No Arch Palpation Assessment Location Lumbar Palpation Location Lower lumbar region Palpation Findings Edema Palpation Details Increased temperature. Sacrum Palpation Location Sacral region Palpation Findings Edema Palpation Details Increased temperature. Skin Assessment Incisional Assessment Incision Appearance/Comments Well healed scar with decreased tissue mobility. PT-OP-K Range of Motion Start: 11/02/19 11:26 Freq: Status: Active Protocol: Document 11/02/19 11:28 LRN (Rec: 11/02/19 12:48 LRN [id number]) Lumbar Spine Range of Motion Lumbar Spine Active Degrees Testing Position Standing Flexion 25 ROM Limitations Soft Tissue Tightness,Pain Comments Post op instructions: No excessive bending, twisting, lifting for 6 weeks. Sitting trunk rotation: 43 degs Right, 52 degs Left. Hip Goniometric Range of Motion Hip Right Passive Testing Position Supine Straight Leg Raise 85 Abduction 45 Internal Rotation 40 External Rotation 50 Left Passive Testing Position Supine Straight Leg Raise 85 Abduction 45 Internal Rotation 50 External Rotation 65 PT-OP-M Strength Start: 11/02/19 11:26 Freq: Status: Active Protocol: Document 11/02/19 11:28 LRN (Rec: 11/02/19 12:48 LRN [id number]) Trunk Strength Trunk Manual Muscle Testing Reason Not Measured Pain Comments 6 weeks post surgical. Hip Strength Hip Manual Muscle Testing Right Flexion (L2) 3+ Fair+ Abduction 5 Normal Adduction 3 Fair External Rotation 5 Normal Internal Rotation 4 Good Comments Pain in L LB with MMT of hip AD Left Flexion (L2) 5 Normal Abduction 3 Fair Adduction 3- Fair- External Rotation 3+ Fair+ Internal Rotation 5 Normal PT-OP-Q Treatments Start: 11/02/19 11:26 Freq: Status: Active Protocol: Document 12/26/19 10:07 LRN (Rec: 11/12/19 10:59 LRN [id number]) Therapeutic Exercises Supine Exercises Warm up routine Supine Exercise Name Trunk rotation. Comments 4' Bridge Supine Exercise Name Segmental slow rise (~2)and slow lower Reps/Minutes 4' Prone Exercises TA w/hip ext Prone Exercise Name TA w/Hip ext Side bilateral Reps/Minutes 5' Comments L>R, unable to stabilize w/L hip ext. Pelvis would rot R Sidelying Exercises Upper trunk rot Sidelying Exercise Name Upper trunk rot Side bilateral Reps/Minutes 4' Clamshell Sidelying Exercise Name Clamshell Side bilateral Reps/Minutes 15x 2 Manual Therapy Treatment Soft Tissue Mobilization Low back Body Location Low back and well healed incisions Mobilization Type Myofascial Release Intensity/Depth Superficial Body Position Prone Comments Restricted skin mobility generally. Taping Scars Body Location Well healed scars on lumbar spine Treatment Focus Improve scar mobility Type of Tape Kinesio Tape Comments 2 1/2 I-strips. Self-Care/Home Management Treatment Education Patient Education Home Exercise Program Activities Self-Care/Home Management Activities Verbal I/S on HEP of hip ext keeping pelvis in neutral PT-OP-R Modalities Start: 11/02/19 11:26 Freq: Status: Active Protocol: Document 11/09/19 09:56 LRN (Rec: 11/09/19 18:14 LRN [id number]) Hot Pack/Cold Pack Treatment Cold Pack Location Low Back Patient Position Supine Treatment Duration (minutes) 10 Patient Tolerance Good PT-OP-T Assessment and Plan Start: 11/02/19 11:26 Freq: Status: Active Protocol: Document 11/12/19 10:07 LRN (Rec: 11/12/19 10:59 LRN [id number]) Physical Therapy Assessment Goals Five Impairment Decreased hip mobility with difficulty bending & dressing. Short Term Goal (STG) Pt will be able to bend over in sitting and touch her knees to put lotion on her thighs without pain. STG Duration 12/04/19 [facility] Goal (LTG) Pt will be able to bend over to don/doff her pants and socks without minimal difficulty and pain no greater than 1/10. LTG Duration 01/31/20 Four Impairment Decreased lumbar mobility limiting ability picker feeder objects off the floor. Music Sound Light Technician Goal (LTG) Pt will be able to bend over to picker feeder light objects off the floor without difficulty. LTG Duration 12/04/19 Three Impairment Pt L LBP limiting ability to exercise Short Term Goal (STG) Pt will be able to start a light low level, LE strengthening program without weights. STG Duration 12/04/19 Music Sound Light Technician Goal (LTG) Pt will be able to start an independent exercise program of light hand and leg weights for UE/LE strengthening. LTG Duration 01/15/19 Two Impairment Daily LBP rated 4/10, sometimes sharp in nature limiting walking. Short Term Goal (STG) Decrease LBP at rest to 0/10 without onset of sharp pains. STG Duration 12/04/19 Music Sound Light Technician Goal (LTG) Pt will be able to walking the grocery store for shopping with pain no greater than 1/10 . LTG Duration 01/31/20 One Impairment Pt lacks a self care HEP [facility] Goal (LTG) Pt will be independent in a self care HEP to minimize back pain and allow pt to manage her condition at a tolerable level. LTG Duration 01/31/20 Assessment Summary Assessment Pt is 8 weeks postop today from L5-S1 back surgery for a L5-S1 spondylolisthesis and spnal stenosis. Pt lacks core control with L hip ext. Pt has slight improvement of ability to lift her hips with bridging. Pt needs use of UE' s to bridge. Scar mobility is improved, L worse than R. Sharp pain onset is decreasing . Pelvis/core needs stabilization. Pt choosing to ice at home. Physical Therapy Plan Frequency and Duration Frequency of Treatment 2x/Week Plan of Care Start Date 11/02/19 Plan of Care End Date 01/31/20 Next Visit Focus/Plan Next Note Type Treatment Note Next Visit Plan Assess response to K-tape. Start with TM or eliptical for gentle gradual strengthening and/or UE strengthening for core stabilization. Cont post op rehab of gentle trunk and hip ROM, Surgical MFR and STM to decrease scar tissue and adhesions as needed. End with cryotherapy unless pt chooses to ice at home.
--- NOTE | 2019-11-19 13:18 | PT.OTN ---
Physical Therapy Treatment Note PT-OP-A Visit Information Start: 11/02/19 11:26 Freq: Status: Active Protocol: Document 11/19/19 10:38 LRN (Rec: 11/19/19 11:23 LRN [id number]) Out-Patient Physical Therapy Visit Information Visit Information Visit Type Treatment Note Visit Start Time 10:38 Visit Stop Time 11:22 Total Visit Minutes 44 Visit Number 5 Number of DUST MILL OPERATOR Visits 0 Evaluation Information Evaluation Date 11/02/19 Precautions Precautions 09/17/19 Surgery: L5-S1 Postero-lateral & posterior interbody fusion, interbody cage placement, decompressive laminectomy w/bilateral facetecomies, posterior non- segmental instrumentation. [place] of bone marrow form iliac crest. Pt managing muscle spasm and pain with Hydroxyzine & Gabapentin. PT-OP-B Current Condition Start: 11/02/19 11:26 Freq: Status: Active Protocol: Document 11/02/19 11:28 LRN (Rec: 11/02/19 12:48 LRN [id number]) Current Condition History of Current Condition Onset Date 09/17/19 Current Complaints Pain is daily, sudden, occasional sharp pain. History of Current Condition 6 weeks post operative L5-S1 surgery. Pt reports pain is the same as before surgery. States she can't find relief of pain with stretching like she used to. Pain is in the spine with sitting, feels a pinching. She states she is taking nerve medicine and that she was told recovery might take 6 months. When sleeping on the L side she gets numbness and pain from her L greater trochanter to the lateral thigh. Sometimes she presses a tennis ball on her lateral hip to make it feel better. She has been trying to keep her hamstrings flexible so it won't pull on the back. She reports doing stretches daily what she was doing before surgery. Developmental History Developmental History Prior to surgery the pt had intermittent severe L low back pain at SIJ level that did not fully resolve with physical therapy. Treatment Goals Patient/Caregiver Goals Pt's goal is to get rid of the L LB & hip pain. She would like to be able to bend over, touch her knees, do exercise, walk, and shop as exercise. Prior Functional Status Baseline Function- ADL's Independent Baseline Function- Mobility Independent Baseline Function- Work/School Walked 10,000 steps per day Baseline Function- Other Couldn't sit longer than 10-15 ' & couldn't sit on soft chair . Current Functional Impairments (Reported) Functional Limitations- ADL's Not able to walk any length without L LBP & hip pain. Not able to vacuum, lift, bend and sampler pickup things, can't exercise because can't twist. Cooks but can't lift things. Can't wash leg, has to use long handle scrub. Difficulty carrying her table lamp. Functional Limitations- Mobility/Gait Not able to walking for exercise. Functional Limitations- Other Able to sit for an hour, but sometimes has random sharp pain. Personal Factors Other Personal Factors That May Effect Not able to work at this time. Therapy/Recovery Self employeed with spouse. Has two children, ages 28 and 13. History of depression. PT-OP-C Subjective Start: 11/02/19 11:26 Freq: Status: Active Protocol: Document 11/19/19 10:38 LRN (Rec: 11/19/19 11:23 LRN [id number]) OP-PT Subjective Patient Comments Patient Comments Using a 5# handweight for UE strengthening while on her back. States she uses a belt to help lower herself down to the ground to sit on the ground. Doing self TrP treatment and massage to her back. She reports her pain is not as strong as it used to be. PT-OP-F Manual Assessment Start: 11/02/19 11:26 Freq: Status: Active Protocol: Document 11/02/19 11:28 LRN (Rec: 11/03/19 08:55 LRN [id number]) Manual Assessments Soft Tissue Assessment Soft Tissue Mobility Assessment Decreased soft tissue mobility of the lumbar paraspinals, sacral region, and along well healed scar. Muscle guarding of posterior hip muscles R>L. PT-OP-G Mobility & Gait Start: 11/02/19 11:26 Freq: Status: Active Protocol: Document 11/02/19 11:28 LRN (Rec: 11/03/19 08:55 LRN [id number]) OP Mobility Evaluation Bed Mobility Supine to and from Sit Good log roll technique sit > Supine. Supine > Sit: Pt tried coming to sit with feet still on the plinth. Transfers Sit to Stand Good body mechanics PT-OP-H Neuro Start: 11/02/19 11:26 Freq: Status: Active Protocol: Document 11/02/19 11:28 LRN (Rec: 11/03/19 08:55 LRN [id number]) Sensation Evaluation Gross Sensation Gross Sensation WNL Deep Tendon Reflex & Clonus Assessment Deep Tendon Reflex Bilateral Achilles Deep Tendon Reflex 2+ Normal Bilateral Patellar Deep Tendon Reflex 3+ Normal But Brisk PT-OP-J Posture/Palpation/Skin Start: 11/02/19 11:26 Freq: Status: Active Protocol: Document 11/02/19 11:28 LRN (Rec: 11/03/19 08:55 LRN [id number]) Posture Evaluation Position Standing Evaluation View All positions Knee Posture (L) Genu Recurvatum,(R) Genu Recurvatum Foot Arch (L) Low Arch,(R) No Arch Palpation Assessment Location Lumbar Palpation Location Lower lumbar region Palpation Findings Edema Palpation Details Increased temperature. Sacrum Palpation Location Sacral region Palpation Findings Edema Palpation Details Increased temperature. Skin Assessment Incisional Assessment Incision Appearance/Comments Well healed scar with decreased tissue mobility. PT-OP-K Range of Motion Start: 11/02/19 11:26 Freq: Status: Active Protocol: Document 11/02/19 11:28 LRN (Rec: 11/02/19 12:48 LRN [id number]) Lumbar Spine Range of Motion Lumbar Spine Active Degrees Testing Position Standing Flexion 25 ROM Limitations Soft Tissue Tightness,Pain Comments Post op instructions: No excessive bending, twisting, lifting for 6 weeks. Sitting trunk rotation: 43 degs Right, 52 degs Left. Hip Goniometric Range of Motion Hip Right Passive Testing Position Supine Straight Leg Raise 85 Abduction 45 Internal Rotation 40 External Rotation 50 Left Passive Testing Position Supine Straight Leg Raise 85 Abduction 45 Internal Rotation 50 External Rotation 65 PT-OP-M Strength Start: 11/02/19 11:26 Freq: Status: Active Protocol: Document 11/02/19 11:28 LRN (Rec: 11/02/19 12:48 LRN [id number]) Trunk Strength Trunk Manual Muscle Testing Reason Not Measured Pain Comments 6 weeks post surgical. Hip Strength Hip Manual Muscle Testing Right Flexion (L2) 3+ Fair+ Abduction 5 Normal Adduction 3 Fair External Rotation 5 Normal Internal Rotation 4 Good Comments Pain in L LB with MMT of hip AD Left Flexion (L2) 5 Normal Abduction 3 Fair Adduction 3- Fair- External Rotation 3+ Fair+ Internal Rotation 5 Normal PT-OP-Q Treatments Start: 11/02/19 11:26 Freq: Status: Active Protocol: Document 11/19/19 10:38 LRN (Rec: 11/19/19 11:23 LRN [id number]) Gym Equipment Cable Column (Body Solid) Leg Curl Details Knee Flex, Seat 6 holes showing Resistance 25# Reps/Time 10 x 3 Leg Extension Details Knee ext, Seat 6 holes showing Resistance 25# Reps/Time 10 x 3 Hip Adduction Details Hip AD. Seat 4 holes showing. Resistance 30# Reps/Time 10 x 3 Hip Abduction Details Hip AB. Seat 4 holes showing. Resistance 25# Reps/Time 10 x 3 Therapeutic Exercises Sitting Exercises Hip ER stretch (Fig 4) Sitting Exercise Name Fig 4 stretch for Hip ER Side bilateral Reps/Minutes 3' Sit <-> Stand Sitting Exercise Name Sit <-> Stand Reps/Minutes 8' Comments Extra time taken for training for proper method without pain Manual Therapy Treatment Soft Tissue Mobilization Low back Body Location Low back and well healed incisions Mobilization Type Myofascial Release Intensity/Depth Superficial Body Position Prone Comments Restricted skin mobility generally. PT-OP-R Modalities Start: 11/02/19 11:26 Freq: Status: Active Protocol: Document 11/19/19 10:38 LRN (Rec: 11/19/19 11:23 LRN [id number]) Hot Pack/Cold Pack Treatment Cold Pack Location Low Back Patient Position Supine Treatment Duration (minutes) 10 Patient Tolerance Good PT-OP-T Assessment and Plan Start: 11/02/19 11:26 Freq: Status: Active Protocol: Document 11/19/19 10:38 LRN (Rec: 11/19/19 11:23 LRN [id number]) Physical Therapy Assessment Goals Five Impairment Decreased hip mobility with difficulty bending & dressing. Short Term Goal (STG) Pt will be able to bend over in sitting and touch her knees to put lotion on her thighs without pain. STG Duration 12/04/19 (11/19/19: GOAL MET) Group Home Goal (LTG) Pt will be able to bend over to don/doff her pants and socks without minimal difficulty and pain no greater than 1/10. LTG Duration 01/31/20 (11/19/19: IMPROVING) Four Impairment Decreased lumbar mobility limiting ability sampler pickup objects off the floor. Group Home Goal (LTG) Pt will be able to bend over to sampler pickup light objects off the floor without difficulty. LTG Duration 12/04/19 Three Impairment Pt L LBP limiting ability to exercise Short Term Goal (STG) Pt will be able to start a light low level, LE strengthening program without weights. STG Duration 12/04/19 (11/19/19: GOAL MET) Heating Unit Mechanic Goal (LTG) Pt will be able to start an independent exercise program of light hand and leg weights for UE/LE strengthening. LTG Duration 01/15/19 (11/19/19: INITIATED) Two Impairment Daily LBP rated 4/10, sometimes sharp in nature limiting walking. Short Term Goal (STG) Decrease LBP at rest to 0/10 without onset of sharp pains. STG Duration 12/04/19 (11/19/19: PROGRESSING ) Group Home Goal (LTG) Pt will be able to walking the grocery store for shopping with pain no greater than 1/10 . LTG Duration 01/31/20 (11/19/19: GOAL MET) One Impairment Pt lacks a self care HEP Group Home Goal (LTG) Pt will be independent in a self care HEP to minimize back pain and allow pt to manage her condition at a tolerable level. LTG Duration 01/31/20 (11/19/19: PROGRESSING) Progress Towards Goals Progress Comments 11/19/19: Goal 1) Progressing HEP. Goal 2) STG: Progressing LTG: MET Goal 3) STG: MET LTG: Initiated Goal 4) LTG: NOT MET Goal 5) STG: MET LTG: PROGRESSING. Assessment Summary Assessment Pt is 9 weeks post op L5-S1 surgery for spondylolisthesis and spinal stenosis. Great progress towards goals. She tolerated start of a light weight LE strengthening program without complaints of sharp pain. She was able, with assist, to lift her legs to get into the hip AD/AD dual mary device for strengthening without pain, only reports of tightness. Pt needs alternative methods of pain relief other than lying in supine. Soft tissue mobility restriction on the L LB/QL. Physical Therapy Plan Frequency and Duration Frequency of Treatment 2x/Week Plan of Care Start Date 11/02/19 Plan of Care End Date 01/31/20 Next Visit Focus/Plan Next Note Type Treatment Note Next Visit Plan Start with TM or eliptical, add UE strengthening for core stabilization. Cont post op rehab of trunk and as needed hip ROM, Surgical scar MFR and low back STM to improve tissue mobility (L QL) & decrease scar tissue and adhesions as needed. End with cryotherapy unless pt chooses to ice at home.
--- NOTE | 2019-11-23 11:37 | PT.OTN ---
Physical Therapy Treatment Note PT-OP-A Visit Information Start: 11/02/19 11:26 Freq: Status: Active Protocol: Document 11/23/19 09:51 LRN (Rec: 11/23/19 10:36 LRN [id number]) Out-Patient Physical Therapy Visit Information Visit Information Visit Type Treatment Note Visit Start Time 09:51 Visit Stop Time 10:44 Total Visit Minutes 53 Visit Number 6 Number of SENIOR ASSISTANT MANAGER Visits 0 Evaluation Information Evaluation Date 11/02/19 Precautions Precautions 09/17/19 Surgery: L5-S1 Postero-lateral & posterior interbody fusion, interbody cage placement, decompressive laminectomy w/bilateral facetecomies, posterior non- segmental instrumentation. [place] of bone marrow form iliac crest. Pt managing muscle spasm and pain with Hydroxyzine & Gabapentin. PT-OP-B Current Condition Start: 11/02/19 11:26 Freq: Status: Active Protocol: Document 11/02/19 11:28 LRN (Rec: 11/02/19 12:48 LRN [id number]) Current Condition History of Current Condition Onset Date 09/17/19 Current Complaints Pain is daily, sudden, occasional sharp pain. History of Current Condition 6 weeks post operative L5-S1 surgery. Pt reports pain is the same as before surgery. States she can't find relief of pain with stretching like she used to. Pain is in the spine with sitting, feels a pinching. She states she is taking nerve medicine and that she was told recovery might take 6 months. When sleeping on the L side she gets numbness and pain from her L greater trochanter to the lateral thigh. Sometimes she presses a tennis ball on her lateral hip to make it feel better. She has been trying to keep her hamstrings flexible so it won't pull on the back. She reports doing stretches daily what she was doing before surgery. Developmental History Developmental History Prior to surgery the pt had intermittent severe L low back pain at SIJ level that did not fully resolve with physical therapy. Treatment Goals Patient/Caregiver Goals Pt's goal is to get rid of the L LB & hip pain. She would like to be able to bend over, touch her knees, do exercise, walk, and shop as exercise. Prior Functional Status Baseline Function- ADL's Independent Baseline Function- Mobility Independent Baseline Function- Work/School Walked 10,000 steps per day Baseline Function- Other Couldn't sit longer than 10-15 ' & couldn't sit on soft chair . Current Functional Impairments (Reported) Functional Limitations- ADL's Not able to walk any length without L LBP & hip pain. 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 Cooks but can't lift things. Can't wash leg, has to use long handle scrub. Difficulty carrying her table lamp. Functional Limitations- Mobility/Gait Not able to walking for exercise. Functional Limitations- Other Able to sit for an hour, but sometimes has random sharp pain. Personal Factors Other Personal Factors That May Effect Not able to work at this time. Therapy/Recovery Self employeed with spouse. Has two children, ages 28 and 13. History of depression. PT-OP-C Subjective Start: 11/02/19 11:26 Freq: Status: Active Protocol: Document 11/23/19 09:51 LRN (Rec: 11/23/19 10:36 LRN [id number]) OP-PT Subjective Patient Comments Patient Comments States she had to lie down once and heard clicking. Reported the click with knee ext exercise. PT-OP-F Manual Assessment Start: 11/02/19 11:26 Freq: Status: Active Protocol: Document 11/02/19 11:28 LRN (Rec: 11/03/19 08:55 LRN [id number]) Manual Assessments Soft Tissue Assessment Soft Tissue Mobility Assessment Decreased soft tissue mobility of the lumbar paraspinals, sacral region, and along well healed scar. Muscle guarding of posterior hip muscles R>L. PT-OP-G Mobility & Gait Start: 11/02/19 11:26 Freq: Status: Active Protocol: Document 11/02/19 11:28 LRN (Rec: 11/03/19 08:55 LRN [id number]) OP Mobility Evaluation Bed Mobility Supine to and from Sit Good log roll technique sit > Supine. Supine > Sit: Pt tried coming to sit with feet still on the plinth. Transfers Sit to Stand Good body mechanics PT-OP-H Neuro Start: 11/02/19 11:26 Freq: Status: Active Protocol: Document 11/02/19 11:28 LRN (Rec: 11/03/19 08:55 LRN [id number]) Sensation Evaluation Gross Sensation Gross Sensation WNL Deep Tendon Reflex & Clonus Assessment Deep Tendon Reflex Bilateral Achilles Deep Tendon Reflex 2+ Normal Bilateral Patellar Deep Tendon Reflex 3+ Normal But Brisk PT-OP-J Posture/Palpation/Skin Start: 11/02/19 11:26 Freq: Status: Active Protocol: Document 11/02/19 11:28 LRN (Rec: 11/03/19 08:55 LRN [id number]) Posture Evaluation Position Standing Evaluation View All positions Knee Posture (L) Genu Recurvatum,(R) Genu Recurvatum Foot Arch (L) Low Arch,(R) No Arch Palpation Assessment Location Lumbar Palpation Location Lower lumbar region Palpation Findings Edema Palpation Details Increased temperature. Sacrum Palpation Location Sacral region Palpation Findings Edema Palpation Details Increased temperature. Skin Assessment Incisional Assessment Incision Appearance/Comments Well healed scar with decreased tissue mobility. PT-OP-K Range of Motion Start: 11/02/19 11:26 Freq: Status: Active Protocol: Document 11/02/19 11:28 LRN (Rec: 11/02/19 12:48 LRN [id number]) Lumbar Spine Range of Motion Lumbar Spine Active Degrees Testing Position Standing Flexion 25 ROM Limitations Soft Tissue Tightness,Pain Comments Post op instructions: No excessive bending, twisting, lifting for 6 weeks. Sitting trunk rotation: 43 degs Right, 52 degs Left. Hip Goniometric Range of Motion Hip Right Passive Testing Position Supine Straight Leg Raise 85 Abduction 45 Internal Rotation 40 External Rotation 50 Left Passive Testing Position Supine Straight Leg Raise 85 Abduction 45 Internal Rotation 50 External Rotation 65 PT-OP-M Strength Start: 11/02/19 11:26 Freq: Status: Active Protocol: Document 11/02/19 11:28 LRN (Rec: 11/02/19 12:48 LRN [id number]) Trunk Strength Trunk Manual Muscle Testing Reason Not Measured Pain Comments 6 weeks post surgical. Hip Strength Hip Manual Muscle Testing Right Flexion (L2) 3+ Fair+ Abduction 5 Normal Adduction 3 Fair External Rotation 5 Normal Internal Rotation 4 Good Comments Pain in L LB with MMT of hip AD Left Flexion (L2) 5 Normal Abduction 3 Fair Adduction 3- Fair- External Rotation 3+ Fair+ Internal Rotation 5 Normal PT-OP-Q Treatments Start: 11/02/19 11:26 Freq: Status: Active Protocol: Document 11/23/19 09:51 LRN (Rec: 11/23/19 10:36 LRN [id number]) Cardio Equipment Treadmill Duration (Minutes) 10 Speed 1.8 Incline 0 Gym Equipment Cable Column (Body Solid) Leg Curl Details Knee Flex, Seat 6 holes showing Resistance 25# Reps/Time 5x Hip Adduction Details Hip AD. Seat 4 holes showing. Resistance 30# Reps/Time 10 x 3 Hip Abduction Details Hip AB. Seat 4 holes showing. Resistance 25# Reps/Time 10 x 3 Therapeutic Exercises Supine Exercises Warm up routine Supine Exercise Name Trunk rotation. Comments 4' Fig 4 stretch Supine Exercise Name Fig 4 stretch in supine & Supine w/knees flexed. Side bilateral Reps/Minutes 3' Sitting Exercises Upper trunk Sitting Exercise Name SB & Flex Side right Comments R>L stretch Manual Therapy Treatment Soft Tissue Mobilization Hip ER's Body Location Bilaterally: Hip ER's at Sacral Border Mobilization Type Instrument Assisted,Strumming, Sustained Pressure Intensity/Depth Moderate Body Position Prone Comments Intensity/Depth: Moderate to Deep. Low back Body Location Upper Back and well healed incisions Mobilization Type Myofascial Release Intensity/Depth Superficial Body Position Prone Comments Focus on Upper back PT-OP-R Modalities Start: 11/02/19 11:26 Freq: Status: Active Protocol: Document 11/19/19 10:38 LRN (Rec: 11/19/19 11:23 LRN [id number]) Hot Pack/Cold Pack Treatment Cold Pack Location Low Back Patient Position Supine Treatment Duration (minutes) 10 Patient Tolerance Good PT-OP-T Assessment and Plan Start: 11/02/19 11:26 Freq: Status: Active Protocol: Document 11/23/19 09:51 LRN (Rec: 11/23/19 10:36 LRN [id number]) Physical Therapy Assessment Goals Five Impairment Decreased hip mobility with difficulty bending & dressing. Short Term Goal (STG) Pt will be able to bend over in sitting and touch her knees to put lotion on her thighs without pain. STG Duration 12/04/19 (11/19/19: GOAL MET) Half-Way Goal (LTG) Pt will be able to bend over to don/doff her pants and socks without minimal difficulty and pain no greater than 1/10. 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 Mortgage Lender Goal (LTG) Pt will be able to bend over to pharmacy picking tech light objects off the floor without difficulty. LTG Duration 12/04/19 Three Impairment Pt L LBP limiting ability to exercise Short Term Goal (STG) Pt will be able to start a light low level, LE strengthening program without weights. STG Duration 12/04/19 (11/19/19: GOAL MET) Mortgage Lender Goal (LTG) Pt will be able to start an independent exercise program of light hand and leg weights for UE/LE strengthening. LTG Duration 01/15/19 (11/19/19: INITIATED) Two Impairment Daily LBP rated 4/10, sometimes sharp in nature limiting walking. Short Term Goal (STG) Decrease LBP at rest to 0/10 without onset of sharp pains. STG Duration 12/04/19 (11/19/19: PROGRESSING ) Mortgage Lender Goal (LTG) Pt will be able to walking the grocery store for shopping with pain no greater than 1/10 . LTG Duration 01/31/20 (11/19/19: GOAL MET) One Impairment Pt lacks a self care HEP Half-Way Goal (LTG) Pt will be independent in a self care HEP to minimize back pain and allow pt to manage her condition at a tolerable level. LTG Duration 01/31/20 (11/19/19: PROGRESSING) Assessment Summary Assessment Pt is 9.5 weeks post op L5-S1 surgery for spondylolisthesis and spinal stenosis. Today, poor tolerance with Leg Curl due to sudden sharp pain and a feeling like having a shift in back, otherwise progressing well. Pt was able to stand and walk without pain to end with cryotherapy on the plinth table. Physical Therapy Plan Frequency and Duration Frequency of Treatment 2x/Week Plan of Care Start Date 11/02/19 Plan of Care End Date 01/31/20 Next Visit Focus/Plan Next Note Type Treatment Note Next Visit Plan Start with TM, add UE strengthening for core stabilization. Caution on Leg Curl/Ext, starting knee in flexion. Cont post op rehab of trunk and as needed hip ROM , Surgical scar MFR and STM gluteals & LB (L QL & upper back paraspinals) & for improved coccyx mobility. End with cryotherapy unless pt chooses to ice at home.
--- NOTE | 2019-11-26 17:01 | PT.OTN ---
Physical Therapy Treatment Note PT-OP-A Visit Information Start: 11/02/19 11:26 Freq: Status: Active Protocol: Document 11/26/19 09:04 LRN (Rec: 11/26/19 09:49 LRN [id number]) Out-Patient Physical Therapy Visit Information Visit Information Visit Type Treatment Note Visit Start Time 09:04 Visit Stop Time 09:46 Total Visit Minutes 42 Visit Number 7 Number of TRANSPLANT SURGEON Visits 0 Evaluation Information Evaluation Date 11/02/19 Precautions Precautions 09/17/19 Surgery: L5-S1 Postero-lateral & posterior interbody fusion, interbody cage placement, decompressive laminectomy w/bilateral facetecomies, posterior non- segmental instrumentation. [place] of bone marrow form iliac crest. Pt managing muscle spasm and pain with Hydroxyzine & Gabapentin. PT-OP-B Current Condition Start: 11/02/19 11:26 Freq: Status: Active Protocol: Document 11/02/19 11:28 LRN (Rec: 11/02/19 12:48 LRN [id number]) Current Condition History of Current Condition Onset Date 09/17/19 Current Complaints Pain is daily, sudden, occasional sharp pain. History of Current Condition 6 weeks post operative L5-S1 surgery. Pt reports pain is the same as before surgery. States she can't find relief of pain with stretching like she used to. Pain is in the spine with sitting, feels a pinching. She states she is taking nerve medicine and that she was told recovery might take 6 months. When sleeping on the L side she gets numbness and pain from her L greater trochanter to the lateral thigh. Sometimes she presses a tennis ball on her lateral hip to make it feel better. She has been trying to keep her hamstrings flexible so it won't pull on the back. She reports doing stretches daily what she was doing before surgery. Developmental History Developmental History Prior to surgery the pt had intermittent severe L low back pain at SIJ level that did not fully resolve with physical therapy. Treatment Goals Patient/Caregiver Goals Pt's goal is to get rid of the L LB & hip pain. She would like to be able to bend over, touch her knees, do exercise, walk, and shop as exercise. Prior Functional Status Baseline Function- ADL's Independent Baseline Function- Mobility Independent Baseline Function- Work/School Walked 10,000 steps per day Baseline Function- Other Couldn't sit longer than 10-15 ' & couldn't sit on soft chair . Current Functional Impairments (Reported) Functional Limitations- ADL's Not able to walk any length without L LBP & hip pain. Not able to vacuum, lift, bend and pickling grader things, can't exercise because can't twist. Cooks but can't lift things. Can't wash leg, has to use long handle scrub. Difficulty carrying her table lamp. Functional Limitations- Mobility/Gait Not able to walking for exercise. Functional Limitations- Other Able to sit for an hour, but sometimes has random sharp pain. Personal Factors Other Personal Factors That May Effect Not able to work at this time. Therapy/Recovery Self employeed with spouse. Has two children, ages 28 and 13. History of depression. PT-OP-C Subjective Start: 11/02/19 11:26 Freq: Status: Active Protocol: Document 11/26/19 09:04 LRN (Rec: 11/26/19 09:49 LRN [id number]) OP-PT Subjective Patient Comments Patient Comments Yesterday ms ache all over, and has pain in L upper shoulder and neck. Had to take med for ms spasm every 5 hrs. Took 2 Tylenol. Yesterday no sharp pain in LB, just weak. No sharp pain in back, no clicking PT-OP-F Manual Assessment Start: 11/02/19 11:26 Freq: Status: Active Protocol: Document 11/02/19 11:28 LRN (Rec: 11/03/19 08:55 LRN [id number]) Manual Assessments Soft Tissue Assessment Soft Tissue Mobility Assessment Decreased soft tissue mobility of the lumbar paraspinals, sacral region, and along well healed scar. Muscle guarding of posterior hip muscles R>L. PT-OP-G Mobility & Gait Start: 11/02/19 11:26 Freq: Status: Active Protocol: Document 11/02/19 11:28 LRN (Rec: 11/03/19 08:55 LRN [id number]) OP Mobility Evaluation Bed Mobility Supine to and from Sit Good log roll technique sit > Supine. Supine > Sit: Pt tried coming to sit with feet still on the plinth. Transfers Sit to Stand Good body mechanics PT-OP-H Neuro Start: 11/02/19 11:26 Freq: Status: Active Protocol: Document 11/02/19 11:28 LRN (Rec: 11/03/19 08:55 LRN [id number]) Sensation Evaluation Gross Sensation Gross Sensation WNL Deep Tendon Reflex & Clonus Assessment Deep Tendon Reflex Bilateral Achilles Deep Tendon Reflex 2+ Normal Bilateral Patellar Deep Tendon Reflex 3+ Normal But Brisk PT-OP-J Posture/Palpation/Skin Start: 11/02/19 11:26 Freq: Status: Active Protocol: Document 11/02/19 11:28 LRN (Rec: 11/03/19 08:55 LRN [id number]) Posture Evaluation Position Standing Evaluation View All positions Knee Posture (L) Genu Recurvatum,(R) Genu Recurvatum Foot Arch (L) Low Arch,(R) No Arch Palpation Assessment Location Lumbar Palpation Location Lower lumbar region Palpation Findings Edema Palpation Details Increased temperature. Sacrum Palpation Location Sacral region Palpation Findings Edema Palpation Details Increased temperature. Skin Assessment Incisional Assessment Incision Appearance/Comments Well healed scar with decreased tissue mobility. PT-OP-K Range of Motion Start: 11/02/19 11:26 Freq: Status: Active Protocol: Document 11/02/19 11:28 LRN (Rec: 11/02/19 12:48 LRN [id number]) Lumbar Spine Range of Motion Lumbar Spine Active Degrees Testing Position Standing Flexion 25 ROM Limitations Soft Tissue Tightness,Pain Comments Post op instructions: No excessive bending, twisting, lifting for 6 weeks. Sitting trunk rotation: 43 degs Right, 52 degs Left. Hip Goniometric Range of Motion Hip Right Passive Testing Position Supine Straight Leg Raise 85 Abduction 45 Internal Rotation 40 External Rotation 50 Left Passive Testing Position Supine Straight Leg Raise 85 Abduction 45 Internal Rotation 50 External Rotation 65 PT-OP-M Strength Start: 11/02/19 11:26 Freq: Status: Active Protocol: Document 11/02/19 11:28 LRN (Rec: 11/02/19 12:48 LRN [id number]) Trunk Strength Trunk Manual Muscle Testing Reason Not Measured Pain Comments 6 weeks post surgical. Hip Strength Hip Manual Muscle Testing Right Flexion (L2) 3+ Fair+ Abduction 5 Normal Adduction 3 Fair External Rotation 5 Normal Internal Rotation 4 Good Comments Pain in L LB with MMT of hip AD Left Flexion (L2) 5 Normal Abduction 3 Fair Adduction 3- Fair- External Rotation 3+ Fair+ Internal Rotation 5 Normal PT-OP-Q Treatments Start: 11/02/19 11:26 Freq: Status: Active Protocol: Document 11/26/19 09:04 LRN (Rec: 11/26/19 09:49 LRN [id number]) Therapeutic Exercises Supine Exercises TA Heel slides Supine Exercise Name TA w/alternating heel slides Side bilateral Reps/Minutes 15x each Warm up routine Supine Exercise Name Trunk rotation, Shoulder stretch, full body extenskion. Comments 3', tight with trunk R rot (L knee roll) Bridge Supine Exercise Name Segmental slow rise Reps/Minutes 3', 10x Comments Pt moves cautiously & slowly, able to raise ~1/2 way. Fig 4 stretch Supine Exercise Name Fig 4 stretch in supine & Supine w/knees flexed. Side bilateral Reps/Minutes 3' Manual Therapy Treatment Soft Tissue Mobilization Hip ER's Body Location Left Hip ER's at Sacral Border Mobilization Type Strumming,Sustained Pressure Intensity/Depth Moderate Body Position Prone Comments Intensity/Depth: Moderate to Deep. Low back Body Location Upper and low Back Mobilization Type Myofascial Release Intensity/Depth Superficial Body Position Prone Comments Focus a little more on Upper back Manual Traction Cervical Details Manual C. tx Body Position Supine Reps/Duration 3' Comments Traction axial and with Cervical Rotation right PT-OP-R Modalities Start: 11/02/19 11:26 Freq: Status: Active Protocol: Document 11/19/19 10:38 LRN (Rec: 11/19/19 11:23 LRN [id number]) Hot Pack/Cold Pack Treatment Cold Pack Location Low Back Patient Position Supine Treatment Duration (minutes) 10 Patient Tolerance Good PT-OP-T Assessment and Plan Start: 11/02/19 11:26 Freq: Status: Active Protocol: Document 11/26/19 09:04 LRN (Rec: 11/26/19 09:49 LRN [id number]) Physical Therapy Assessment Goals Five Impairment Decreased hip mobility with difficulty bending & dressing. Short Term Goal (STG) Pt will be able to bend over in sitting and touch her knees to put lotion on her thighs without pain. STG Duration 12/04/19 (11/19/19: GOAL MET) Detention Goal (LTG) Pt will be able to bend over to don/doff her pants and socks without minimal difficulty and pain no greater than 1/10. LTG Duration 01/31/20 (11/19/19: IMPROVING) Four Impairment Decreased lumbar mobility limiting ability pickling grader objects off the floor. Detention Goal (LTG) Pt will be able to bend over to pickling grader light objects off the floor without difficulty. LTG Duration 12/04/19 Three Impairment Pt L LBP limiting ability to exercise Short Term Goal (STG) Pt will be able to start a light low level, LE strengthening program without weights. STG Duration 12/04/19 (11/19/19: GOAL MET) Gas Regulator Repairer Goal (LTG) Pt will be able to start an independent exercise program of light hand and leg weights for UE/LE strengthening. LTG Duration 01/15/19 (11/19/19: INITIATED) Two Impairment Daily LBP rated 4/10, sometimes sharp in nature limiting walking. Short Term Goal (STG) Decrease LBP at rest to 0/10 without onset of sharp pains. STG Duration 12/04/19 (11/19/19: PROGRESSING ) Gas Regulator Repairer Goal (LTG) Pt will be able to walking the grocery store for shopping with pain no greater than 1/10 . LTG Duration 01/31/20 (11/19/19: GOAL MET) One Impairment Pt lacks a self care HEP Gas Regulator Repairer Goal (LTG) Pt will be independent in a self care HEP to minimize back pain and allow pt to manage her condition at a tolerable level. LTG Duration 01/31/20 (11/19/19: PROGRESSING) Assessment Summary Assessment L hip ER slightly tighter than the R during fig 4 stretch. Pt has tightness of the L upper back and R Lumbar paraspinals. Pt's body appears to be adjusting to mechanical changes from surgery and is adjusting today more in the upper back and neck. Physical Therapy Plan Frequency and Duration Frequency of Treatment 2x/Week Plan of Care Start Date 11/02/19 Plan of Care End Date 01/31/20 Next Visit Focus/Plan Next Note Type Treatment Note Next Visit Plan If tolerated, start with general exer on TM, possibly adding UE strengthening for core stabilization. Try Leg Curl/Ext, starting knee in flexion with T-Band vs dual pully. Cont post op rehab of trunk and as needed hip ROM, Surgical scar MFR and STM gluteals & LB/coccyx (L QL & upper back paraspinals). End with cryotherapy unless pt chooses to ice at home.
--- NOTE | 2019-11-30 11:25 | PT.OTN ---
Physical Therapy Treatment Note PT-OP-A Visit Information Start: 11/02/19 11:26 Freq: Status: Active Protocol: Document 11/30/19 08:22 LRN (Rec: 11/30/19 09:50 LRN [id number]) Out-Patient Physical Therapy Visit Information Visit Information Visit Type Treatment Note Visit Start Time 08:22 Visit Stop Time 09:23 Total Visit Minutes 61 Visit Number 8 Number of SUPERVISING LIBRARIAN Visits 0 Evaluation Information Evaluation Date 11/02/19 Precautions Precautions 09/17/19 Surgery: L5-S1 Postero-lateral & posterior interbody fusion, interbody cage placement, decompressive laminectomy w/bilateral facetecomies, posterior non- segmental instrumentation. [place] of bone marrow form iliac crest. Pt managing muscle spasm and pain with Hydroxyzine & Gabapentin. PT-OP-B Current Condition Start: 11/02/19 11:26 Freq: Status: Active Protocol: Document 11/02/19 11:28 LRN (Rec: 11/02/19 12:48 LRN [id number]) Current Condition History of Current Condition Onset Date 09/17/19 Current Complaints Pain is daily, sudden, occasional sharp pain. History of Current Condition 6 weeks post operative L5-S1 surgery. Pt reports pain is the same as before surgery. States she can't find relief of pain with stretching like she used to. Pain is in the spine with sitting, feels a pinching. She states she is taking nerve medicine and that she was told recovery might take 6 months. When sleeping on the L side she gets numbness and pain from her L greater trochanter to the lateral thigh. Sometimes she presses a tennis ball on her lateral hip to make it feel better. She has been trying to keep her hamstrings flexible so it won't pull on the back. She reports doing stretches daily what she was doing before surgery. Developmental History Developmental History Prior to surgery the pt had intermittent severe L low back pain at SIJ level that did not fully resolve with physical therapy. Treatment Goals Patient/Caregiver Goals Pt's goal is to get rid of the L LB & hip pain. She would like to be able to bend over, touch her knees, do exercise, walk, and shop as exercise. Prior Functional Status Baseline Function- ADL's Independent Baseline Function- Mobility Independent Baseline Function- Work/School Walked 10,000 steps per day Baseline Function- Other Couldn't sit longer than 10-15 ' & couldn't sit on soft chair . Current Functional Impairments (Reported) Functional Limitations- ADL's Not able to walk any length without L LBP & hip pain. 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 Cooks but can't lift things. Can't wash leg, has to use long handle scrub. Difficulty carrying her table lamp. Functional Limitations- Mobility/Gait Not able to walking for exercise. Functional Limitations- Other Able to sit for an hour, but sometimes has random sharp pain. Personal Factors Other Personal Factors That May Effect Not able to work at this time. Therapy/Recovery Self employeed with spouse. Has two children, ages 28 and 13. History of depression. 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 This morning tight and painful in L upper back and low back. Took a ms relaxor this morning. PT-OP-F Manual Assessment Start: 11/02/19 11:26 Freq: Status: Active Protocol: Document 11/02/19 11:28 LRN (Rec: 11/03/19 08:55 LRN [id number]) Manual Assessments Soft Tissue Assessment Soft Tissue Mobility Assessment Decreased soft tissue mobility of the lumbar paraspinals, sacral region, and along well healed scar. Muscle guarding of posterior hip muscles R>L. PT-OP-G Mobility & Gait Start: 11/02/19 11:26 Freq: Status: Active Protocol: Document 11/02/19 11:28 LRN (Rec: 11/03/19 08:55 LRN [id number]) OP Mobility Evaluation Bed Mobility Supine to and from Sit Good log roll technique sit > Supine. Supine > Sit: Pt tried coming to sit with feet still on the plinth. Transfers Sit to Stand Good body mechanics PT-OP-H Neuro Start: 11/02/19 11:26 Freq: Status: Active Protocol: Document 11/02/19 11:28 LRN (Rec: 11/03/19 08:55 LRN [id number]) Sensation Evaluation Gross Sensation Gross Sensation WNL Deep Tendon Reflex & Clonus Assessment Deep Tendon Reflex Bilateral Achilles Deep Tendon Reflex 2+ Normal Bilateral Patellar Deep Tendon Reflex 3+ Normal But Brisk PT-OP-J Posture/Palpation/Skin Start: 11/02/19 11:26 Freq: Status: Active Protocol: Document 11/02/19 11:28 LRN (Rec: 11/03/19 08:55 LRN [id number]) Posture Evaluation Position Standing Evaluation View All positions Knee Posture (L) Genu Recurvatum,(R) Genu Recurvatum Foot Arch (L) Low Arch,(R) No Arch Palpation Assessment Location Lumbar Palpation Location Lower lumbar region Palpation Findings Edema Palpation Details Increased temperature. Sacrum Palpation Location Sacral region Palpation Findings Edema Palpation Details Increased temperature. Skin Assessment Incisional Assessment Incision Appearance/Comments Well healed scar with decreased tissue mobility. PT-OP-K Range of Motion Start: 11/02/19 11:26 Freq: Status: Active Protocol: Document 11/02/19 11:28 LRN (Rec: 11/02/19 12:48 LRN [id number]) Lumbar Spine Range of Motion Lumbar Spine Active Degrees Testing Position Standing Flexion 25 ROM Limitations Soft Tissue Tightness,Pain Comments Post op instructions: No excessive bending, twisting, lifting for 6 weeks. Sitting trunk rotation: 43 degs Right, 52 degs Left. Hip Goniometric Range of Motion Hip Right Passive Testing Position Supine Straight Leg Raise 85 Abduction 45 Internal Rotation 40 External Rotation 50 Left Passive Testing Position Supine Straight Leg Raise 85 Abduction 45 Internal Rotation 50 External Rotation 65 PT-OP-M Strength Start: 11/02/19 11:26 Freq: Status: Active Protocol: Document 11/02/19 11:28 LRN (Rec: 11/02/19 12:48 LRN [id number]) Trunk Strength Trunk Manual Muscle Testing Reason Not Measured Pain Comments 6 weeks post surgical. Hip Strength Hip Manual Muscle Testing Right Flexion (L2) 3+ Fair+ Abduction 5 Normal Adduction 3 Fair External Rotation 5 Normal Internal Rotation 4 Good Comments Pain in L LB with MMT of hip AD Left Flexion (L2) 5 Normal Abduction 3 Fair Adduction 3- Fair- External Rotation 3+ Fair+ Internal Rotation 5 Normal PT-OP-Q Treatments Start: 11/02/19 11:26 Freq: Status: Active Protocol: Document 11/30/19 08:22 LRN (Rec: 11/30/19 09:50 LRN [id number]) Manual Therapy Treatment Soft Tissue Mobilization Intercostals Body Location L intercostals Mobilization Type Sustained Pressure Body Position Prone Hip ER's Body Location Left Hip ER's at Sacral Border Mobilization Type Strumming,Sustained Pressure Intensity/Depth Moderate Body Position Prone Comments Intensity/Depth: Moderate to Deep. Low back Body Location Upper and low Back Mobilization Type Instrument Assisted,Myofascial Release,Strumming,Sustained Pressure Intensity/Depth Superficial Body Position Prone Comments Use of plunger to scar & upper back. Focus a little more on Upper back. Joint Mobilizations Ribs 5-8 Joint L Ribs 5-8 inferior and superior mob Grade III Body Position Prone Reps/Duration 6' PT-OP-R Modalities Start: 11/02/19 11:26 Freq: Status: Active Protocol: Document 11/30/19 08:22 LRN (Rec: 11/30/19 09:50 LRN [id number]) Electric Stimulation Electric Stimulation Interferential Current (IFC) Body Location Midback Duration (Minutes) 15 Target/Sweep Sweep Patient Position Prone Combined With Heat/Cold Hot Pack Hot Pack/Cold Pack Treatment Hot Pack Location Back Patient Position Prone Treatment Duration (minutes) 15 Comments Used with IFES PT-OP-T Assessment and Plan Start: 11/02/19 11:26 Freq: Status: Active Protocol: Document 11/30/19 08:22 LRN (Rec: 11/30/19 09:50 LRN [id number]) Physical Therapy Assessment Goals Five Impairment Decreased hip mobility with difficulty bending & dressing. Short Term Goal (STG) Pt will be able to bend over in sitting and touch her knees to put lotion on her thighs without pain. STG Duration 12/04/19 (11/19/19: GOAL MET) [facility] Goal (LTG) Pt will be able to bend over to don/doff her pants and socks without minimal difficulty and pain no greater than 1/10. 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 [facility] Goal (LTG) Pt will be able to bend over to picker box operator light objects off the floor without difficulty. LTG Duration 12/04/19 Three Impairment Pt L LBP limiting ability to exercise Short Term Goal (STG) Pt will be able to start a light low level, LE strengthening program without weights. STG Duration 12/04/19 (11/19/19: GOAL MET) [facility] Goal (LTG) Pt will be able to start an independent exercise program of light hand and leg weights for UE/LE strengthening. LTG Duration 01/15/19 (11/19/19: INITIATED) Two Impairment Daily LBP rated 4/10, sometimes sharp in nature limiting walking. Short Term Goal (STG) Decrease LBP at rest to 0/10 without onset of sharp pains. STG Duration 12/04/19 (11/19/19: PROGRESSING ) [facility] Goal (LTG) Pt will be able to walking the grocery store for shopping with pain no greater than 1/10 . LTG Duration 01/31/20 (11/19/19: GOAL MET) One Impairment Pt lacks a self care HEP [facility] Goal (LTG) Pt will be independent in a self care HEP to minimize back pain and allow pt to manage her condition at a tolerable level. LTG Duration 01/31/20 (11/19/19: PROGRESSING) Assessment Summary Assessment Pt did have tightness of Left ribs 5-8 and intercostals. She appeared to have general fascial restriction on the L which improved with STM. Pt very anxious over pain onsets and needs encouragement to allow body to heal. Pt appears to be doing well otherwise. Physical Therapy Plan Frequency and Duration Frequency of Treatment 2x/Week Plan of Care Start Date 11/02/19 Plan of Care End Date 01/31/20 Next Visit Focus/Plan Next Note Type Treatment Note Next Visit Plan Recheck progress towards goals . Assess L upper back pain and response to last PT session with MH/IFES. If tolerated, start with general exer on TM, possibly adding UE strengthening for core stabilization. Try Leg Curl/ Ext, starting knee in flexion, with T-Band. Cont post op rehab of trunk and as needed hip ROM, Surgical scar MFR and STM gluteals & LB/coccyx (L QL & upper back paraspinals). End with cryotherapy unless pt chooses to ice at home.
--- NOTE | 2019-12-03 16:58 | PT.OTN ---
Physical Therapy Treatment Note PT-OP-A Visit Information Start: 11/02/19 11:26 Freq: Status: Active Protocol: Document 12/03/19 08:17 LRN (Rec: 12/03/19 09:08 LRN [id number]) Out-Patient Physical Therapy Visit Information Visit Information Visit Type Treatment Note Visit Start Time 08:17 Visit Stop Time 09:08 Total Visit Minutes 49 Visit Number 9 Number of MANAGER SPEECH Visits 0 Precautions Precautions 09/17/19 Surgery: L5-S1 Postero-lateral & posterior interbody fusion, interbody cage placement, decompressive laminectomy w/bilateral facetecomies, posterior non- segmental instrumentation. [place] of bone marrow form iliac crest. Pt managing muscle spasm and pain with Hydroxyzine & Gabapentin. PT-OP-B Current Condition Start: 11/02/19 11:26 Freq: Status: Active Protocol: Document 11/02/19 11:28 LRN (Rec: 11/02/19 12:48 LRN [id number]) Current Condition History of Current Condition Onset Date 09/17/19 Current Complaints Pain is daily, sudden, occasional sharp pain. History of Current Condition 6 weeks post operative L5-S1 surgery. Pt reports pain is the same as before surgery. States she can't find relief of pain with stretching like she used to. Pain is in the spine with sitting, feels a pinching. She states she is taking nerve medicine and that she was told recovery might take 6 months. When sleeping on the L side she gets numbness and pain from her L greater trochanter to the lateral thigh. Sometimes she presses a tennis ball on her lateral hip to make it feel better. She has been trying to keep her hamstrings flexible so it won't pull on the back. She reports doing stretches daily what she was doing before surgery. Developmental History Developmental History Prior to surgery the pt had intermittent severe L low back pain at SIJ level that did not fully resolve with physical therapy. Treatment Goals Patient/Caregiver Goals Pt's goal is to get rid of the L LB & hip pain. She would like to be able to bend over, touch her knees, do exercise, walk, and shop as exercise. Prior Functional Status Baseline Function- ADL's Independent Baseline Function- Mobility Independent Baseline Function- Work/School Walked 10,000 steps per day Baseline Function- Other Couldn't sit longer than 10-15 ' & couldn't sit on soft chair . Current Functional Impairments (Reported) Functional Limitations- ADL's Not able to walk any length without L LBP & hip pain. Not able to vacuum, lift, bend and pick remover things, can't exercise because can't twist. Cooks but can't lift things. Can't wash leg, has to use long handle scrub. Difficulty carrying her table lamp. Functional Limitations- Mobility/Gait Not able to walking for exercise. Functional Limitations- Other Able to sit for an hour, but sometimes has random sharp pain. Personal Factors Other Personal Factors That May Effect Not able to work at this time. Therapy/Recovery Self employeed with spouse. Has two children, ages 28 and 13. History of depression. PT-OP-C Subjective Start: 11/02/19 11:26 Freq: Status: Active Protocol: Document 12/03/19 08:17 LRN (Rec: 12/03/19 09:08 LRN [id number]) OP-PT Subjective Patient Comments Patient Comments Yesterday having a little cramp in the L upper back and was good yesterday and today just sitting felt the instant sharp pain in the low back. PT-OP-F Manual Assessment Start: 11/02/19 11:26 Freq: Status: Active Protocol: Document 11/02/19 11:28 LRN (Rec: 11/03/19 08:55 LRN [id number]) Manual Assessments Soft Tissue Assessment Soft Tissue Mobility Assessment Decreased soft tissue mobility of the lumbar paraspinals, sacral region, and along well healed scar. Muscle guarding of posterior hip muscles R>L. PT-OP-G Mobility & Gait Start: 11/02/19 11:26 Freq: Status: Active Protocol: Document 11/02/19 11:28 LRN (Rec: 11/03/19 08:55 LRN [id number]) OP Mobility Evaluation Bed Mobility Supine to and from Sit Good log roll technique sit > Supine. Supine > Sit: Pt tried coming to sit with feet still on the plinth. Transfers Sit to Stand Good body mechanics PT-OP-H Neuro Start: 11/02/19 11:26 Freq: Status: Active Protocol: Document 11/02/19 11:28 LRN (Rec: 11/03/19 08:55 LRN [id number]) Sensation Evaluation Gross Sensation Gross Sensation WNL Deep Tendon Reflex & Clonus Assessment Deep Tendon Reflex Bilateral Achilles Deep Tendon Reflex 2+ Normal Bilateral Patellar Deep Tendon Reflex 3+ Normal But Brisk PT-OP-J Posture/Palpation/Skin Start: 11/02/19 11:26 Freq: Status: Active Protocol: Document 11/02/19 11:28 LRN (Rec: 11/03/19 08:55 LRN [id number]) Posture Evaluation Position Standing Evaluation View All positions Knee Posture (L) Genu Recurvatum,(R) Genu Recurvatum Foot Arch (L) Low Arch,(R) No Arch Palpation Assessment Location Lumbar Palpation Location Lower lumbar region Palpation Findings Edema Palpation Details Increased temperature. Sacrum Palpation Location Sacral region Palpation Findings Edema Palpation Details Increased temperature. Skin Assessment Incisional Assessment Incision Appearance/Comments Well healed scar with decreased tissue mobility. PT-OP-K Range of Motion Start: 11/02/19 11:26 Freq: Status: Active Protocol: Document 11/02/19 11:28 LRN (Rec: 11/02/19 12:48 LRN [id number]) Lumbar Spine Range of Motion Lumbar Spine Active Degrees Testing Position Standing Flexion 25 ROM Limitations Soft Tissue Tightness,Pain Comments Post op instructions: No excessive bending, twisting, lifting for 6 weeks. Sitting trunk rotation: 43 degs Right, 52 degs Left. Hip Goniometric Range of Motion Hip Right Passive Testing Position Supine Straight Leg Raise 85 Abduction 45 Internal Rotation 40 External Rotation 50 Left Passive Testing Position Supine Straight Leg Raise 85 Abduction 45 Internal Rotation 50 External Rotation 65 PT-OP-M Strength Start: 11/02/19 11:26 Freq: Status: Active Protocol: Document 11/02/19 11:28 LRN (Rec: 11/02/19 12:48 LRN [id number]) Trunk Strength Trunk Manual Muscle Testing Reason Not Measured Pain Comments 6 weeks post surgical. Hip Strength Hip Manual Muscle Testing Right Flexion (L2) 3+ Fair+ Abduction 5 Normal Adduction 3 Fair External Rotation 5 Normal Internal Rotation 4 Good Comments Pain in L LB with MMT of hip AD Left Flexion (L2) 5 Normal Abduction 3 Fair Adduction 3- Fair- External Rotation 3+ Fair+ Internal Rotation 5 Normal PT-OP-Q Treatments Start: 11/02/19 11:26 Freq: Status: Active Protocol: Document 12/03/19 08:17 LRN (Rec: 12/03/19 09:08 LRN [id number]) Therapeutic Exercises Prone Exercises TA Prone Exercise Name TA/PF contraction training in neutral. TA w/shoulder flex Prone Exercise Name TA w/buzz shoulder flex Reps/Minutes 2' TA w/hip ext Prone Exercise Name TA w/Buzz hip ext Reps/Minutes 2' Manual Therapy Treatment Soft Tissue Mobilization Intercostals Body Location L intercostals Mobilization Type Sustained Pressure Body Position Prone Hip ER's Body Location Left Hip ER's at Sacral Border & Piriformis Mobilization Type Strumming,Sustained Pressure Intensity/Depth Moderate Body Position Prone Comments Intensity/Depth: Moderate to Deep. Joint Mobilizations Ribs 5-8 Joint L Ribs 5-8 inferior and superior mob Grade III Body Position Prone Reps/Duration 3' Self-Care/Home Management Treatment Education Patient Education Home Exercise Program Activities Self-Care/Home Management Activities Pt to do Kegels with TA and for stability with movement. PT-OP-R Modalities Start: 11/02/19 11:26 Freq: Status: Active Protocol: Document 12/03/19 08:17 LRN (Rec: 12/03/19 16:53 LRN [id number]) Electric Stimulation Electric Stimulation Pre-Modulated Body Location Midback Duration (Minutes) 13 Intensity 21 right, 19 left Patient Position Prone Combined With Heat/Cold Hot Pack Hot Pack/Cold Pack Treatment Hot Pack Location Back Patient Position Prone Treatment Duration (minutes) 13 Comments Used with IFES PT-OP-T Assessment and Plan Start: 11/02/19 11:26 Freq: Status: Active Protocol: Document 12/03/19 08:17 LRN (Rec: 12/03/19 09:08 LRN [id number]) Physical Therapy Assessment Goals Five Impairment Decreased hip mobility with difficulty bending & dressing. Short Term Goal (STG) Pt will be able to bend over in sitting and touch her knees to put lotion on her thighs without pain. STG Duration 12/04/19 (11/19/19: GOAL MET) Correction Goal (LTG) Pt will be able to bend over to don/doff her pants and socks without minimal difficulty and pain no greater than 1/10. LTG Duration 01/31/20 (12/03/19: IMPROVING, no pain if move careful) Four Impairment Decreased lumbar mobility limiting ability pick remover objects off the floor. Systems Project Manager Goal (LTG) Pt will be able to bend over to pick remover light objects off the floor without difficulty. LTG Duration 12/04/19 Three Impairment Pt L LBP limiting ability to exercise Short Term Goal (STG) Pt will be able to start a light low level, LE strengthening program without weights. STG Duration 12/04/19 (11/19/19: GOAL MET) Systems Project [employer] Goal (LTG) Pt will be able to start an independent exercise program of light hand and leg weights for UE/LE strengthening. LTG Duration 01/15/19 (11/19/19: INITIATED) Two Impairment Daily LBP rated 4/10, sometimes sharp in nature limiting walking. Short Term Goal (STG) Decrease LBP at rest to 0/10 without onset of sharp pains. STG Duration 12/04/19 (11/19/19: PROGRESSING ) Systems Project [employer] Goal (LTG) Pt will be able to walking the grocery store for shopping with pain no greater than 1/10 . LTG Duration 01/31/20 (11/19/19: GOAL MET) One Impairment Pt lacks a self care HEP Correction Goal (LTG) Pt will be independent in a self care HEP to minimize back pain and allow pt to manage her condition at a tolerable level. LTG Duration 01/31/20 (11/19/19: PROGRESSING) Assessment Summary Assessment + response to MH/premod EX. Ms tone starting to normalize. R Piriformis/Gluts mildly tighter than left. Pt L UB tight because she is self massaging and pressure point treating herself with her LUE. R hip IR slightly less than L. Physical Therapy Plan Frequency and Duration Frequency of Treatment 2x/Week Plan of Care Start Date 11/02/19 Plan of Care End Date 01/31/20 Next Visit Focus/Plan Next Note Type Progress Note Next Visit Plan Recheck progress towards goals . If tolerated, start with general exer on TM, possibly adding UE strengthening for core stabilization. Try Leg Curl/Ext, starting knee in flexion, with T-Band. Cont post op rehab of trunk and as needed hip ROM, Surgical scar MFR and STM gluteals & LB/ coccyx (L QL & upper back paraspinals). End with cryotherapy unless pt chooses to ice at home.
--- NOTE | 2019-12-08 16:50 | PT.OPPOC ---
Physical, Occupational & Speech Therapy At [facility] Visit Care Team Role Provider Type Laura Moran MD Family Provider Physician Primary Care Provider Specialty: Family Practice Address: [address] [place] [address], [facility] [place], [address] Email: [email or web address] Attending Provider Physician Specialty: Orthopedic Surgery Address: [address] [place] [address], [id number] Email: [email or web address] PT-OP-T Assessment and Plan Start: 11/02/19 11:26 Freq: Status: Active Protocol: Document 12/08/19 08:17 LRN (Rec: 12/08/19 09:07 LRN [id number]) Physical Therapy Assessment Rehab Potential Rehabilitation Potential Good Evaluation Complexity Number of Personal Factors/Comorbidities 3 or More Number of Body Systems Impaired 4 or More Clinical Presentation at Evaluation Evolving Impairments Impairments Activity Tolerance,Functional Activities,Functional Mobility ,Pain,ROM,Soft Tissue Mobility ,Strength Other Impairments Positional Tolerance Goals Five Impairment Decreased hip mobility with difficulty bending & dressing. Short Term Goal (STG) Pt will be able to bend over in sitting and touch her knees to put lotion on her thighs without pain. STG Duration 12/04/19 (11/19/19: GOAL MET) Burr Grinder Goal (LTG) Pt will be able to bend over to don/doff her pants and socks without minimal difficulty and pain no greater than 1/10. LTG Duration 01/31/20 (12/03/19: IMPROVING, no pain if move careful) Four Impairment Decreased lumbar mobility limiting ability bead picker objects off the floor. Burr Grinder Goal (LTG) Pt will be able to bend over to bead picker light objects off the floor without difficulty. LTG Duration 12/04/19 (12/08/18: GOAL NOT MET) Three Impairment Pt L LBP limiting ability to exercise Short Term Goal (STG) Pt will be able to start a light low level, LE strengthening program without weights. STG Duration 12/04/19 (11/19/19: GOAL MET) Burr Grinder Goal (LTG) Pt will be able to start an independent exercise program of light hand and leg weights for UE/LE strengthening. LTG Duration 01/15/19 (11/19/19: INITIATED) Two Impairment Daily LBP rated 4/10, sometimes sharp in nature limiting walking. Short Term Goal (STG) Decrease LBP at rest to 0/10 without onset of sharp pains. STG Duration 12/04/19 (11/19/19: PROGRESSING ) Snf Goal (LTG) Pt will be able to walking the grocery store for shopping with pain no greater than 1/10 . LTG Duration 01/31/20 (11/19/19: GOAL MET) One Impairment Pt lacks a self care HEP Snf Goal (LTG) Pt will be independent in a self care HEP to minimize back pain and allow pt to manage her condition at a tolerable level. LTG Duration 01/31/20 (12/08/19: PROGRESSING) Progress Towards Goals Progress Towards Goals Progressing Toward Goals,Slow Progress due to Activity Tolerance Progress Comments Goal 1: Progressing HEP as appropriate. Goal 2: STG: Progressing, pt has occasional pain in LB when moving out of rest position. LTG: GOAL MET. Goal 3: STG: GOAL MET. LTG: Initiated. Goal 4: Goal NOT MET. Goal 5: STG: GOAL MET. LTG: Progressing. Assessment Summary Assessment Pt is ~10 weeks post op L5-S1 surgery for spondylolisthesis and spinal stenosis. Pt pain has overall decreased (rated 1 /10) although pt is anxious over continued concern and fear of LBP onset (initially 4 /10). Functionally she shows improvement per BRIJESH score or 18 (initially 23). Pt is quite restricted with trunk flex due to stiffness and fear of low back pain. Her active trunk flex today is 25 deg's. Hip mobility has improved. The pt will benefit from continuation of physical therapy to progress her towards improved functional mobility and strength. Physical Therapy Plan Frequency and Duration Frequency of Treatment 2x/Week Plan of Care Start Date 11/02/19 Plan of Care End Date 01/31/20 Therapeutic Interventions Therapeutic Interventions Balance Training,Home Exercise Program,Manual Therapy, Neuromuscular Re-education, Patient/Caregiver Education, Self-Care/Home Management,Soft Tissue Mobilization, Therapeutic Exercises Modalities Cold Pack/Ice Massage,Electric Stimulation,Hot Packs Next Visit Focus/Plan Next Note Type Treatment Note Next Visit Plan Focus of therapy the next 4 weeks on improving trunk flexion mobility and decreasing pt fear of bending forward. If tolerated, start with general exer on TM, possibly adding UE strengthening for core stabilization. Try Leg Curl/ Ext, starting knee in flexion, with T-Band. Cont post op rehab of trunk and as needed hip ROM, Surgical scar MFR and STM gluteals & LB/coccyx (L QL & upper back paraspinals). End with cryotherapy unless pt chooses to ice at home. Plan of Care Dates Plan of Care Start Date 11/02/19 Plan of Care End Date 01/31/20 Electronically Signed by: Zoya Mckinley, PT 12/08/19 [id number] Please Sign and Return: I have reviewed this Plan of Care and certify that the skilled therapy services above are required to meet the patient?s needs. Physician Signature Date Printed Name and Credentials Clinical Instructor Signature Printed Name and Credentials
--- NOTE | 2019-12-08 16:50 | PT.OTN ---
Physical Therapy Treatment Note PT-OP-A Visit Information Start: 11/02/19 11:26 Freq: Status: Active Protocol: Document 12/08/19 08:17 LRN (Rec: 12/08/19 09:07 LRN [id number]) Out-Patient Physical Therapy Visit Information Visit Information Visit Type Progress Note Visit Start Time 08:18 Visit Stop Time 09:07 Total Visit Minutes 49 Visit Number 10 Number of BARREL ASSEMBLY INSPECTOR Visits 0 Evaluation Information Evaluation Date 11/02/19 Precautions Precautions 09/17/19 Surgery: L5-S1 Postero-lateral & posterior interbody fusion, interbody cage placement, decompressive laminectomy w/bilateral facetecomies, posterior non- segmental instrumentation. [place] of bone marrow form iliac crest. Pt managing muscle spasm and pain with Hydroxyzine & Gabapentin. PT-OP-B Current Condition Start: 11/02/19 11:26 Freq: Status: Active Protocol: Document 11/02/19 11:28 LRN (Rec: 11/02/19 12:48 LRN [id number]) Current Condition History of Current Condition Onset Date 09/17/19 Current Complaints Pain is daily, sudden, occasional sharp pain. History of Current Condition 6 weeks post operative L5-S1 surgery. Pt reports pain is the same as before surgery. States she can't find relief of pain with stretching like she used to. Pain is in the spine with sitting, feels a pinching. She states she is taking nerve medicine and that she was told recovery might take 6 months. When sleeping on the L side she gets numbness and pain from her L greater trochanter to the lateral thigh. Sometimes she presses a tennis ball on her lateral hip to make it feel better. She has been trying to keep her hamstrings flexible so it won't pull on the back. She reports doing stretches daily what she was doing before surgery. Developmental History Developmental History Prior to surgery the pt had intermittent severe L low back pain at SIJ level that did not fully resolve with physical therapy. Treatment Goals Patient/Caregiver Goals Pt's goal is to get rid of the L LB & hip pain. She would like to be able to bend over, touch her knees, do exercise, walk, and shop as exercise. Prior Functional Status Baseline Function- ADL's Independent Baseline Function- Mobility Independent Baseline Function- Work/School Walked 10,000 steps per day Baseline Function- Other Couldn't sit longer than 10-15 ' & couldn't sit on soft chair . Current Functional Impairments (Reported) Functional Limitations- ADL's Not able to walk any length without L LBP & hip pain. Not able to vacuum, lift, bend and waste picker things, can't exercise because can't twist. Cooks but can't lift things. Can't wash leg, has to use long handle scrub. Difficulty carrying her table lamp. Functional Limitations- Mobility/Gait Not able to walking for exercise. Functional Limitations- Other Able to sit for an hour, but sometimes has random sharp pain. Personal Factors Other Personal Factors That May Effect Not able to work at this time. Therapy/Recovery Self employeed with spouse. Has two children, ages 28 and 13. History of depression. PT-OP-C Subjective Start: 11/02/19 11:26 Freq: Status: Active Protocol: Document 12/08/19 08:17 LRN (Rec: 12/08/19 09:07 LRN [id number]) OP-PT Subjective Patient Comments Patient Comments Did well yesterday until after a dental appt, became more tense after moving fastly upright in dental chair. Feels weak today. Patient Questionnaires Oswestry Low Back Index Oswestry Score 18 Oswestry Impairment 1 to 19% Impaired (Score 1-19) OP-PT Pain Assessment Pain Assessment Grid Paper Pain Assessment Grid Completed Yes Location Left Lower Back Pain Location Details L low back Intensity 1 Scale Used Numeric (1 - 10) PT-OP-F Manual Assessment Start: 11/02/19 11:26 Freq: Status: Active Protocol: Document 11/02/19 11:28 LRN (Rec: 11/03/19 08:55 LRN [id number]) Manual Assessments Soft Tissue Assessment Soft Tissue Mobility Assessment Decreased soft tissue mobility of the lumbar paraspinals, sacral region, and along well healed scar. Muscle guarding of posterior hip muscles R>L. PT-OP-G Mobility & Gait Start: 11/02/19 11:26 Freq: Status: Active Protocol: Document 11/02/19 11:28 LRN (Rec: 11/03/19 08:55 LRN [id number]) OP Mobility Evaluation Bed Mobility Supine to and from Sit Good log roll technique sit > Supine. Supine > Sit: Pt tried coming to sit with feet still on the plinth. Transfers Sit to Stand Good body mechanics PT-OP-H Neuro Start: 11/02/19 11:26 Freq: Status: Active Protocol: Document 11/02/19 11:28 LRN (Rec: 11/03/19 08:55 LRN [id number]) Sensation Evaluation Gross Sensation Gross Sensation WNL Deep Tendon Reflex & Clonus Assessment Deep Tendon Reflex Bilateral Achilles Deep Tendon Reflex 2+ Normal Bilateral Patellar Deep Tendon Reflex 3+ Normal But Brisk PT-OP-J Posture/Palpation/Skin Start: 11/02/19 11:26 Freq: Status: Active Protocol: Document 11/02/19 11:28 LRN (Rec: 11/03/19 08:55 LRN [id number]) Posture Evaluation Position Standing Evaluation View All positions Knee Posture (L) Genu Recurvatum,(R) Genu Recurvatum Foot Arch (L) Low Arch,(R) No Arch Palpation Assessment Location Lumbar Palpation Location Lower lumbar region Palpation Findings Edema Palpation Details Increased temperature. Sacrum Palpation Location Sacral region Palpation Findings Edema Palpation Details Increased temperature. Skin Assessment Incisional Assessment Incision Appearance/Comments Well healed scar with decreased tissue mobility. PT-OP-K Range of Motion Start: 11/02/19 11:26 Freq: Status: Active Protocol: Document 11/02/19 11:28 LRN (Rec: 11/02/19 12:48 LRN [id number]) Lumbar Spine Range of Motion Lumbar Spine Active Degrees Testing Position Standing Flexion 25 ROM Limitations Soft Tissue Tightness,Pain Comments Post op instructions: No excessive bending, twisting, lifting for 6 weeks. Sitting trunk rotation: 43 degs Right, 52 degs Left. Hip Goniometric Range of Motion Hip Right Passive Testing Position Supine Straight Leg Raise 85 Abduction 45 Internal Rotation 40 External Rotation 50 Left Passive Testing Position Supine Straight Leg Raise 85 Abduction 45 Internal Rotation 50 External Rotation 65 PT-OP-M Strength Start: 11/02/19 11:26 Freq: Status: Active Protocol: Document 11/02/19 11:28 LRN (Rec: 11/02/19 12:48 LRN [id number]) Trunk Strength Trunk Manual Muscle Testing Reason Not Measured Pain Comments 6 weeks post surgical. Hip Strength Hip Manual Muscle Testing Right Flexion (L2) 3+ Fair+ Abduction 5 Normal Adduction 3 Fair External Rotation 5 Normal Internal Rotation 4 Good Comments Pain in L LB with MMT of hip AD Left Flexion (L2) 5 Normal Abduction 3 Fair Adduction 3- Fair- External Rotation 3+ Fair+ Internal Rotation 5 Normal PT-OP-Q Treatments Start: 11/02/19 11:26 Freq: Status: Active Protocol: Document 12/08/19 08:17 LRN (Rec: 12/08/19 09:07 LRN [id number]) Therapeutic Exercises Supine Exercises Bridge Supine Exercise Name Bridging Reps/Minutes 3' Comments Manual assist with cuing to Quadriceps Prone Exercises TA w/shoulder flex Prone Exercise Name TA w/buzz shoulder flex Reps/Minutes 15x Comments Extra time taken for proper positioning & movement TA w/hip ext Prone Exercise Name TA w/Buzz hip ext Reps/Minutes 5 S hold, 10x each Sidelying Exercises Clamshell Sidelying Exercise Name Clamshell Side bilateral Reps/Minutes 15x 2 Manual Therapy Treatment Soft Tissue Mobilization Hip ER's Body Location Left Hip ER's at Sacral Border & Piriformis Mobilization Type Strumming,Sustained Pressure Intensity/Depth Moderate Body Position Prone Comments Intensity/Depth: Moderate to Deep. PT-OP-R Modalities Start: 11/02/19 11:26 Freq: Status: Active Protocol: Document 12/03/19 08:17 LRN (Rec: 12/03/19 16:53 LRN [id number]) Electric Stimulation Electric Stimulation Pre-Modulated Body Location Midback Duration (Minutes) 13 Intensity 21 right, 19 left Patient Position Prone Combined With Heat/Cold Hot Pack Hot Pack/Cold Pack Treatment Hot Pack Location Back Patient Position Prone Treatment Duration (minutes) 13 Comments Used with IFES PT-OP-T Assessment and Plan Start: 11/02/19 11:26 Freq: Status: Active Protocol: Document 12/08/19 08:17 LRN (Rec: 12/08/19 09:07 LRN [id number]) Physical Therapy Assessment Rehab Potential Rehabilitation Potential Good Evaluation Complexity Number of Personal Factors/Comorbidities 3 or More Number of Body Systems Impaired 4 or More Clinical Presentation at Evaluation Evolving Impairments Impairments Activity Tolerance,Functional Activities,Functional Mobility ,Pain,ROM,Soft Tissue Mobility ,Strength Other Impairments Positional Tolerance Goals Five Impairment Decreased hip mobility with difficulty bending & dressing. Short Term Goal (STG) Pt will be able to bend over in sitting and touch her knees to put lotion on her thighs without pain. STG Duration 12/04/19 (11/19/19: GOAL MET) Information Officer Goal (LTG) Pt will be able to bend over to don/doff her pants and socks without minimal difficulty and pain no greater than 1/10. LTG Duration 01/31/20 (12/03/19: IMPROVING, no pain if move careful) Four Impairment Decreased lumbar mobility limiting ability waste picker objects off the floor. Usp Goal (LTG) Pt will be able to bend over to waste picker light objects off the floor without difficulty. LTG Duration 12/04/19 (12/08/18: GOAL NOT MET) Three Impairment Pt L LBP limiting ability to exercise Short Term Goal (STG) Pt will be able to start a light low level, LE strengthening program without weights. STG Duration 12/04/19 (11/19/19: GOAL MET) Information Officer Goal (LTG) Pt will be able to start an independent exercise program of light hand and leg weights for UE/LE strengthening. LTG Duration 01/15/19 (11/19/19: INITIATED) Two Impairment Daily LBP rated 4/10, sometimes sharp in nature limiting walking. Short Term Goal (STG) Decrease LBP at rest to 0/10 without onset of sharp pains. STG Duration 12/04/19 (11/19/19: PROGRESSING ) Information Officer Goal (LTG) Pt will be able to walking the grocery store for shopping with pain no greater than 1/10 . LTG Duration 01/31/20 (11/19/19: GOAL MET) One Impairment Pt lacks a self care HEP Usp Goal (LTG) Pt will be independent in a self care HEP to minimize back pain and allow pt to manage her condition at a tolerable level. LTG Duration 01/31/20 (12/08/19: PROGRESSING) Progress Towards Goals Progress Towards Goals Progressing Toward Goals,Slow Progress due to Activity Tolerance Progress Comments Goal 1: Progressing HEP as appropriate. Goal 2: STG: Progressing, pt has occasional pain in LB when moving out of rest position. LTG: GOAL MET. Goal 3: STG: GOAL MET. LTG: Initiated. Goal 4: Goal NOT MET. Goal 5: STG: GOAL MET. LTG: Progressing. Assessment Summary Assessment Pt is ~10 weeks post op L5-S1 surgery for spondylolisthesis and spinal stenosis. Pt pain has overall decreased (rated 1 /10) although pt is anxious over continued concern and fear of LBP onset (initially 4 /10). Functionally she shows improvement per BRIJESH score or 18 (initially 23). Pt is quite restricted with trunk flex due to stiffness and fear of low back pain. Her active trunk flex today is 25 deg's. Hip mobility has improved. The pt will benefit from continuation of physical therapy to progress her towards improved functional mobility and strength. Physical Therapy Plan Frequency and Duration Frequency of Treatment 2x/Week Plan of Care Start Date 11/02/19 Plan of Care End Date 01/31/20 Therapeutic Interventions Therapeutic Interventions Balance Training,Home Exercise Program,Manual Therapy, Neuromuscular Re-education, Patient/Caregiver Education, Self-Care/Home Management,Soft Tissue Mobilization, Therapeutic Exercises Modalities Cold Pack/Ice Massage,Electric Stimulation,Hot Packs Next Visit Focus/Plan Next Note Type Treatment Note Next Visit Plan Focus of therapy the next 4 weeks on improving trunk flexion mobility and decreasing pt fear of bending forward. If tolerated, start with general exer on TM, possibly adding UE strengthening for core stabilization. Try Leg Curl/ Ext, starting knee in flexion, with T-Band. Cont post op rehab of trunk and as needed hip ROM, Surgical scar MFR and STM gluteals & LB/coccyx (L QL & upper back paraspinals). End with cryotherapy unless pt chooses to ice at home.
--- NOTE | 2019-12-10 17:21 | PT.OTN ---
Physical Therapy Treatment Note PT-OP-A Visit Information Start: 11/02/19 11:26 Freq: Status: Active Protocol: Document 12/10/19 08:21 LRN (Rec: 12/10/19 09:05 LRN [id number]) Out-Patient Physical Therapy Visit Information Visit Information Visit Type Treatment Note Visit Start Time 08:21 Visit Stop Time 09:10 Total Visit Minutes 49 Visit Number 11 Number of DRESSMAKER GARMENT FITTER Visits 0 Evaluation Information Evaluation Date 11/02/19 Precautions Precautions 09/17/19 Surgery: L5-S1 Postero-lateral & posterior interbody fusion, interbody cage placement, decompressive laminectomy w/bilateral facetecomies, posterior non- segmental instrumentation. [place] of bone marrow form iliac crest. Pt managing muscle spasm and pain with Hydroxyzine & Gabapentin. PT-OP-B Current Condition Start: 11/02/19 11:26 Freq: Status: Active Protocol: Document 11/02/19 11:28 LRN (Rec: 11/02/19 12:48 LRN [id number]) Current Condition History of Current Condition Onset Date 09/17/19 Current Complaints Pain is daily, sudden, occasional sharp pain. History of Current Condition 6 weeks post operative L5-S1 surgery. Pt reports pain is the same as before surgery. States she can't find relief of pain with stretching like she used to. Pain is in the spine with sitting, feels a pinching. She states she is taking nerve medicine and that she was told recovery might take 6 months. When sleeping on the L side she gets numbness and pain from her L greater trochanter to the lateral thigh. Sometimes she presses a tennis ball on her lateral hip to make it feel better. She has been trying to keep her hamstrings flexible so it won't pull on the back. She reports doing stretches daily what she was doing before surgery. Developmental History Developmental History Prior to surgery the pt had intermittent severe L low back pain at SIJ level that did not fully resolve with physical therapy. Treatment Goals Patient/Caregiver Goals Pt's goal is to get rid of the L LB & hip pain. She would like to be able to bend over, touch her knees, do exercise, walk, and shop as exercise. Prior Functional Status Baseline Function- ADL's Independent Baseline Function- Mobility Independent Baseline Function- Work/School Walked 10,000 steps per day Baseline Function- Other Couldn't sit longer than 10-15 ' & couldn't sit on soft chair . Current Functional Impairments (Reported) Functional Limitations- ADL's Not able to walk any length without L LBP & hip pain. Not able to vacuum, lift, bend and sweet pickle maker things, can't exercise because can't twist. Cooks but can't lift things. Can't wash leg, has to use long handle scrub. Difficulty carrying her table lamp. Functional Limitations- Mobility/Gait Not able to walking for exercise. Functional Limitations- Other Able to sit for an hour, but sometimes has random sharp pain. Personal Factors Other Personal Factors That May Effect Not able to work at this time. Therapy/Recovery Self employeed with spouse. Has two children, ages 28 and 13. History of depression. PT-OP-C Subjective Start: 11/02/19 11:26 Freq: Status: Active Protocol: Document 12/10/19 08:21 LRN (Rec: 12/10/19 09:05 LRN [id number]) OP-PT Subjective Patient Comments Patient Comments States she was doing good until 5' ago. [place] something quickly shift, (indicating R PSIS location) without pain. PT-OP-F Manual Assessment Start: 11/02/19 11:26 Freq: Status: Active Protocol: Document 11/02/19 11:28 LRN (Rec: 11/03/19 08:55 LRN [id number]) Manual Assessments Soft Tissue Assessment Soft Tissue Mobility Assessment Decreased soft tissue mobility of the lumbar paraspinals, sacral region, and along well healed scar. Muscle guarding of posterior hip muscles R>L. PT-OP-G Mobility & Gait Start: 11/02/19 11:26 Freq: Status: Active Protocol: Document 11/02/19 11:28 LRN (Rec: 11/03/19 08:55 LRN [id number]) OP Mobility Evaluation Bed Mobility Supine to and from Sit Good log roll technique sit > Supine. Supine > Sit: Pt tried coming to sit with feet still on the plinth. Transfers Sit to Stand Good body mechanics PT-OP-H Neuro Start: 11/02/19 11:26 Freq: Status: Active Protocol: Document 11/02/19 11:28 LRN (Rec: 11/03/19 08:55 LRN [id number]) Sensation Evaluation Gross Sensation Gross Sensation WNL Deep Tendon Reflex & Clonus Assessment Deep Tendon Reflex Bilateral Achilles Deep Tendon Reflex 2+ Normal Bilateral Patellar Deep Tendon Reflex 3+ Normal But Brisk PT-OP-J Posture/Palpation/Skin Start: 11/02/19 11:26 Freq: Status: Active Protocol: Document 11/02/19 11:28 LRN (Rec: 11/03/19 08:55 LRN [id number]) Posture Evaluation Position Standing Evaluation View All positions Knee Posture (L) Genu Recurvatum,(R) Genu Recurvatum Foot Arch (L) Low Arch,(R) No Arch Palpation Assessment Location Lumbar Palpation Location Lower lumbar region Palpation Findings Edema Palpation Details Increased temperature. Sacrum Palpation Location Sacral region Palpation Findings Edema Palpation Details Increased temperature. Skin Assessment Incisional Assessment Incision Appearance/Comments Well healed scar with decreased tissue mobility. PT-OP-K Range of Motion Start: 11/02/19 11:26 Freq: Status: Active Protocol: Document 11/02/19 11:28 LRN (Rec: 11/02/19 12:48 LRN [id number]) Lumbar Spine Range of Motion Lumbar Spine Active Degrees Testing Position Standing Flexion 25 ROM Limitations Soft Tissue Tightness,Pain Comments Post op instructions: No excessive bending, twisting, lifting for 6 weeks. Sitting trunk rotation: 43 degs Right, 52 degs Left. Hip Goniometric Range of Motion Hip Right Passive Testing Position Supine Straight Leg Raise 85 Abduction 45 Internal Rotation 40 External Rotation 50 Left Passive Testing Position Supine Straight Leg Raise 85 Abduction 45 Internal Rotation 50 External Rotation 65 PT-OP-M Strength Start: 11/02/19 11:26 Freq: Status: Active Protocol: Document 11/02/19 11:28 LRN (Rec: 11/02/19 12:48 LRN [id number]) Trunk Strength Trunk Manual Muscle Testing Reason Not Measured Pain Comments 6 weeks post surgical. Hip Strength Hip Manual Muscle Testing Right Flexion (L2) 3+ Fair+ Abduction 5 Normal Adduction 3 Fair External Rotation 5 Normal Internal Rotation 4 Good Comments Pain in L LB with MMT of hip AD Left Flexion (L2) 5 Normal Abduction 3 Fair Adduction 3- Fair- External Rotation 3+ Fair+ Internal Rotation 5 Normal PT-OP-Q Treatments Start: 11/02/19 11:26 Freq: Status: Active Protocol: Document 12/10/19 08:21 LRN (Rec: 12/10/19 09:05 LRN [id number]) Cardio Equipment Treadmill Duration (Minutes) 3 Speed 1.2 Incline 0 Therapeutic Exercises Other Exercises Trunk Flex Other Exercise Name Trunk Flex stretch top down Reps/Minutes 10x @ pt speed, 10s @ 10 S holds Comments Pt needed training for stretching. Gait Training Gait Activity Stepping forward RLE Description Core stabilitly & training Pelvic rotation R stepping forward L LE. Distance/Duration 30' Treatment Focus Limiting pelvic rotation with gait for trunk stability. Comments Pt needed extra time with training for gait mechanics to improve core/pelvic stability . PT-OP-R Modalities Start: 11/02/19 11:26 Freq: Status: Active Protocol: Document 12/10/19 08:21 LRN (Rec: 12/10/19 09:14 LRN [id number]) Hot Pack/Cold Pack Treatment Cold Pack Location Low Back Patient Position Supine Treatment Duration (minutes) 10 Patient Tolerance Good PT-OP-T Assessment and Plan Start: 11/02/19 11:26 Freq: Status: Active Protocol: Document 12/10/19 08:21 LRN (Rec: 12/10/19 09:05 LRN [id number]) Physical Therapy Assessment Goals Five Impairment Decreased hip mobility with difficulty bending & dressing. Short Term Goal (STG) Pt will be able to bend over in sitting and touch her knees to put lotion on her thighs without pain. STG Duration 12/04/19 (11/19/19: GOAL MET) Shot Dropper Goal (LTG) Pt will be able to bend over to don/doff her pants and socks without minimal difficulty and pain no greater than 1/10. LTG Duration 01/31/20 (12/03/19: IMPROVING, no pain if move careful) Four Impairment Decreased lumbar mobility limiting ability sweet pickle maker objects off the floor. Assisted Goal (LTG) Pt will be able to bend over to sweet pickle maker light objects off the floor without difficulty. LTG Duration 12/04/19 (12/08/18: GOAL NOT MET) Three Impairment Pt L LBP limiting ability to exercise Short Term Goal (STG) Pt will be able to start a light low level, LE strengthening program without weights. STG Duration 12/04/19 (11/19/19: GOAL MET) Shot Dropper Goal (LTG) Pt will be able to start an independent exercise program of light hand and leg weights for UE/LE strengthening. LTG Duration 01/15/19 (11/19/19: INITIATED) Two Impairment Daily LBP rated 4/10, sometimes sharp in nature limiting walking. Short Term Goal (STG) Decrease LBP at rest to 0/10 without onset of sharp pains. STG Duration 12/04/19 (11/19/19: PROGRESSING ) Shot Dropper Goal (LTG) Pt will be able to walking the grocery store for shopping with pain no greater than 1/10 . LTG Duration 01/31/20 (11/19/19: GOAL MET) One Impairment Pt lacks a self care HEP Assisted Goal (LTG) Pt will be independent in a self care HEP to minimize back pain and allow pt to manage her condition at a tolerable level. LTG Duration 01/31/20 (12/08/19: PROGRESSING) Assessment Summary Assessment Pt is very tight in trunk extensors and very limited with trunk forward flexion. With gait she shows excessive pelvic rotation L when advancing the R LE, pt is not able to maintain core stability. Physical Therapy Plan Frequency and Duration Frequency of Treatment 2x/Week Plan of Care Start Date 11/02/19 Plan of Care End Date 01/31/20 Next Visit Focus/Plan Next Note Type Treatment Note Next Visit Plan Focus of therapy the next 3 weeks on improving trunk flexion mobility, gait mechanics and decreasing pt fear of bending forward. If tolerated, start with general exer on TM. After ex warm up MFR to T/S and L/S paraspinal to improve flexion mobility. Progress towards Leg Curl/Ext, starting knee in flexion, with T-Band. Cont post op rehab of trunk and as needed hip ROM, Surgical scar MFR and STM gluteals & LB/coccyx (L QL & upper back paraspinals). End with cryotherapy unless pt chooses to ice at home.
--- NOTE | 2019-12-15 09:17 | PT.OTN ---
Physical Therapy Treatment Note PT-OP-A Visit Information Start: 11/02/19 11:26 Freq: Status: Active Protocol: Document 12/15/19 08:19 LRN (Rec: 12/15/19 09:14 LRN [id number]) Out-Patient Physical Therapy Visit Information Visit Information Visit Type Treatment Note Visit Start Time 08:19 Visit Stop Time 09:07 Total Visit Minutes 48 Visit Number 12 Number of ANILINE PRESS WORKER Visits 0 Evaluation Information Evaluation Date 11/02/19 Precautions Precautions 09/17/19 Surgery: L5-S1 Postero-lateral & posterior interbody fusion, interbody cage placement, decompressive laminectomy w/bilateral facetecomies, posterior non- segmental instrumentation. [place] of bone marrow form iliac crest. Pt managing muscle spasm and pain with Hydroxyzine & Gabapentin. PT-OP-B Current Condition Start: 11/02/19 11:26 Freq: Status: Active Protocol: Document 11/02/19 11:28 LRN (Rec: 11/02/19 12:48 LRN [id number]) Current Condition History of Current Condition Onset Date 09/17/19 Current Complaints Pain is daily, sudden, occasional sharp pain. History of Current Condition 6 weeks post operative L5-S1 surgery. Pt reports pain is the same as before surgery. States she can't find relief of pain with stretching like she used to. Pain is in the spine with sitting, feels a pinching. She states she is taking nerve medicine and that she was told recovery might take 6 months. When sleeping on the L side she gets numbness and pain from her L greater trochanter to the lateral thigh. Sometimes she presses a tennis ball on her lateral hip to make it feel better. She has been trying to keep her hamstrings flexible so it won't pull on the back. She reports doing stretches daily what she was doing before surgery. Developmental History Developmental History Prior to surgery the pt had intermittent severe L low back pain at SIJ level that did not fully resolve with physical therapy. Treatment Goals Patient/Caregiver Goals Pt's goal is to get rid of the L LB & hip pain. She would like to be able to bend over, touch her knees, do exercise, walk, and shop as exercise. Prior Functional Status Baseline Function- ADL's Independent Baseline Function- Mobility Independent Baseline Function- Work/School Walked 10,000 steps per day Baseline Function- Other Couldn't sit longer than 10-15 ' & couldn't sit on soft chair . Current Functional Impairments (Reported) Functional Limitations- ADL's Not able to walk any length without L LBP & hip pain. Not able to vacuum, lift, bend and draft roller picker things, can't exercise because can't twist. Cooks but can't lift things. Can't wash leg, has to use long handle scrub. Difficulty carrying her table lamp. Functional Limitations- Mobility/Gait Not able to walking for exercise. Functional Limitations- Other Able to sit for an hour, but sometimes has random sharp pain. Personal Factors Other Personal Factors That May Effect Not able to work at this time. Therapy/Recovery Self employeed with spouse. Has two children, ages 28 and 13. History of depression. PT-OP-C Subjective Start: 11/02/19 11:26 Freq: Status: Active Protocol: Document 12/15/19 08:19 LRN (Rec: 12/15/19 09:14 LRN [id number]) OP-PT Subjective Patient Comments Patient Comments States having a jolt once a day. States when she loosens up (stretching arms, back, legs) she feels better. PT-OP-F Manual Assessment Start: 11/02/19 11:26 Freq: Status: Active Protocol: Document 11/02/19 11:28 LRN (Rec: 11/03/19 08:55 LRN [id number]) Manual Assessments Soft Tissue Assessment Soft Tissue Mobility Assessment Decreased soft tissue mobility of the lumbar paraspinals, sacral region, and along well healed scar. Muscle guarding of posterior hip muscles R>L. PT-OP-G Mobility & Gait Start: 11/02/19 11:26 Freq: Status: Active Protocol: Document 11/02/19 11:28 LRN (Rec: 11/03/19 08:55 LRN [id number]) OP Mobility Evaluation Bed Mobility Supine to and from Sit Good log roll technique sit > Supine. Supine > Sit: Pt tried coming to sit with feet still on the plinth. Transfers Sit to Stand Good body mechanics PT-OP-H Neuro Start: 11/02/19 11:26 Freq: Status: Active Protocol: Document 11/02/19 11:28 LRN (Rec: 11/03/19 08:55 LRN [id number]) Sensation Evaluation Gross Sensation Gross Sensation WNL Deep Tendon Reflex & Clonus Assessment Deep Tendon Reflex Bilateral Achilles Deep Tendon Reflex 2+ Normal Bilateral Patellar Deep Tendon Reflex 3+ Normal But Brisk PT-OP-J Posture/Palpation/Skin Start: 11/02/19 11:26 Freq: Status: Active Protocol: Document 11/02/19 11:28 LRN (Rec: 11/03/19 08:55 LRN [id number]) Posture Evaluation Position Standing Evaluation View All positions Knee Posture (L) Genu Recurvatum,(R) Genu Recurvatum Foot Arch (L) Low Arch,(R) No Arch Palpation Assessment Location Lumbar Palpation Location Lower lumbar region Palpation Findings Edema Palpation Details Increased temperature. Sacrum Palpation Location Sacral region Palpation Findings Edema Palpation Details Increased temperature. Skin Assessment Incisional Assessment Incision Appearance/Comments Well healed scar with decreased tissue mobility. PT-OP-K Range of Motion Start: 11/02/19 11:26 Freq: Status: Active Protocol: Document 11/02/19 11:28 LRN (Rec: 11/02/19 12:48 LRN [id number]) Lumbar Spine Range of Motion Lumbar Spine Active Degrees Testing Position Standing Flexion 25 ROM Limitations Soft Tissue Tightness,Pain Comments Post op instructions: No excessive bending, twisting, lifting for 6 weeks. Sitting trunk rotation: 43 degs Right, 52 degs Left. Hip Goniometric Range of Motion Hip Right Passive Testing Position Supine Straight Leg Raise 85 Abduction 45 Internal Rotation 40 External Rotation 50 Left Passive Testing Position Supine Straight Leg Raise 85 Abduction 45 Internal Rotation 50 External Rotation 65 PT-OP-M Strength Start: 11/02/19 11:26 Freq: Status: Active Protocol: Document 11/02/19 11:28 LRN (Rec: 11/02/19 12:48 LRN [id number]) Trunk Strength Trunk Manual Muscle Testing Reason Not Measured Pain Comments 6 weeks post surgical. Hip Strength Hip Manual Muscle Testing Right Flexion (L2) 3+ Fair+ Abduction 5 Normal Adduction 3 Fair External Rotation 5 Normal Internal Rotation 4 Good Comments Pain in L LB with MMT of hip AD Left Flexion (L2) 5 Normal Abduction 3 Fair Adduction 3- Fair- External Rotation 3+ Fair+ Internal Rotation 5 Normal PT-OP-Q Treatments Start: 11/02/19 11:26 Freq: Status: Active Protocol: Document 12/15/19 08:19 LRN (Rec: 12/15/19 09:14 LRN [id number]) Cardio Equipment Treadmill Duration (Minutes) 8 Speed 1.2, 1.6 Other 4' @1.2, 4'@ 1.6 speed. Therapeutic Exercises Supine Exercises DKTC Supine Exercise Name DKTC Reps/Minutes 2' LE Hamstring/neural stretch Supine Exercise Name Hamstring/LE neural stretch Side bilateral Reps/Minutes 4' Comments Low tolerance on L side. Bridge Supine Exercise Name Bridging Reps/Minutes 2' for 10reps Comments Manual assist with cuing to Quadriceps Manual Therapy Treatment Soft Tissue Mobilization Low back Body Location Upper and low Back Mobilization Type Instrument Assisted,Myofascial Release,Rolling,Strumming Intensity/Depth Superficial Body Position Prone Comments Use of plunger to scar & upper back. Focus a little more on Upper back. PT-OP-R Modalities Start: 11/02/19 11:26 Freq: Status: Active Protocol: Document 12/10/19 08:21 LRN (Rec: 12/10/19 09:14 LRN [id number]) Hot Pack/Cold Pack Treatment Cold Pack Location Low Back Patient Position Supine Treatment Duration (minutes) 10 Patient Tolerance Good PT-OP-T Assessment and Plan Start: 11/02/19 11:26 Freq: Status: Active Protocol: Document 12/15/19 08:19 LRN (Rec: 12/15/19 09:14 LRN [id number]) Physical Therapy Assessment Goals Five Impairment Decreased hip mobility with difficulty bending & dressing. Short Term Goal (STG) Pt will be able to bend over in sitting and touch her knees to put lotion on her thighs without pain. STG Duration 12/04/19 (11/19/19: GOAL MET) Longterm Goal (LTG) Pt will be able to bend over to don/doff her pants and socks without minimal difficulty and pain no greater than 1/10. LTG Duration 01/31/20 (12/03/19: IMPROVING, no pain if move careful) Four Impairment Decreased lumbar mobility limiting ability draft roller picker objects off the floor. Childbirth And Infant Care Teacher Goal (LTG) Pt will be able to bend over to draft roller picker light objects off the floor without difficulty. LTG Duration 12/04/19 (12/08/18: GOAL NOT MET) Three Impairment Pt L LBP limiting ability to exercise Short Term Goal (STG) Pt will be able to start a light low level, LE strengthening program without weights. STG Duration 12/04/19 (11/19/19: GOAL MET) Childbirth And Infant Care Teacher Goal (LTG) Pt will be able to start an independent exercise program of light hand and leg weights for UE/LE strengthening. LTG Duration 01/15/19 (11/19/19: INITIATED) Two Impairment Daily LBP rated 4/10, sometimes sharp in nature limiting walking. Short Term Goal (STG) Decrease LBP at rest to 0/10 without onset of sharp pains. STG Duration 12/04/19 (11/19/19: PROGRESSING ) Childbirth And Infant Care Teacher Goal (LTG) Pt will be able to walking the grocery store for shopping with pain no greater than 1/10 . LTG Duration 01/31/20 (11/19/19: GOAL MET) One Impairment Pt lacks a self care HEP Longterm Goal (LTG) Pt will be independent in a self care HEP to minimize back pain and allow pt to manage her condition at a tolerable level. LTG Duration 01/31/20 (12/08/19: PROGRESSING) Progress Towards Goals Progress Towards Goals Progressing Toward Goals,Slow Progress due to Activity Tolerance Progress Comments Goal 1: Progressing HEP as appropriate. Goal 2: STG: Progressing, pt has occasional pain in LB when moving out of rest position. LTG: GOAL MET. Goal 3: STG: GOAL MET. LTG: Initiated. Goal 4: Goal NOT MET. Goal 5: STG: GOAL MET. LTG: Progressing. Assessment Summary Assessment Pt moves extemely slow and cautious. She is tight in her trunk extensors and fascia. Further STM needed. Did not assess gait for core stability from excessive pelvic rotation L when advancing the R LE. Physical Therapy Plan Frequency and Duration Frequency of Treatment 2x/Week Plan of Care Start Date 11/02/19 Plan of Care End Date 01/31/20 Next Visit Focus/Plan Next Note Type Treatment Note Next Visit Plan Focus of therapy the next 2 weeks on improving trunk flexion mobility, gait mechanics (core stability from excessive pelvic rotation L when advancing the R LE) and decreasing pt fear of bending forward. Start with general exer on TM. After ex warm up MFR to T/S and L/S paraspinal to improve flexion mobility. Gait training for core stability from excessive pelvic rotation L when advancing the R LE. Progress towards Leg Curl/Ext, starting knee in flexion, with T-Band. Cont post op rehab of trunk and as needed hip ROM. End with cryotherapy as needed.
--- NOTE | 2019-12-17 10:24 | PT.OTN ---
Physical Therapy Treatment Note PT-OP-A Visit Information Start: 11/02/19 11:26 Freq: Status: Active Protocol: Document 12/17/19 08:31 LRN (Rec: 12/17/19 09:10 LRN [id number]) Out-Patient Physical Therapy Visit Information Visit Information Visit Type Treatment Note Visit Start Time 08:21 Visit Stop Time 09:06 Total Visit Minutes 45 Visit Number 13 Number of PLANT OPERATIONS COORDINATOR Visits 0 Evaluation Information Evaluation Date 11/02/19 Precautions Precautions 09/17/19 Surgery: L5-S1 Postero-lateral & posterior interbody fusion, interbody cage placement, decompressive laminectomy w/bilateral facetecomies, posterior non- segmental instrumentation. [place] of bone marrow form iliac crest. Pt managing muscle spasm and pain with Hydroxyzine & Gabapentin. PT-OP-B Current Condition Start: 11/02/19 11:26 Freq: Status: Active Protocol: Document 11/02/19 11:28 LRN (Rec: 11/02/19 12:48 LRN [id number]) Current Condition History of Current Condition Onset Date 09/17/19 Current Complaints Pain is daily, sudden, occasional sharp pain. History of Current Condition 6 weeks post operative L5-S1 surgery. Pt reports pain is the same as before surgery. States she can't find relief of pain with stretching like she used to. Pain is in the spine with sitting, feels a pinching. She states she is taking nerve medicine and that she was told recovery might take 6 months. When sleeping on the L side she gets numbness and pain from her L greater trochanter to the lateral thigh. Sometimes she presses a tennis ball on her lateral hip to make it feel better. She has been trying to keep her hamstrings flexible so it won't pull on the back. She reports doing stretches daily what she was doing before surgery. Developmental History Developmental History Prior to surgery the pt had intermittent severe L low back pain at SIJ level that did not fully resolve with physical therapy. Treatment Goals Patient/Caregiver Goals Pt's goal is to get rid of the L LB & hip pain. She would like to be able to bend over, touch her knees, do exercise, walk, and shop as exercise. Prior Functional Status Baseline Function- ADL's Independent Baseline Function- Mobility Independent Baseline Function- Work/School Walked 10,000 steps per day Baseline Function- Other Couldn't sit longer than 10-15 ' & couldn't sit on soft chair . Current Functional Impairments (Reported) Functional Limitations- ADL's Not able to walk any length without L LBP & hip pain. 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 Cooks but can't lift things. Can't wash leg, has to use long handle scrub. Difficulty carrying her table lamp. Functional Limitations- Mobility/Gait Not able to walking for exercise. Functional Limitations- Other Able to sit for an hour, but sometimes has random sharp pain. Personal Factors Other Personal Factors That May Effect Not able to work at this time. Therapy/Recovery Self employeed with spouse. Has two children, ages 28 and 13. History of depression. PT-OP-C Subjective Start: 11/02/19 11:26 Freq: Status: Active Protocol: Document 12/17/19 08:31 LRN (Rec: 12/17/19 09:10 LRN [id number]) OP-PT Subjective Patient Comments Patient Comments States she was able to sit 3 hrs yesterday without back pain. Today doing fine. PT-OP-F Manual Assessment Start: 11/02/19 11:26 Freq: Status: Active Protocol: Document 11/02/19 11:28 LRN (Rec: 11/03/19 08:55 LRN [id number]) Manual Assessments Soft Tissue Assessment Soft Tissue Mobility Assessment Decreased soft tissue mobility of the lumbar paraspinals, sacral region, and along well healed scar. Muscle guarding of posterior hip muscles R>L. PT-OP-G Mobility & Gait Start: 11/02/19 11:26 Freq: Status: Active Protocol: Document 11/02/19 11:28 LRN (Rec: 11/03/19 08:55 LRN [id number]) OP Mobility Evaluation Bed Mobility Supine to and from Sit Good log roll technique sit > Supine. Supine > Sit: Pt tried coming to sit with feet still on the plinth. Transfers Sit to Stand Good body mechanics PT-OP-H Neuro Start: 11/02/19 11:26 Freq: Status: Active Protocol: Document 11/02/19 11:28 LRN (Rec: 11/03/19 08:55 LRN [id number]) Sensation Evaluation Gross Sensation Gross Sensation WNL Deep Tendon Reflex & Clonus Assessment Deep Tendon Reflex Bilateral Achilles Deep Tendon Reflex 2+ Normal Bilateral Patellar Deep Tendon Reflex 3+ Normal But Brisk PT-OP-J Posture/Palpation/Skin Start: 11/02/19 11:26 Freq: Status: Active Protocol: Document 11/02/19 11:28 LRN (Rec: 11/03/19 08:55 LRN [id number]) Posture Evaluation Position Standing Evaluation View All positions Knee Posture (L) Genu Recurvatum,(R) Genu Recurvatum Foot Arch (L) Low Arch,(R) No Arch Palpation Assessment Location Lumbar Palpation Location Lower lumbar region Palpation Findings Edema Palpation Details Increased temperature. Sacrum Palpation Location Sacral region Palpation Findings Edema Palpation Details Increased temperature. Skin Assessment Incisional Assessment Incision Appearance/Comments Well healed scar with decreased tissue mobility. PT-OP-K Range of Motion Start: 11/02/19 11:26 Freq: Status: Active Protocol: Document 11/02/19 11:28 LRN (Rec: 11/02/19 12:48 LRN [id number]) Lumbar Spine Range of Motion Lumbar Spine Active Degrees Testing Position Standing Flexion 25 ROM Limitations Soft Tissue Tightness,Pain Comments Post op instructions: No excessive bending, twisting, lifting for 6 weeks. Sitting trunk rotation: 43 degs Right, 52 degs Left. Hip Goniometric Range of Motion Hip Right Passive Testing Position Supine Straight Leg Raise 85 Abduction 45 Internal Rotation 40 External Rotation 50 Left Passive Testing Position Supine Straight Leg Raise 85 Abduction 45 Internal Rotation 50 External Rotation 65 PT-OP-M Strength Start: 11/02/19 11:26 Freq: Status: Active Protocol: Document 11/02/19 11:28 LRN (Rec: 11/02/19 12:48 LRN [id number]) Trunk Strength Trunk Manual Muscle Testing Reason Not Measured Pain Comments 6 weeks post surgical. Hip Strength Hip Manual Muscle Testing Right Flexion (L2) 3+ Fair+ Abduction 5 Normal Adduction 3 Fair External Rotation 5 Normal Internal Rotation 4 Good Comments Pain in L LB with MMT of hip AD Left Flexion (L2) 5 Normal Abduction 3 Fair Adduction 3- Fair- External Rotation 3+ Fair+ Internal Rotation 5 Normal PT-OP-Q Treatments Start: 11/02/19 11:26 Freq: Status: Active Protocol: Document 12/17/19 08:31 LRN (Rec: 12/17/19 09:10 LRN [id number]) Cardio Equipment Bicycle (Upright) Duration (Minutes) 10 Resistance 3 Seat Position 1 Therapeutic Exercises Supine Exercises DKTC Supine Exercise Name DKTC Reps/Minutes 2' Bridge Supine Exercise Name Bridging Reps/Minutes 4' for 10reps x 2 Comments Long rest and discussion between sets. Fig 4 stretch Supine Exercise Name Fig 4 stretch Side bilateral Reps/Minutes 2' Other Exercises Trunk Flex Other Exercise Name Trunk Flex stretch top down Reps/Minutes Pt doing independently Manual Therapy Treatment Soft Tissue Mobilization Low back Body Location Upper and low Back Mobilization Type Myofascial Release,Rolling, Strumming Intensity/Depth Superficial Body Position Sidelying Comments Treatment bilaterally PT-OP-R Modalities Start: 11/02/19 11:26 Freq: Status: Active Protocol: Document 12/10/19 08:21 LRN (Rec: 12/10/19 09:14 LRN [id number]) Hot Pack/Cold Pack Treatment Cold Pack Location Low Back Patient Position Supine Treatment Duration (minutes) 10 Patient Tolerance Good PT-OP-T Assessment and Plan Start: 11/02/19 11:26 Freq: Status: Active Protocol: Document 12/17/19 08:31 LRN (Rec: 12/17/19 09:10 LRN [id number]) Physical Therapy Assessment Goals Five Impairment Decreased hip mobility with difficulty bending & dressing. Short Term Goal (STG) Pt will be able to bend over in sitting and touch her knees to put lotion on her thighs without pain. STG Duration 12/04/19 (11/19/19: GOAL MET) Mathematics Department Chair Goal (LTG) Pt will be able to bend over to don/doff her pants and socks without minimal difficulty and pain no greater than 1/10. LTG Duration 01/31/20 (12/03/19: IMPROVING, no pain if move careful) Four Impairment Decreased lumbar mobility limiting ability pickup driver objects off the floor. Care Home Goal (LTG) Pt will be able to bend over to pickup driver light objects off the floor without difficulty. LTG Duration 12/04/19 (12/08/18: GOAL NOT MET) Three Impairment Pt L LBP limiting ability to exercise Short Term Goal (STG) Pt will be able to start a light low level, LE strengthening program without weights. STG Duration 12/04/19 (11/19/19: GOAL MET) Care Home Goal (LTG) Pt will be able to start an independent exercise program of light hand and leg weights for UE/LE strengthening. LTG Duration 01/15/19 (11/19/19: INITIATED) Two Impairment Daily LBP rated 4/10, sometimes sharp in nature limiting walking. Short Term Goal (STG) Decrease LBP at rest to 0/10 without onset of sharp pains. STG Duration 12/04/19 (12/17/19: GOAL MET) Care Home Goal (LTG) Pt will be able to walking the grocery store for shopping with pain no greater than 1/10 . LTG Duration 01/31/20 (11/19/19: GOAL MET) One Impairment Pt lacks a self care HEP Care Home Goal (LTG) Pt will be independent in a self care HEP to minimize back pain and allow pt to manage her condition at a tolerable level. LTG Duration 01/31/20 (12/08/19: PROGRESSING) Progress Towards Goals Progress Towards Goals Progressing Toward Goals,Slow Progress due to Activity Tolerance Progress Comments Goal 1: Progressing HEP as appropriate. Goal 2: STG: GOAL MET. LTG: GOAL MET. Goal 3: STG: GOAL MET. LTG: Initiated. Goal 4: Goal NOT MET. Goal 5: STG: GOAL MET. LTG: Progressing. Assessment Summary Assessment Pt able to perform bridging easier and with more confidence. Pt feeling better and trying to test her limits , but she was advised not to test herself at this time. Focus on STM of back; therefore did not do gait training (for core stability from excessive pelvic rotation L when advancing the R LE). Physical Therapy Plan Frequency and Duration Frequency of Treatment 2x/Week Plan of Care Start Date 11/02/19 Plan of Care End Date 01/31/20 Next Visit Focus/Plan Next Note Type Treatment Note Next Visit Plan Start TM or Bicycle, add Leg Curl/Ext, starting knee in flexion, with T-Band. Focus of therapy the next 2 weeks on improving trunk flexion mobility, gait mechanics (core stability from excessive pelvic rotation L when advancing the R LE) and decreasing pt fear of bending forward. Start with general exer on TM. After ex warm up MFR to T/S and L/S paraspinal to improve flexion mobility. Gait training for core stability from excessive pelvic rotation L when advancing the R LE. Cont post op rehab of trunk and as needed hip ROM. End with cryotherapy as needed.
--- NOTE | 2019-12-22 10:09 | PT.OTN ---
Physical Therapy Treatment Note PT-OP-A Visit Information Start: 11/02/19 11:26 Freq: Status: Active Protocol: Document 12/22/19 08:18 LRN (Rec: 12/22/19 09:03 LRN [id number]) Out-Patient Physical Therapy Visit Information Visit Information Visit Type Treatment Note Visit Start Time 08:18 Visit Stop Time 09:09 Total Visit Minutes 51 Visit Number 14 Number of PERIOPERATIVE MANAGER Visits 0 Evaluation Information Evaluation Date 11/02/19 Precautions Precautions 09/17/19 Surgery: L5-S1 Postero-lateral & posterior interbody fusion, interbody cage placement, decompressive laminectomy w/bilateral facetecomies, posterior non- segmental instrumentation. [place] of bone marrow form iliac crest. Pt managing muscle spasm and pain with Hydroxyzine & Gabapentin. PT-OP-B Current Condition Start: 11/02/19 11:26 Freq: Status: Active Protocol: Document 11/02/19 11:28 LRN (Rec: 11/02/19 12:48 LRN [id number]) Current Condition History of Current Condition Onset Date 09/17/19 Current Complaints Pain is daily, sudden, occasional sharp pain. History of Current Condition 6 weeks post operative L5-S1 surgery. Pt reports pain is the same as before surgery. States she can't find relief of pain with stretching like she used to. Pain is in the spine with sitting, feels a pinching. She states she is taking nerve medicine and that she was told recovery might take 6 months. When sleeping on the L side she gets numbness and pain from her L greater trochanter to the lateral thigh. Sometimes she presses a tennis ball on her lateral hip to make it feel better. She has been trying to keep her hamstrings flexible so it won't pull on the back. She reports doing stretches daily what she was doing before surgery. Developmental History Developmental History Prior to surgery the pt had intermittent severe L low back pain at SIJ level that did not fully resolve with physical therapy. Treatment Goals Patient/Caregiver Goals Pt's goal is to get rid of the L LB & hip pain. She would like to be able to bend over, touch her knees, do exercise, walk, and shop as exercise. Prior Functional Status Baseline Function- ADL's Independent Baseline Function- Mobility Independent Baseline Function- Work/School Walked 10,000 steps per day Baseline Function- Other Couldn't sit longer than 10-15 ' & couldn't sit on soft chair . Current Functional Impairments (Reported) Functional Limitations- ADL's Not able to walk any length without L LBP & hip pain. 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 Cooks but can't lift things. Can't wash leg, has to use long handle scrub. Difficulty carrying her table lamp. Functional Limitations- Mobility/Gait Not able to walking for exercise. Functional Limitations- Other Able to sit for an hour, but sometimes has random sharp pain. Personal Factors Other Personal Factors That May Effect Not able to work at this time. Therapy/Recovery Self employeed with spouse. Has two children, ages 28 and 13. History of depression. PT-OP-C Subjective Start: 11/02/19 11:26 Freq: Status: Active Protocol: Document 12/22/19 08:18 LRN (Rec: 12/22/19 09:03 LRN [id number]) OP-PT Subjective Patient Comments Patient Comments States had only the catch once . Can reach down to bottom level of departmental shipping clerk using one arm to support her body. States she uses a automobile mechanic motor to put her pants on. PT-OP-F Manual Assessment Start: 11/02/19 11:26 Freq: Status: Active Protocol: Document 11/02/19 11:28 LRN (Rec: 11/03/19 08:55 LRN [id number]) Manual Assessments Soft Tissue Assessment Soft Tissue Mobility Assessment Decreased soft tissue mobility of the lumbar paraspinals, sacral region, and along well healed scar. Muscle guarding of posterior hip muscles R>L. PT-OP-G Mobility & Gait Start: 11/02/19 11:26 Freq: Status: Active Protocol: Document 11/02/19 11:28 LRN (Rec: 11/03/19 08:55 LRN [id number]) OP Mobility Evaluation Bed Mobility Supine to and from Sit Good log roll technique sit > Supine. Supine > Sit: Pt tried coming to sit with feet still on the plinth. Transfers Sit to Stand Good body mechanics PT-OP-H Neuro Start: 11/02/19 11:26 Freq: Status: Active Protocol: Document 11/02/19 11:28 LRN (Rec: 11/03/19 08:55 LRN [id number]) Sensation Evaluation Gross Sensation Gross Sensation WNL Deep Tendon Reflex & Clonus Assessment Deep Tendon Reflex Bilateral Achilles Deep Tendon Reflex 2+ Normal Bilateral Patellar Deep Tendon Reflex 3+ Normal But Brisk PT-OP-J Posture/Palpation/Skin Start: 11/02/19 11:26 Freq: Status: Active Protocol: Document 11/02/19 11:28 LRN (Rec: 11/03/19 08:55 LRN [id number]) Posture Evaluation Position Standing Evaluation View All positions Knee Posture (L) Genu Recurvatum,(R) Genu Recurvatum Foot Arch (L) Low Arch,(R) No Arch Palpation Assessment Location Lumbar Palpation Location Lower lumbar region Palpation Findings Edema Palpation Details Increased temperature. Sacrum Palpation Location Sacral region Palpation Findings Edema Palpation Details Increased temperature. Skin Assessment Incisional Assessment Incision Appearance/Comments Well healed scar with decreased tissue mobility. PT-OP-K Range of Motion Start: 11/02/19 11:26 Freq: Status: Active Protocol: Document 11/02/19 11:28 LRN (Rec: 11/02/19 12:48 LRN [id number]) Lumbar Spine Range of Motion Lumbar Spine Active Degrees Testing Position Standing Flexion 25 ROM Limitations Soft Tissue Tightness,Pain Comments Post op instructions: No excessive bending, twisting, lifting for 6 weeks. Sitting trunk rotation: 43 degs Right, 52 degs Left. Hip Goniometric Range of Motion Hip Right Passive Testing Position Supine Straight Leg Raise 85 Abduction 45 Internal Rotation 40 External Rotation 50 Left Passive Testing Position Supine Straight Leg Raise 85 Abduction 45 Internal Rotation 50 External Rotation 65 PT-OP-M Strength Start: 11/02/19 11:26 Freq: Status: Active Protocol: Document 11/02/19 11:28 LRN (Rec: 11/02/19 12:48 LRN [id number]) Trunk Strength Trunk Manual Muscle Testing Reason Not Measured Pain Comments 6 weeks post surgical. Hip Strength Hip Manual Muscle Testing Right Flexion (L2) 3+ Fair+ Abduction 5 Normal Adduction 3 Fair External Rotation 5 Normal Internal Rotation 4 Good Comments Pain in L LB with MMT of hip AD Left Flexion (L2) 5 Normal Abduction 3 Fair Adduction 3- Fair- External Rotation 3+ Fair+ Internal Rotation 5 Normal PT-OP-Q Treatments Start: 11/02/19 11:26 Freq: Status: Active Protocol: Document 12/22/19 08:18 LRN (Rec: 12/22/19 09:03 LRN [id number]) Cardio Equipment Treadmill Duration (Minutes) 10 Speed 1.6 Incline 0 Therapeutic Exercises Supine Exercises DKTC Supine Exercise Name DKTC Reps/Minutes 2' Bridge Supine Exercise Name Bridging Reps/Minutes 4' for 10reps x 3 Comments Discussion between 1st set of 10, Trunk Rotation Supine Exercise Name KTC w/kness side to side Side bilateral Reps/Minutes 2' Sidelying Exercises Upper trunk rot Sidelying Exercise Name Upper trunk rot Side bilateral Reps/Minutes 8' Comments Training to prevent overstretch of shoulders. Sitting Exercises Upper trunk Sitting Exercise Name Hands on table, reaching fwd, and to sides Side bilateral Equipment Used chair, gr table, pillow to rest hands on. Reps/Minutes 3' Manual Therapy Treatment Soft Tissue Mobilization Rot of trunk Body Location Upper back rotation, bilaterally Mobilization Type Myofascial Release Intensity/Depth Moderate Body Position Sidelying PT-OP-R Modalities Start: 11/02/19 11:26 Freq: Status: Active Protocol: Document 12/22/19 08:18 LRN (Rec: 12/22/19 09:03 LRN [id number]) Hot Pack/Cold Pack Treatment Hot Pack Location Back Patient Position Supine Treatment Duration (minutes) 10 PT-OP-T Assessment and Plan Start: 11/02/19 11:26 Freq: Status: Active Protocol: Document 12/22/19 08:18 LRN (Rec: 12/22/19 09:03 LRN [id number]) Physical Therapy Assessment Goals Five Impairment Decreased hip mobility with difficulty bending & dressing. Short Term Goal (STG) Pt will be able to bend over in sitting and touch her knees to put lotion on her thighs without pain. STG Duration 12/04/19 (11/19/19: GOAL MET) Correction Goal (LTG) Pt will be able to bend over to don/doff her pants and socks without minimal difficulty and pain no greater than 1/10. LTG Duration 01/31/20 (12/03/19: IMPROVING, no pain if move careful) Four Impairment Decreased lumbar mobility limiting ability chart picker objects off the floor. Photograph Tinter Goal (LTG) Pt will be able to bend over to chart picker light objects off the floor without difficulty. LTG Duration 12/04/19 (12/08/18: GOAL NOT MET) Three Impairment Pt L LBP limiting ability to exercise Short Term Goal (STG) Pt will be able to start a light low level, LE strengthening program without weights. STG Duration 12/04/19 (11/19/19: GOAL MET) Correction Goal (LTG) Pt will be able to start an independent exercise program of light hand and leg weights for UE/LE strengthening. LTG Duration 01/15/19 (11/19/19: INITIATED) Two Impairment Daily LBP rated 4/10, sometimes sharp in nature limiting walking. Short Term Goal (STG) Decrease LBP at rest to 0/10 without onset of sharp pains. STG Duration 12/04/19 (12/17/19: GOAL MET) Correction Goal (LTG) Pt will be able to walking the grocery store for shopping with pain no greater than 1/10 . LTG Duration 01/31/20 (11/19/19: GOAL MET) One Impairment Pt lacks a self care HEP Correction Goal (LTG) Pt will be independent in a self care HEP to minimize back pain and allow pt to manage her condition at a tolerable level. LTG Duration 01/31/20 (12/08/19: PROGRESSING) Assessment Summary Assessment Tight on R trunk. Pt moves very cautiously. Physical Therapy Plan Frequency and Duration Frequency of Treatment 2x/Week Plan of Care Start Date 11/02/19 Plan of Care End Date 01/31/20 Next Visit Focus/Plan Next Note Type Treatment Note Next Visit Plan Recheck sitting trunk stretch after warm up and stretch. Check Lumbar ROM. Start TM or Bicycle, add Leg Curl/Ext, starting knee in flexion, with T-Band. Focus of therapy the next 2 weeks on improving trunk flexion mobility, gait mechanics (core stability from excessive pelvic rotation L when advancing the R LE) and decreasing pt fear of bending forward. Start with general exer on TM. After ex warm up MFR to T/S and L/S paraspinal to improve flexion mobility. Gait training for core stability from excessive pelvic rotation L when advancing the R LE. Cont post op rehab of trunk and as needed hip ROM. End with cryotherapy as needed.
--- NOTE | 2020-01-08 15:28 | PT.OTN ---
Physical Therapy Treatment Note PT-OP-A Visit Information Start: 11/02/19 11:26 Freq: Status: Active Protocol: Document 01/08/20 09:00 LRN (Rec: 01/08/20 09:51 LRN [id number]) Out-Patient Physical Therapy Visit Information Visit Information Visit Type Treatment Note Visit Start Time 09:00 Visit Stop Time 09:48 Total Visit Minutes 48 Visit Number 16 Number of AIRCRAFT ENGINE CYLINDER MECHANIC Visits 0 Evaluation Information Evaluation Date 11/02/19 Precautions Precautions 09/17/19 Surgery: L5-S1 Postero-lateral & posterior interbody fusion, interbody cage placement, decompressive laminectomy w/bilateral facetecomies, posterior non- segmental instrumentation. Tillar of bone marrow form iliac crest. Pt managing muscle spasm and pain with Hydroxyzine & Gabapentin. PT-OP-B Current Condition Start: 11/02/19 11:26 Freq: Status: Active Protocol: Document 11/02/19 11:28 LRN (Rec: 11/02/19 12:48 LRN [id number]) Current Condition History of Current Condition Onset Date 09/17/19 Current Complaints Pain is daily, sudden, occasional sharp pain. History of Current Condition 6 weeks post operative L5-S1 surgery. Pt reports pain is the same as before surgery. States she can't find relief of pain with stretching like she used to. Pain is in the spine with sitting, feels a pinching. She states she is taking nerve medicine and that she was told recovery might take 6 months. When sleeping on the L side she gets numbness and pain from her L greater trochanter to the lateral thigh. Sometimes she presses a tennis ball on her lateral hip to make it feel better. She has been trying to keep her hamstrings flexible so it won't pull on the back. She reports doing stretches daily what she was doing before surgery. Developmental History Developmental History Prior to surgery the pt had intermittent severe L low back pain at SIJ level that did not fully resolve with physical therapy. Treatment Goals Patient/Caregiver Goals Pt's goal is to get rid of the L LB & hip pain. She would like to be able to bend over, touch her knees, do exercise, walk, and shop as exercise. Prior Functional Status Baseline Function- ADL's Independent Baseline Function- Mobility Independent Baseline Function- Work/School Walked 10,000 steps per day Baseline Function- Other Couldn't sit longer than 10-15 ' & couldn't sit on soft chair . Current Functional Impairments (Reported) Functional Limitations- ADL's Not able to walk any length without L LBP & hip pain. Not able to vacuum, lift, bend and burr picker things, can't exercise because can't twist. Cooks but can't lift things. Can't wash leg, has to use long handle scrub. Difficulty carrying her table lamp. Functional Limitations- Mobility/Gait Not able to walking for exercise. Functional Limitations- Other Able to sit for an hour, but sometimes has random sharp pain. Personal Factors Other Personal Factors That May Effect Not able to work at this time. Therapy/Recovery Self employeed with spouse. Has two children, ages 28 and 13. History of depression. PT-OP-C Subjective Start: 11/02/19 11:26 Freq: Status: Active Protocol: Document 01/08/20 09:00 LRN (Rec: 01/08/20 09:51 LRN [id number]) OP-PT Subjective Patient Comments Patient Comments States she is doing very well. Saw Dr. Taylor on 12/31/19, and was told it was SIJ. She then learned on internet self rx of DKTC and lateral hip stretch, so she no longer has the click pain. Self massages thighs in supine. Does leg and arm strengthening exercises. Patient Questionnaires Oswestry Low Back Index Oswestry Score 18 Oswestry Impairment 1 to 19% Impaired (Score 1-19) OP-PT Pain Assessment Pain Assessment Grid Paper Pain Assessment Grid Completed Yes Location Left Lower Back Pain Location Details L low back @ SIJ Intensity 1 Scale Used Numeric (1 - 10) Description- Other Clicks, weak Frequency Intermittent PT-OP-F Manual Assessment Start: 11/02/19 11:26 Freq: Status: Active Protocol: Document 11/02/19 11:28 LRN (Rec: 11/03/19 08:55 LRN [id number]) Manual Assessments Soft Tissue Assessment Soft Tissue Mobility Assessment Decreased soft tissue mobility of the lumbar paraspinals, sacral region, and along well healed scar. Muscle guarding of posterior hip muscles R>L. PT-OP-G Mobility & Gait Start: 11/02/19 11:26 Freq: Status: Active Protocol: Document 11/02/19 11:28 LRN (Rec: 11/03/19 08:55 LRN [id number]) OP Mobility Evaluation Bed Mobility Supine to and from Sit Good log roll technique sit > Supine. Supine > Sit: Pt tried coming to sit with feet still on the plinth. Transfers Sit to Stand Good body mechanics PT-OP-H Neuro Start: 11/02/19 11:26 Freq: Status: Active Protocol: Document 11/02/19 11:28 LRN (Rec: 11/03/19 08:55 LRN [id number]) Sensation Evaluation Gross Sensation Gross Sensation WNL Deep Tendon Reflex & Clonus Assessment Deep Tendon Reflex Bilateral Achilles Deep Tendon Reflex 2+ Normal Bilateral Patellar Deep Tendon Reflex 3+ Normal But Brisk PT-OP-J Posture/Palpation/Skin Start: 11/02/19 11:26 Freq: Status: Active Protocol: Document 11/02/19 11:28 LRN (Rec: 11/03/19 08:55 LRN [id number]) Posture Evaluation Position Standing Evaluation View All positions Knee Posture (L) Genu Recurvatum,(R) Genu Recurvatum Foot Arch (L) Low Arch,(R) No Arch Palpation Assessment Location Lumbar Palpation Location Lower lumbar region Palpation Findings Edema Palpation Details Increased temperature. Sacrum Palpation Location Sacral region Palpation Findings Edema Palpation Details Increased temperature. Skin Assessment Incisional Assessment Incision Appearance/Comments Well healed scar with decreased tissue mobility. PT-OP-K Range of Motion Start: 11/02/19 11:26 Freq: Status: Active Protocol: Document 01/08/20 09:00 LRN (Rec: 01/08/20 09:51 LRN [id number]) Lumbar Spine Range of Motion Lumbar Spine Active Degrees Testing Position Standing Flexion 90 Rotation Left 45 Rotation Right 38 Lateral Flexion Left 12 Lateral Flexion Right 10 ROM Limitations Soft Tissue Tightness Comments Rotation measured in sitting. Hip flex is 70 deg's. Hip Goniometric Range of Motion Hip Right Passive Testing Position Supine Straight Leg Raise 100 Abduction 45 Internal Rotation 65 External Rotation 65 Left Passive Testing Position Supine Straight Leg Raise 100 Abduction 45 Internal Rotation 65 External Rotation 60 PT-OP-M Strength Start: 11/02/19 11:26 Freq: Status: Active Protocol: Document 11/02/19 11:28 LRN (Rec: 11/02/19 12:48 LRN [id number]) Trunk Strength Trunk Manual Muscle Testing Reason Not Measured Pain Comments 6 weeks post surgical. Hip Strength Hip Manual Muscle Testing Right Flexion (L2) 3+ Fair+ Abduction 5 Normal Adduction 3 Fair External Rotation 5 Normal Internal Rotation 4 Good Comments Pain in L LB with MMT of hip AD Left Flexion (L2) 5 Normal Abduction 3 Fair Adduction 3- Fair- External Rotation 3+ Fair+ Internal Rotation 5 Normal PT-OP-Q Treatments Start: 11/02/19 11:26 Freq: Status: Active Protocol: Document 01/08/20 09:00 LRN (Rec: 01/08/20 09:51 LRN [id number]) Cardio Equipment Treadmill Duration (Minutes) 10 Speed 1.6 Incline 0 Therapeutic Exercises Supine Exercises Partial Sit up Supine Exercise Name Partial Sit up Reps/Minutes 10 Sec hold x 10 Piriformis Supine Exercise Name Piriformis Side bilateral Reps/Minutes 2' DKTC Supine Exercise Name DKTC Reps/Minutes 32' Comments Start & end with stretch Bridge Supine Exercise Name Bridging Reps/Minutes 10reps x 3 Trunk Rotation Supine Exercise Name Active trunk rot Side bilateral Reps/Minutes 34' Fig 4 stretch Supine Exercise Name Fig 4 stretch Side left Reps/Minutes 2' Sidelying Exercises Trunk Side stretch Sidelying Exercise Name Trunk Side stretch Side bilateral Reps/Minutes 10 TA w/Hip AB/ankle DF Sidelying Exercise Name TA w/Hip AB & Glut squeeze/ ankle DF Side bilateral Reps/Minutes 15x each Other Exercises Trunk AROM Other Exercise Name AROM flex, SB, rot Side bilateral Comments ROM taken after stretch Self-Care/Home Management Treatment Education Patient Education Home Exercise Program Activities Self-Care/Home Management Activities Reviewed HEP. PT-OP-R Modalities Start: 11/02/19 11:26 Freq: Status: Active Protocol: Document 12/24/19 08:17 LRN (Rec: 12/24/19 09:07 LRN [id number]) Hot Pack/Cold Pack Treatment Cold Pack Location Low Back Patient Position Supine Treatment Duration (minutes) 10 Patient Tolerance Good PT-OP-T Assessment and Plan Start: 11/02/19 11:26 Freq: Status: Active Protocol: Document 01/08/20 09:00 LRN (Rec: 01/08/20 09:51 LRN [id number]) Physical Therapy Assessment Goals Five Impairment Decreased hip mobility with difficulty bending & dressing. Short Term Goal (STG) Pt will be able to bend over in sitting and touch her knees to put lotion on her thighs without pain. STG Duration 12/04/19 (11/19/19: GOAL MET) Longwall Shearer Operator Goal (LTG) Pt will be able to bend over to don/doff her pants and socks without minimal difficulty and pain no greater than 1/10. LTG Duration 01/31/20 (01/08/20: Goal Met, no pain) Four Impairment Decreased lumbar mobility limiting ability burr picker objects off the floor. Half-Way Goal (LTG) Pt will be able to bend over to burr picker light objects off the floor without difficulty. LTG Duration 12/04/19 (01/08/20: GOAL MET, moves slow w/no pain) Three Impairment Pt L LBP limiting ability to exercise Short Term Goal (STG) Pt will be able to start a light low level, LE strengthening program without weights. STG Duration 12/04/19 (11/19/19: GOAL MET) Half-Way Goal (LTG) Pt will be able to start an independent exercise program of light hand and leg weights for UE/LE strengthening. LTG Duration 01/15/19 (01/08/20: GOAL MET) Two Impairment Daily LBP rated 4/10, sometimes sharp in nature limiting walking. Short Term Goal (STG) Decrease LBP at rest to 0/10 without onset of sharp pains. STG Duration 12/04/19 (12/17/19: GOAL MET) Half-Way Goal (LTG) Pt will be able to walking the grocery store for shopping with pain no greater than 1/10 . LTG Duration 01/31/20 (11/19/19: GOAL MET) One Impairment Pt lacks a self care HEP Longwall Shearer Operator Goal (LTG) Pt will be independent in a self care HEP to minimize back pain and allow pt to manage her condition at a tolerable level. LTG Duration 01/31/20 (12/08/19: GOAL MET) Assessment Summary Assessment Pt has returned active exercise and daily mobility ( walking 2 miles on TM every other day). She has learned to manage her pain and is progressing on her own her core and pelvic stability. Physical Therapy Plan Discharge Physical Therapy Discharge Reasons Goals Met Discharge Comments Pt has met goals and is ready to continue on her own HEP. Thank you for your referral.
== END 2020-01-14 12:58 ==
LOC: PHYS 09:00
PROVIDERS: Family Provider Family Medicine; PCP Family Medicine; Visit Provider Orthopaedic Surgery Orthopaedic Surgery of the Spine
DX: M62.830 Muscle spasm of back (principal); M54.9 Dorsalgia, unspecified
CPT/HCPCS: 97010; 97014; 97110; 97116; 97140; 97162; 97535; G0283

== ENCOUNTER → 2021-03-09 14:21 | Outpatient (CLI) | payer BC, SELFPAY ==
[2019-09-17 14:35] VITALS: BMI 23.2
[2021-03-09] MEDS: COVID-19 VACC #1, MRNA(MOD) 100 MCG/0.5 ML VIAL IM (14:27)
== END ==
PROVIDERS: Family Provider Family Medicine; PCP Family Medicine; Visit Provider Internal Medicine
DX: Z23 Encounter for immunization (principal)
CPT/HCPCS: 0011A; 91301

== ENCOUNTER → 2021-04-06 08:13 | Outpatient (CLI) | payer BC, SELFPAY ==
[2019-09-17 14:35] VITALS: BMI 23.2
[2021-04-06] MEDS: COVID-19 VACC #2, MRNA(MOD) 100 MCG/0.5 ML VIAL IM (08:23)
== END ==
PROVIDERS: Family Provider Family Medicine; PCP Family Medicine; Visit Provider Internal Medicine
DX: Z23 Encounter for immunization (principal)
CPT/HCPCS: 0012A; 91301

== ENCOUNTER → 2021-05-03 13:25 | Outpatient (CLI) | payer BC, SELFPAY ==
[2019-09-17 14:35] VITALS: BMI 23.2
--- NOTE | 2021-05-03 13:28 | DI.RAD.S_ITS ---
PROCEDURE: XR LUMBAR SPINE 2-3V INDICATIONS: low back pain TECHNIQUE: 3 views of the lumbar spine were acquired. COMPARISON: [facility], CR, XR LUMBAR SPINE 2-3V, 09/17/2019, 11:01. [facility], CR, XR LUMBAR SPINE 2-3V, 05/11/2019, 10:59. FINDINGS: Bones: 5 [id number] vertebrae are present. There is normal bony alignment. No vertebral body compression fractures. No suspicious bony lesions. Soft tissues: Overlying bowel gas pattern is normal. No suspicious soft tissue calcifications. IMPRESSION: Transverse pedicle screws and vertical fixation rods appear stable at L4-S1 with an interbody disc cage spacer at the L5-S1 level. Anterolisthesis previously present has been corrected. No source of new back pain is found. Dictated by: Douglas Rader M.D. on 05/03/2021 at 14:59 Approved by: Douglas Rader M.D. on 05/03/2021 at 15:00
== END ==
PROVIDERS: Family Provider Family Medicine; PCP Family Medicine; Referring Provider Family Medicine; Visit Provider Family Medicine
DX: M54.5 Low back pain (principal); Z98.1 Arthrodesis status
CPT/HCPCS: 72100

== ENCOUNTER 2021-06-22 14:30 | Outpatient (RCR) | payer BC, SELFPAY ==
[2019-09-17 14:35] VITALS: BMI 23.2
--- NOTE | 2021-05-18 16:53 | PT.OIE ---
Current Diagnoses Radiculopathy, lumbar region (05/18/21) Low back pain (05/18/21) Abnormal posture (05/18/21) Past Medical History (Last Updated 09/11/19 @ 09:11 by Cassia Wilder RN) Anxiety Back pain Depression History of section Hx of plastic surgery (~2015) Past Surgical History (Last Updated 09/11/19 @ 09:09 by Cassia Wilder RN) History of section Hx of plastic surgery (~2015) Visit Care Team Role Provider Type Laura Moran MD Attending Provider Physician Family Provider Primary Care Provider Referring Provider Specialty: Family Practice Address: [address] [place] [address], [facility] Email: [email or web address] Physical Therapy Initial Evaluation PT-OP-A Visit Information Start: 05/18/21 09:25 Freq: Status: Active Protocol: Document 05/18/21 11:15 AW (Rec: 05/18/21 11:40 AW [email or web address]) Out-Patient Physical Therapy Visit Information Visit Information Visit Type Initial Evaluation Visit Start Time 10:30 Visit Stop Time 11:15 Total Visit Minutes 45 Visit Number 1 Number of CHIP APPLYING MACHINE TENDER Visits 0 Evaluation Information Evaluation Date 05/18/21 Precautions Precautions low BP PT-OP-B Current Condition Start: 05/18/21 09:25 Freq: Status: Active Protocol: Document 05/18/21 11:15 AW (Rec: 05/18/21 09:34 AW [id number]) Current Condition History of Current Condition Onset Date a few weeks Current Complaints low back pain, left worse than right History of Current Condition Two weeks ago, Himanshu used a vibration plate three times in one day. She got stiff and could barely lift her leg that night. She has improved since that time but continues to complain of low back and left hip pain. She denies pain in her legs other than tightness along her anterior and lateral thighs (left worse than right ). Sitting too long increases her pain. Walking and standing are ok. Pt can tolerate laying on her stomach. Sometimes when she rolls over in bed, she feels her left hip is stuck until it clicks. She has been using pain medication but can not remember the name. She reports it has been making her lightheaded. Her normal BP is ~110/80. Prior Treatments and Tests 09/17/19 Surgery: L5-S1 Postero-lateral & posterior interbody fusion, interbody cage placement, decompressive laminectomy w/bilateral facetecomies, posterior non- segmental instrumentation. PT 10/2019-12/2019 - met all goals 05/03/21 x-ray: Transverse pedicle screws and vertical fixation rods appear stable at L4-S1 with an interbody disc cage spacer at the L5-S1 level . Anterolisthesis previously present has been corrected. No source of new back pain is found. Future Testing and Treatments Planned None identified Treatment Goals Patient/Caregiver Goals Pt would like to be able to move in bed without pain, hike [place] trails with increased confidence, and bend over to tend her garden without pain. Prior Functional Status Baseline Function- ADL's Independent Baseline Function- Mobility Independent Baseline Function- Other Hiking, gardening without pain Current Functional Impairments (Reported) Functional Limitations- ADL's Pt reports some difficulty with LB dressing tasks but slowly improving since she began pain medication. Functional Limitations- Mobility/Gait Antalgic with decreased left weightbearing. Functional Limitations- Recreation/ Difficulty bending over for Hobbies gardening tasks. Personal Factors Other Personal Factors That May Effect (+) good prior experience with Therapy/Recovery PT (+) supportive family (-) chronicity PT-OP-C Subjective Start: 05/18/21 09:25 Freq: Status: Active Protocol: Document 05/18/21 11:15 AW (Rec: 05/18/21 11:40 AW [email or web address]) OP-PT Subjective Patient Comments Patient Comments I feel better than I did when I made this appointment. Patient Reported Progress Improving Patient Questionnaires Oswestry Low Back Index Oswestry Score 11 Oswestry Impairment 1 to 19% Impaired (Score 1-19) OP-PT Pain Assessment Pain Assessment Grid Paper Pain Assessment Grid Completed Yes: scanned to EMR Home Pain Medication Use Pain Medications Used Yes Home Pain Medication Frequency Daily Patient Goal Eliminate need PT-OP-D Balance Start: 05/18/21 09:25 Freq: Status: Active Protocol: Document 05/18/21 11:15 AW (Rec: 05/18/21 11:40 AW [email or web address]) OP-PT Balance Assessment Sitting Balance Static Sitting Balance Ability Normal Dynamic Sitting Balance Ability Normal Standing Balance Static Standing Balance Ability Normal Dynamic Standing Balance Ability Good Standing Balance Comments Decreased LLE weightbearing Balance Tests Single Limb Standing Single Limb- Right >15 seconds with good stability Single Limb- Left 12-15 seconds with poor stability Other Other Balance Tests Performed SL squat: R from 23 seat height; L from 20 seat height with instability Walker Fall Scale Copyright Permission PT-OP-F Manual Assessment Start: 05/18/21 09:25 Freq: Status: Active Protocol: Document 05/18/21 11:15 AW (Rec: 05/18/21 11:47 AW [email or web address]) Manual Assessments Soft Tissue Assessment Soft Tissue Mobility Assessment Muscle guarding in lumbar paraspinal and gluteal musculature - left more affected than right Joint Mobility Assessment Joint Mobility Assessment No pain with lumbar and thoracic PA's. Excursion consistent with history of L5- S1 fusion. All other joints WNL PT-OP-G Mobility & Gait Start: 05/18/21 09:25 Freq: Status: Active Protocol: Document 05/18/21 11:15 AW (Rec: 05/18/21 11:55 AW [email or web address]) OP Gait Assessment Gait Gait Assistance Required: Independent Distance (Feet) 100 Assistive Devices Assistive Device None Gait Deviations General Gait Pattern Antalgic Factors Limiting Gait Function Factors Limiting Gait Function Decreased Strength,Pain Comments Gait Comments Decreased left LE weightbearing. PT-OP-H Neuro Start: 05/18/21 09:25 Freq: Status: Active Protocol: Document 05/18/21 11:15 AW (Rec: 05/18/21 11:55 AW [email or web address]) Sensation Evaluation Gross Sensation Gross Sensation WNL Deep Tendon Reflex & Clonus Assessment Deep Tendon Reflex Bilateral Achilles Deep Tendon Reflex 1+ Diminished Bilateral Patellar Deep Tendon Reflex 2+ Normal PT-OP-J Posture/Palpation/Skin Start: 05/18/21 09:25 Freq: Status: Active Protocol: Document 05/18/21 11:15 AW (Rec: 05/18/21 11:55 AW [email or web address]) Posture Evaluation Position Standing Head/C-Spine Posture Neutral Position T-Spine Posture Flattened L-Spine Posture Increased Lordosis,Flexible Scoliosis on (L) Shoulder Posture (L) Elevated Scapula Posture (L) Elevated Weight Distribution Weight Shifted Right,Decreased Wt.Bear on (L) Knee Posture (L) Genu Recurvatum,(R) Genu Recurvatum Skin Assessment Incisional Assessment Incision Appearance/Comments Well-healed scars bilateral lumbar region PT-OP-K Range of Motion Start: 05/18/21 09:25 Freq: Status: Active Protocol: Document 05/18/21 11:15 AW (Rec: 05/18/21 12:11 AW [email or web address]) Lumbar Spine Range of Motion Lumbar Spine Active Degrees Testing Position Standing Flexion 90 Extension 10 Rotation Left 20 Rotation Right 30 ROM Limitations Soft Tissue Tightness,Pain Comments Lateral flexion: fingertips to knee joint right side; 2 above knee joint left side. Lumbar spine is relatively flat without segmental motion in all planes. Hip Goniometric Range of Motion Hip Bilateral Passive Hip ROM WFL Yes Testing Position Supine Comments WFL but painful with rotation left hip. Hip ROM Limitations Hip ROM Limitations Pain PT-OP-L Special Tests Start: 05/18/21 09:25 Freq: Status: Active Protocol: Document 05/18/21 11:15 AW (Rec: 05/18/21 12:11 AW [email or web address]) Special Tests Hip Special Tests [facility] Resisted Hip Flexion Test Results positive left; mildly positive right Comments poor core stabilization with resistance in hip flexion Scour Test Test Results negative bilaterally BREE Test Results negative bilaterally Neural Special Tests- Lower Body Sciatic Nerve Tension Test Results negative bilaterally PT-OP-M Strength Start: 05/18/21 09:25 Freq: Status: Active Protocol: Document 05/18/21 11:15 AW (Rec: 05/18/21 12:11 AW [email or web address]) Trunk Strength Trunk Manual Muscle Testing Testing Position Supine Core Stabilization Fair trunk stabilization vs resistance at extremities Hip Strength Hip Manual Muscle Testing Left Adduction 4 Good Internal Rotation 4 Good Comments Grossly 5/5 except as noted Right Flexion (L2) 4+ Good+ Internal Rotation 4+ Good+ Comments Grossly 5/5 except as noted Knee Strength Knee Manual Muscle Testing Right Flexion (S2) 5 Normal Extension (L3) 5 Normal Left Flexion (S2) 5 Normal Extension (L3) 5 Normal Ankle/Foot Strength Ankle and Foot Manual Muscle Testing Right Comments Grossly 5/5 Left Comments Grossly 5/5 Toe Strength Toe Manual Muscle Testing Great Toe Extension 5 Normal PT-OP-Q Treatments Start: 05/18/21 09:25 Freq: Status: Active Protocol: Document 05/18/21 11:15 AW (Rec: 05/18/21 12:15 AW [email or web address]) Manual Therapy Treatment Soft Tissue Mobilization Hip ER's Body Location Left Hip ER's at Sacral Border & Piriformis Mobilization Type Strumming,Sustained Pressure Intensity/Depth Moderate Body Position Prone Comments Intensity/Depth: Moderate to Deep. Low back Body Location Low back Mobilization Type Myofascial Release,Rolling, Strumming Intensity/Depth Moderate Body Position Prone Joint Mobilizations SIJ Body Position Sup PT-OP-T Assessment and Plan Start: 05/18/21 09:25 Freq: Status: Active Protocol: Document 05/18/21 11:15 AW (Rec: 05/18/21 12:56 AW [email or web address]) Physical Therapy Assessment Rehab Potential Rehabilitation Potential Good Evaluation Complexity Number of Personal Factors/Comorbidities 1-2 Number of Body Systems Impaired 1-2 Clinical Presentation at Evaluation Stable Impairments Impairments Activity Tolerance,Balance, Pain,Posture,ROM,Soft Tissue Mobility,Strength Other Impairments Sitting tolerance Other Concerns Barriers to Rehabilitation Chronicity of condition Goals Four Impairment impaired strength, stability LLE Alf Goal (LTG) Pt will perform single leg squat from 20 height table bilaterally to demonstrate improved strength and stability. LTG Duration 07/13/21 Three Impairment quality of life/daily function Moose Hunter Goal (LTG) Pt will score 10 or less on modified Oswestry to demonstrate improved daily function LTG Duration 07/13/21 Two Impairment Lacks HEP Moose Hunter Goal (LTG) Pt will be independent with HEP for to manage and prevent LBP symptoms. LTG Duration 07/13/21 One Impairment Limited sitting tolerance Short Term Goal (STG) Pt will be educated in postural awareness and compensatory measures to improve sitting tolerance to 10 minutes at a time without increase in baseline pain. STG Duration 06/15/21 Moose Hunter Goal (LTG) Pt will sit 30 minutes without pain greater than 1/10 LTG Duration 07/13/21 Assessment Summary Assessment Himanshu is a 51 yo woman with history of stable L4-S1 TLIF who presents to outpatient physical therapy with new onset low back and SI joint pain - left more affected than right. Recent x-ray report indicates previous anterolisthesis is resolved. Pt is limited in sitting tolerance and presents with left lower extremity instability evidenced by differential in ability to perform single leg squat. Trunk stability is poor which is likely contributing to persistence of deficits. Pt will benefit from skilled physical therapy to address strength and stability for improved ability to participate in recreational activities and perform duties around her home. Physical Therapy Plan Frequency and Duration Frequency of Treatment 1-2x/week Duration of Treatment 2 months Plan of Care Start Date 05/18/21 Plan of Care End Date 07/19/21 Therapeutic Interventions Therapeutic Interventions Aquatic Therapy,Home Exercise Program,Joint Mobilizations, Manual Therapy,Neuromuscular Re-education,Patient/Caregiver Education,Self-Care/Home Management,Soft Tissue Mobilization,Taping, Therapeutic Activities, Therapeutic Exercises Modalities Cold Pack/Ice Massage,Hot Packs Other Therapeutic Interventions SI belt Next Visit Focus/Plan Next Note Type Treatment Note Next Visit Plan Consider taping for SI stability and assess for appropriateness of SI belt. Initiate core strengthening in supported position and progress as able.
--- NOTE | 2021-05-18 16:54 | PT.OPPOC ---
Physical, Occupational & Speech Therapy At [facility] Current Diagnoses Radiculopathy, lumbar region (05/18/21) Low back pain (05/18/21) Abnormal posture (05/18/21) Visit Care Team Role Provider Type Laura Moran MD Attending Provider Physician Family Provider Primary Care Provider Referring Provider Specialty: Family Practice Address: [address] [place] [address], [facility] [place], [place], [facility] Email: Plan Of Care PT-OP-T Assessment and Plan Start: 05/18/21 09:25 Freq: Status: Active Protocol: Document 05/18/21 11:15 AW (Rec: 05/18/21 12:56 AW [email or web address]) Physical Therapy Assessment Rehab Potential Rehabilitation Potential Good Evaluation Complexity Number of Personal Factors/Comorbidities 1-2 Number of Body Systems Impaired 1-2 Clinical Presentation at Evaluation Stable Impairments Impairments Activity Tolerance,Balance, Pain,Posture,ROM,Soft Tissue Mobility,Strength Other Impairments Sitting tolerance Other Concerns Barriers to Rehabilitation Chronicity of condition Goals Four Impairment impaired strength, stability LLE Opto Mechanical Engineer Goal (LTG) Pt will perform single leg squat from 20 height table bilaterally to demonstrate improved strength and stability. LTG Duration 07/13/21 Three Impairment quality of life/daily function Opto Mechanical Engineer Goal (LTG) Pt will score 10 or less on modified Oswestry to demonstrate improved daily function LTG Duration 07/13/21 Two Impairment Lacks HEP Residential Goal (LTG) Pt will be independent with HEP for to manage and prevent LBP symptoms. LTG Duration 07/13/21 One Impairment Limited sitting tolerance Short Term Goal (STG) Pt will be educated in postural awareness and compensatory measures to improve sitting tolerance to 10 minutes at a time without increase in baseline pain. STG Duration 06/15/21 Opto Mechanical Engineer Goal (LTG) Pt will sit 30 minutes without pain greater than 1/10 LTG Duration 07/13/21 Assessment Summary Assessment Himanshu is a 51 yo woman with history of stable L4-S1 TLIF who presents to outpatient physical therapy with new onset low back and SI joint pain - left more affected than right. Recent x-ray report indicates previous anterolisthesis is resolved. Pt is limited in sitting tolerance and presents with left lower extremity instability evidenced by differential in ability to perform single leg squat. Trunk stability is poor which is likely contributing to persistence of deficits. Pt will benefit from skilled physical therapy to address strength and stability for improved ability to participate in recreational activities and perform duties around her home. Physical Therapy Plan Frequency and Duration Frequency of Treatment 1-2x/week Duration of Treatment 2 months Plan of Care Start Date 05/18/21 Plan of Care End Date 07/19/21 Therapeutic Interventions Therapeutic Interventions Aquatic Therapy,Home Exercise Program,Joint Mobilizations, Manual Therapy,Neuromuscular Re-education,Patient/Caregiver Education,Self-Care/Home Management,Soft Tissue Mobilization,Taping, Therapeutic Activities, Therapeutic Exercises Modalities Cold Pack/Ice Massage,Hot Packs Other Therapeutic Interventions SI belt Next Visit Focus/Plan Next Note Type Treatment Note Next Visit Plan Consider taping for SI stability and assess for appropriateness of SI belt. Initiate core strengthening in supported position and progress as able. Plan of Care Dates Plan of Care Start Date 05/18/21 Plan of Care End Date 07/19/21 Electronically Signed by: Gloria Hernandez, PT 05/18/21 [id number] Please Sign and Return: I have reviewed this Plan of Care and certify that the skilled therapy services above are required to meet the patient?s needs. Physician Signature Date Printed Name and Credentials Clinical Instructor Signature Printed Name and Credentials
--- NOTE | 2021-05-25 13:10 | PT.OTN ---
Current Diagnoses Radiculopathy, lumbar region (05/25/21) Low back pain (05/25/21) Abnormal posture (05/25/21) Physical Therapy Treatment Note PT-OP-A Visit Information Start: 05/18/21 09:25 Freq: Status: Active Protocol: Document 05/25/21 12:19 SP (Rec: 05/25/21 15:57 SP [id number]) Out-Patient Physical Therapy Visit Information Visit Information Visit Type Treatment Note Visit Start Time 12:19 Visit Stop Time 13:10 Total Visit Minutes 51 Visit Number 2 Number of LOAN CONSULTANT Visits 1 Evaluation Information Evaluation Date 05/18/21 Precautions Precautions low BP PT-OP-B Current Condition Start: 05/18/21 09:25 Freq: Status: Active Protocol: Document 05/18/21 11:15 AW (Rec: 05/18/21 09:34 AW [email or web address]) Current Condition History of Current Condition Onset Date a few weeks Current Complaints low back pain, left worse than right History of Current Condition Two weeks ago, Himanshu used a vibration plate three times in one day. She got stiff and could barely lift her leg that night. She has improved since that time but continues to complain of low back and left hip pain. She denies pain in her legs other than tightness along her anterior and lateral thighs (left worse than right ). Sitting too long increases her pain. Walking and standing are ok. Pt can tolerate laying on her stomach. Sometimes when she rolls over in bed, she feels her left hip is stuck until it clicks. She has been using pain medication but can not remember the name. She reports it has been making her lightheaded. Her normal BP is ~110/80. Prior Treatments and Tests 09/17/19 Surgery: L5-S1 Postero-lateral & posterior interbody fusion, interbody cage placement, decompressive laminectomy w/bilateral facetecomies, posterior non- segmental instrumentation. PT 10/2019-12/2019 - met all goals 05/03/21 x-ray: Transverse pedicle screws and vertical fixation rods appear stable at L4-S1 with an interbody disc cage spacer at the L5-S1 level . Anterolisthesis previously present has been corrected. No source of new back pain is found. Future Testing and Treatments Planned None identified Treatment Goals Patient/Caregiver Goals Pt would like to be able to move in bed without pain, hike [place] with increased confidence, and bend over to tend her garden without pain. Prior Functional Status Baseline Function- ADL's Independent Baseline Function- Mobility Independent Baseline Function- Other Hiking, gardening without pain Current Functional Impairments (Reported) Functional Limitations- ADL's Pt reports some difficulty with LB dressing tasks but slowly improving since she began pain medication. Functional Limitations- Mobility/Gait Antalgic with decreased left weightbearing. Functional Limitations- Recreation/ Difficulty bending over for Hobbies gardening tasks. Personal Factors Other Personal Factors That May Effect (+) good prior experience with Therapy/Recovery PT (+) supportive family (-) chronicity PT-OP-C Subjective Start: 05/18/21 09:25 Freq: Status: Active Protocol: Document 05/25/21 12:19 SP (Rec: 05/25/21 15:57 SP [id number]) OP-PT Subjective Patient Comments Patient Comments Pt states has low back pain and goes into L glut and lateral leg, uses tennis ball on floor over LB, TS, various legs areas for decreases pain/ releases and breath to improve decrease tension and overall relaxation. PT-OP-D Balance Start: 05/18/21 09:25 Freq: Status: Active Protocol: Document 05/18/21 11:15 AW (Rec: 05/18/21 11:40 AW [email or web address]) OP-PT Balance Assessment Sitting Balance Static Sitting Balance Ability Normal Dynamic Sitting Balance Ability Normal Standing Balance Static Standing Balance Ability Normal Dynamic Standing Balance Ability Good Standing Balance Comments Decreased LLE weightbearing Balance Tests Single Limb Standing Single Limb- Right >15 seconds with good stability Single Limb- Left 12-15 seconds with poor stability Other Other Balance Tests Performed SL squat: R from 23 seat height; L from 20 seat height with instability Walker Fall Scale Copyright Permission PT-OP-F Manual Assessment Start: 05/18/21 09:25 Freq: Status: Active Protocol: Document 05/18/21 11:15 AW (Rec: 05/18/21 11:47 AW [email or web address]) Manual Assessments Soft Tissue Assessment Soft Tissue Mobility Assessment Muscle guarding in lumbar paraspinal and gluteal musculature - left more affected than right Joint Mobility Assessment Joint Mobility Assessment No pain with lumbar and thoracic PA's. Excursion consistent with history of L5- S1 fusion. All other joints WNL PT-OP-G Mobility & Gait Start: 05/18/21 09:25 Freq: Status: Active Protocol: Document 05/18/21 11:15 AW (Rec: 05/18/21 11:55 AW [email or web address]) OP Gait Assessment Gait Gait Assistance Required: Independent Distance (Feet) 100 Assistive Devices Assistive Device None Gait Deviations General Gait Pattern Antalgic Factors Limiting Gait Function Factors Limiting Gait Function Decreased Strength,Pain Comments Gait Comments Decreased left LE weightbearing. PT-OP-H Neuro Start: 05/18/21 09:25 Freq: Status: Active Protocol: Document 05/18/21 11:15 AW (Rec: 05/18/21 11:55 AW [email or web address]) Sensation Evaluation Gross Sensation Gross Sensation WNL Deep Tendon Reflex & Clonus Assessment Deep Tendon Reflex Bilateral Achilles Deep Tendon Reflex 1+ Diminished Bilateral Patellar Deep Tendon Reflex 2+ Normal PT-OP-J Posture/Palpation/Skin Start: 05/18/21 09:25 Freq: Status: Active Protocol: Document 05/18/21 11:15 AW (Rec: 05/18/21 11:55 AW [email or web address]) Posture Evaluation Position Standing Head/C-Spine Posture Neutral Position T-Spine Posture Flattened L-Spine Posture Increased Lordosis,Flexible Scoliosis on (L) Shoulder Posture (L) Elevated Scapula Posture (L) Elevated Weight Distribution Weight Shifted Right,Decreased Wt.Bear on (L) Knee Posture (L) Genu Recurvatum,(R) Genu Recurvatum Skin Assessment Incisional Assessment Incision Appearance/Comments Well-healed scars bilateral lumbar region PT-OP-K Range of Motion Start: 05/18/21 09:25 Freq: Status: Active Protocol: Document 05/18/21 11:15 AW (Rec: 05/18/21 12:11 AW [email or web address]) Lumbar Spine Range of Motion Lumbar Spine Active Degrees Testing Position Standing Flexion 90 Extension 10 Rotation Left 20 Rotation Right 30 ROM Limitations Soft Tissue Tightness,Pain Comments Lateral flexion: fingertips to knee joint right side; 2 above knee joint left side. Lumbar spine is relatively flat without segmental motion in all planes. Hip Goniometric Range of Motion Hip Bilateral Passive Hip ROM WFL Yes Testing Position Supine Comments WFL but painful with rotation left hip. Hip ROM Limitations Hip ROM Limitations Pain PT-OP-L Special Tests Start: 05/18/21 09:25 Freq: Status: Active Protocol: Document 05/18/21 11:15 AW (Rec: 05/18/21 12:11 AW [email or web address]) Special Tests Hip Special Tests Stinchfield Resisted Hip Flexion Test Results positive left; mildly positive right Comments poor core stabilization with resistance in hip flexion Scour Test Test Results negative bilaterally BREE Test Results negative bilaterally Neural Special Tests- Lower Body Sciatic Nerve Tension Test Results negative bilaterally PT-OP-M Strength Start: 05/18/21 09:25 Freq: Status: Active Protocol: Document 05/18/21 11:15 AW (Rec: 05/18/21 12:11 AW [email or web address]) Trunk Strength Trunk Manual Muscle Testing Testing Position Supine Core Stabilization Fair trunk stabilization vs resistance at extremities Hip Strength Hip Manual Muscle Testing Left Adduction 4 Good Internal Rotation 4 Good Comments Grossly 5/5 except as noted Right Flexion (L2) 4+ Good+ Internal Rotation 4+ Good+ Comments Grossly 5/5 except as noted Knee Strength Knee Manual Muscle Testing Right Flexion (S2) 5 Normal Extension (L3) 5 Normal Left Flexion (S2) 5 Normal Extension (L3) 5 Normal Ankle/Foot Strength Ankle and Foot Manual Muscle Testing Right Comments Grossly 5/5 Left Comments Grossly 5/5 Toe Strength Toe Manual Muscle Testing Great Toe Extension 5 Normal PT-OP-Q Treatments Start: 05/18/21 09:25 Freq: Status: Active Protocol: Document 05/25/21 12:19 SP (Rec: 05/25/21 15:57 SP [id number]) Therapeutic Exercises Supine Exercises clamshell Supine Exercise Name cued slow eccentric control Resistance Tb #3 Reps/Minutes 2x10 Comments cued x1, core fac awareness w/ breath- good feedback fig 4 stretch Supine Exercise Name 1 leg over opp and pull both toward chest Side bilateral Reps/Minutes 30 x3 Comments good core leg ext Supine Exercise Name added to HEP Side bilateral Reps/Minutes 2x10 Comments good core facilitation. Prone Exercises push up off knees Prone Exercise Name checked personal HEP Reps/Minutes 2x5 Comments cued neutral CS, PPT, improved form bird dog Prone Exercise Name LE glide on table then lift slowly, follow then by UE Side bilateral Reps/Minutes x5 Comments cued core facil, slow pacing control child's pose Reps/Minutes 30 x3 Comments good feedback LB stretch cat camel Reps/Minutes x10 Comments good form and feedback stretch plank off knees Prone Exercise Name checked personal HEP Reps/Minutes 3 x20 sec hold Comments cued neutral CS, PPT- improved form. Other Exercises self STMs Other Exercise Name B paraspinals, glut med, pirformis- stand at wall, HS seated LAQ MWM Side bilateral Equipment Used racquetball at wall, rolling stick to ITB/ HS Comments good feedback response better using tennis ball Self-Care/Home Management Treatment Education Patient Education Body Mechanics,Home Exercise Program,Joint Protection Other Education Education on core facilitation , PPT awareness throughout ther ex, Self STMs to decrease tightness/ increase mobility while incorporating breath. Discussed K taping and or SI belt, pt states used one before surgery and wants to avoid using to get stronger so doesn't rely on, prefers to be more active to stabilize. Reassess as needed. PT-OP-T Assessment and Plan Start: 05/18/21 09:25 Freq: Status: Active Protocol: Document 05/25/21 12:19 SP (Rec: 05/25/21 15:57 SP [id number]) Physical Therapy Assessment Goals Four Impairment impaired strength, stability LLE Skilled Nursing Goal (LTG) Pt will perform single leg squat from 20 height table bilaterally to demonstrate improved strength and stability. LTG Duration 07/13/21 Three Impairment quality of life/daily function Guard Chief Goal (LTG) Pt will score 10 or less on modified Oswestry to demonstrate improved daily function LTG Duration 07/13/21 Two Impairment Lacks HEP Guard Chief Goal (LTG) Pt will be independent with HEP for to manage and prevent LBP symptoms. LTG Duration 07/13/21 One Impairment Limited sitting tolerance Short Term Goal (STG) Pt will be educated in postural awareness and compensatory measures to improve sitting tolerance to 10 minutes at a time without increase in baseline pain. STG Duration 06/15/21 Skilled Nursing Goal (LTG) Pt will sit 30 minutes without pain greater than 1/10 LTG Duration 07/13/21 Assessment Summary Assessment Pt had good demonstration of self STMs using preferred tennis ball for more specific releases, sitting for HS, glut and paraspinals at wall sustained pressure/rolling/ MWM opposite LE lift from floor. Pt responded well to stretching and initiated core facilitation in supine, quadruped with no adverse affect to SI region. Physical Therapy Plan Frequency and Duration Frequency of Treatment 1-2x/week Duration of Treatment 2 months Plan of Care Start Date 05/18/21 Plan of Care End Date 07/19/21 Therapeutic Interventions Therapeutic Interventions Aquatic Therapy,Home Exercise Program,Joint Mobilizations, Manual Therapy,Neuromuscular Re-education,Patient/Caregiver Education,Self-Care/Home Management,Soft Tissue Mobilization,Taping, Therapeutic Activities, Therapeutic Exercises Modalities Cold Pack/Ice Massage,Hot Packs Other Therapeutic Interventions SI belt Next Visit Focus/Plan Next Note Type Treatment Note Next Visit Plan Next tx: review HEP: core LE ext, bird dog, clamshell. PT POC: Revisit if beneficial of taping for SI stability and assess for appropriateness of SI belt. Continue core strengthening in supported position and progress as able. Future tx: standing shld ext/ pull downs, resisted side stepping.
--- NOTE | 2021-05-29 14:30 | PT.OTN ---
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 She got stiff and could barely lift her leg that night. She has improved since that time but continues to complain of low back and left hip pain. She denies pain in her legs other than tightness along her anterior and lateral thighs (left worse than right ). Sitting too long increases her pain. Walking and standing are ok. Pt can tolerate laying on her stomach. Sometimes when she rolls over in bed, she feels her left hip is stuck until it clicks. She has been using pain medication but can not remember the name. She reports it has been making her lightheaded. Her normal BP is ~110/80. Prior Treatments and Tests 09/17/19 Surgery: L5-S1 Postero-lateral & posterior interbody fusion, interbody cage placement, decompressive laminectomy w/bilateral facetecomies, posterior non- segmental instrumentation. PT 10/2019-12/2019 - met all goals 05/03/21 x-ray: Transverse pedicle screws and vertical fixation rods appear stable at L4-S1 with an interbody disc cage spacer at the L5-S1 level . Anterolisthesis previously present has been corrected. No source of new back pain is found. Future Testing and Treatments Planned None identified Treatment Goals Patient/Caregiver Goals Pt would like to be able to move in bed without pain, hike [employer] with increased confidence, and bend over to tend her garden without pain. Prior Functional Status Baseline Function- ADL's Independent Baseline Function- Mobility Independent Baseline Function- Other Hiking, gardening without pain Current Functional Impairments (Reported) Functional Limitations- ADL's Pt reports some difficulty with LB dressing tasks but slowly improving since she began pain medication. Functional Limitations- Mobility/Gait Antalgic with decreased left weightbearing. Functional Limitations- Recreation/ Difficulty bending over for Hobbies gardening tasks. Personal Factors Other Personal Factors That May Effect (+) good prior experience with Therapy/Recovery PT (+) supportive family (-) chronicity PT-OP-C Subjective Start: 05/18/21 09:25 Freq: Status: Active Protocol: Document 05/29/21 13:46 SP (Rec: 05/29/21 14:37 SP [id number]) OP-PT Subjective Patient Comments Patient Comments Pt stated her upper back is really tight, little soreness. Pt stated did well after last appt and compliant with HEP and doing well with them, good soreness. PT-OP-D Balance Start: 05/18/21 09:25 Freq: Status: Active Protocol: Document 05/18/21 11:15 AW (Rec: 05/18/21 11:40 AW [email or web address]) OP-PT Balance Assessment Sitting Balance Static Sitting Balance Ability Normal Dynamic Sitting Balance Ability Normal Standing Balance Static Standing Balance Ability Normal Dynamic Standing Balance Ability Good Standing Balance Comments Decreased LLE weightbearing Balance Tests Single Limb Standing Single Limb- Right >15 seconds with good stability Single Limb- Left 12-15 seconds with poor stability Other Other Balance Tests Performed SL squat: R from 23 seat height; L from 20 seat height with instability Walker Fall Scale Copyright Permission PT-OP-F Manual Assessment Start: 05/18/21 09:25 Freq: Status: Active Protocol: Document 05/18/21 11:15 AW (Rec: 05/18/21 11:47 AW [email or web address]) Manual Assessments Soft Tissue Assessment Soft Tissue Mobility Assessment Muscle guarding in lumbar paraspinal and gluteal musculature - left more affected than right Joint Mobility Assessment Joint Mobility Assessment No pain with lumbar and thoracic PA's. Excursion consistent with history of L5- S1 fusion. All other joints WNL PT-OP-G Mobility & Gait Start: 05/18/21 09:25 Freq: Status: Active Protocol: Document 05/18/21 11:15 AW (Rec: 05/18/21 11:55 AW [email or web address]) OP Gait Assessment Gait Gait Assistance Required: Independent Distance (Feet) 100 Assistive Devices Assistive Device None Gait Deviations General Gait Pattern Antalgic Factors Limiting Gait Function Factors Limiting Gait Function Decreased Strength,Pain Comments Gait Comments Decreased left LE weightbearing. PT-OP-H Neuro Start: 05/18/21 09:25 Freq: Status: Active Protocol: Document 05/18/21 11:15 AW (Rec: 05/18/21 11:55 AW [email or web address]) Sensation Evaluation Gross Sensation Gross Sensation WNL Deep Tendon Reflex & Clonus Assessment Deep Tendon Reflex Bilateral Achilles Deep Tendon Reflex 1+ Diminished Bilateral Patellar Deep Tendon Reflex 2+ Normal PT-OP-J Posture/Palpation/Skin Start: 05/18/21 09:25 Freq: Status: Active Protocol: Document 05/18/21 11:15 AW (Rec: 05/18/21 11:55 AW [email or web address]) Posture Evaluation Position Standing Head/C-Spine Posture Neutral Position T-Spine Posture Flattened L-Spine Posture Increased Lordosis,Flexible Scoliosis on (L) Shoulder Posture (L) Elevated Scapula Posture (L) Elevated Weight Distribution Weight Shifted Right,Decreased Wt.Bear on (L) Knee Posture (L) Genu Recurvatum,(R) Genu Recurvatum Skin Assessment Incisional Assessment Incision Appearance/Comments Well-healed scars bilateral lumbar region PT-OP-K Range of Motion Start: 05/18/21 09:25 Freq: Status: Active Protocol: Document 05/18/21 11:15 AW (Rec: 05/18/21 12:11 AW [email or web address]) Lumbar Spine Range of Motion Lumbar Spine Active Degrees Testing Position Standing Flexion 90 Extension 10 Rotation Left 20 Rotation Right 30 ROM Limitations Soft Tissue Tightness,Pain Comments Lateral flexion: fingertips to knee joint right side; 2 above knee joint left side. Lumbar spine is relatively flat without segmental motion in all planes. Hip Goniometric Range of Motion Hip Bilateral Passive Hip ROM WFL Yes Testing Position Supine Comments WFL but painful with rotation left hip. Hip ROM Limitations Hip ROM Limitations Pain PT-OP-L Special Tests Start: 05/18/21 09:25 Freq: Status: Active Protocol: Document 05/18/21 11:15 AW (Rec: 05/18/21 12:11 AW [email or web address]) Special Tests Hip Special Tests [place] Resisted Hip Flexion Test Results positive left; mildly positive right Comments poor core stabilization with resistance in hip flexion Scour Test Test Results negative bilaterally BREE Test Results negative bilaterally Neural Special Tests- Lower Body Sciatic Nerve Tension Test Results negative bilaterally PT-OP-M Strength Start: 05/18/21 09:25 Freq: Status: Active Protocol: Document 05/18/21 11:15 AW (Rec: 05/18/21 12:11 AW [email or web address]) Trunk Strength Trunk Manual Muscle Testing Testing Position Supine Core Stabilization Fair trunk stabilization vs resistance at extremities Hip Strength Hip Manual Muscle Testing Left Adduction 4 Good Internal Rotation 4 Good Comments Grossly 5/5 except as noted Right Flexion (L2) 4+ Good+ Internal Rotation 4+ Good+ Comments Grossly 5/5 except as noted Knee Strength Knee Manual Muscle Testing Right Flexion (S2) 5 Normal Extension (L3) 5 Normal Left Flexion (S2) 5 Normal Extension (L3) 5 Normal Ankle/Foot Strength Ankle and Foot Manual Muscle Testing Right Comments Grossly 5/5 Left Comments Grossly 5/5 Toe Strength Toe Manual Muscle Testing Great Toe Extension 5 Normal PT-OP-Q Treatments Start: 05/18/21 09:25 Freq: Status: Active Protocol: Document 05/29/21 13:46 SP (Rec: 05/29/21 14:37 SP [id number]) Gym Equipment Cable Column (Body Solid) Rows Details core fac, scap stab, tall posture Resistance 4 Reps/Time 2x10 Lat Pull Down Details core fac, scap stab Resistance 4 Reps/Time 2x10 Therapeutic Exercises Supine Exercises clamshell Supine Exercise Name cued slow eccentric control Resistance Tb #3 Reps/Minutes 2x10 Comments cued x1, core fac awareness w/ breath- good form fig 4 stretch Supine Exercise Name 1 leg over opp and pull both toward chest Side bilateral Reps/Minutes 30 x3 Comments good core leg ext Supine Exercise Name added to HEP Side bilateral Reps/Minutes 2x10 Comments good core facilitation. Prone Exercises bird dog Prone Exercise Name LE glide on table then lift slowly, follow then by UE Side bilateral Reps/Minutes x5 Comments cued core facil, slow pacing control child's pose Reps/Minutes 30 x3 and MWM Comments good feedback LB stretch plank off knees Prone Exercise Name off feet Reps/Minutes 2 x30 sec, 40 sec Comments cued neutral CS, PPT good form . Other Exercises self STMs Other Exercise Name inter scapular, mid thoracic, LS - paraspinals Side bilateral Equipment Used theracane Comments good feedback response better using tennis ball PT-OP-T Assessment and Plan Start: 05/18/21 09:25 Freq: Status: Active Protocol: Document 05/29/21 13:46 SP (Rec: 05/29/21 14:37 SP [id number]) Physical Therapy Assessment Goals Four Impairment impaired strength, stability LLE [employer] Goal (LTG) Pt will perform single leg squat from 20 height table bilaterally to demonstrate improved strength and stability. LTG Duration 07/13/21 Three Impairment quality of life/daily function Group Home Goal (LTG) Pt will score 10 or less on modified Oswestry to demonstrate improved daily function LTG Duration 07/13/21 Two Impairment Lacks HEP Group Home Goal (LTG) Pt will be independent with HEP for to manage and prevent LBP symptoms. LTG Duration 07/13/21 One Impairment Limited sitting tolerance Short Term Goal (STG) Pt will be educated in postural awareness and compensatory measures to improve sitting tolerance to 10 minutes at a time without increase in baseline pain. STG Duration 06/15/21 Program Project Manager Goal (LTG) Pt will sit 30 minutes without pain greater than 1/10 LTG Duration 07/13/21 Assessment Summary Assessment Pt improved in HEP review, decreased cuing for core fac and PPT with ability to increase plank off knees and hold up to 40 sec. Initiated cable lat pull down and rows, has at home to use, cued for scap stab depression with improved self corrections. good core workout, sweating little bit, that's good. Physical Therapy Plan Frequency and Duration Frequency of Treatment 1-2x/week Duration of Treatment 2 months Plan of Care Start Date 05/18/21 Plan of Care End Date 07/19/21 Therapeutic Interventions Therapeutic Interventions Aquatic Therapy,Home Exercise Program,Joint Mobilizations, Manual Therapy,Neuromuscular Re-education,Patient/Caregiver Education,Self-Care/Home Management,Soft Tissue Mobilization,Taping, Therapeutic Activities, Therapeutic Exercises Modalities Cold Pack/Ice Massage,Hot Packs Other Therapeutic Interventions SI belt Next Visit Focus/Plan Next Note Type Treatment Note Next Visit Plan Next tx: review HEP: core LE ext, bird dog, planks off feet ,cables ex, initiate diagonal chops TB, shld ext/pull downs, resisted side stepping. next tx. PT POC: Revisit if beneficial of taping for SI stability and assess for appropriateness of SI belt. Continue core strengthening in supported position and progress as able.
--- NOTE | 2021-05-31 12:47 | PT.OTN ---
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 She got stiff and could barely lift her leg that night. She has improved since that time but continues to complain of low back and left hip pain. She denies pain in her legs other than tightness along her anterior and lateral thighs (left worse than right ). Sitting too long increases her pain. Walking and standing are ok. Pt can tolerate laying on her stomach. Sometimes when she rolls over in bed, she feels her left hip is stuck until it clicks. She has been using pain medication but can not remember the name. She reports it has been making her lightheaded. Her normal BP is ~110/80. Prior Treatments and Tests 09/17/19 Surgery: L5-S1 Postero-lateral & posterior interbody fusion, interbody cage placement, decompressive laminectomy w/bilateral facetecomies, posterior non- segmental instrumentation. PT 10/2019-12/2019 - met all goals 05/03/21 x-ray: Transverse pedicle screws and vertical fixation rods appear stable at L4-S1 with an interbody disc cage spacer at the L5-S1 level . Anterolisthesis previously present has been corrected. No source of new back pain is found. Future Testing and Treatments Planned None identified Treatment Goals Patient/Caregiver Goals Pt would like to be able to move in bed without pain, hike [employer] with increased confidence, and bend over to tend her garden without pain. Prior Functional Status Baseline Function- ADL's Independent Baseline Function- Mobility Independent Baseline Function- Other Hiking, gardening without pain Current Functional Impairments (Reported) Functional Limitations- ADL's Pt reports some difficulty with LB dressing tasks but slowly improving since she began pain medication. Functional Limitations- Mobility/Gait Antalgic with decreased left weightbearing. Functional Limitations- Recreation/ Difficulty bending over for Hobbies gardening tasks. Personal Factors Other Personal Factors That May Effect (+) good prior experience with Therapy/Recovery PT (+) supportive family (-) chronicity PT-OP-C Subjective Start: 05/18/21 09:25 Freq: Status: Active Protocol: Document 05/31/21 12:02 MA (Rec: 05/31/21 12:47 MA [id number]) OP-PT Subjective Patient Comments Patient Comments Pt states she has had a headache all morning today. PT-OP-D Balance Start: 05/18/21 09:25 Freq: Status: Active Protocol: Document 05/18/21 11:15 AW (Rec: 05/18/21 11:40 AW [email or web address]) OP-PT Balance Assessment Sitting Balance Static Sitting Balance Ability Normal Dynamic Sitting Balance Ability Normal Standing Balance Static Standing Balance Ability Normal Dynamic Standing Balance Ability Good Standing Balance Comments Decreased LLE weightbearing Balance Tests Single Limb Standing Single Limb- Right >15 seconds with good stability Single Limb- Left 12-15 seconds with poor stability Other Other Balance Tests Performed SL squat: R from 23 seat height; L from 20 seat height with instability Walker Fall Scale Copyright Permission PT-OP-F Manual Assessment Start: 05/18/21 09:25 Freq: Status: Active Protocol: Document 05/18/21 11:15 AW (Rec: 05/18/21 11:47 AW [email or web address]) Manual Assessments Soft Tissue Assessment Soft Tissue Mobility Assessment Muscle guarding in lumbar paraspinal and gluteal musculature - left more affected than right Joint Mobility Assessment Joint Mobility Assessment No pain with lumbar and thoracic PA's. Excursion consistent with history of L5- S1 fusion. All other joints WNL PT-OP-G Mobility & Gait Start: 05/18/21 09:25 Freq: Status: Active Protocol: Document 05/18/21 11:15 AW (Rec: 05/18/21 11:55 AW [email or web address]) OP Gait Assessment Gait Gait Assistance Required: Independent Distance (Feet) 100 Assistive Devices Assistive Device None Gait Deviations General Gait Pattern Antalgic Factors Limiting Gait Function Factors Limiting Gait Function Decreased Strength,Pain Comments Gait Comments Decreased left LE weightbearing. PT-OP-H Neuro Start: 05/18/21 09:25 Freq: Status: Active Protocol: Document 05/18/21 11:15 AW (Rec: 05/18/21 11:55 AW [email or web address]) Sensation Evaluation Gross Sensation Gross Sensation WNL Deep Tendon Reflex & Clonus Assessment Deep Tendon Reflex Bilateral Achilles Deep Tendon Reflex 1+ Diminished Bilateral Patellar Deep Tendon Reflex 2+ Normal PT-OP-J Posture/Palpation/Skin Start: 05/18/21 09:25 Freq: Status: Active Protocol: Document 05/18/21 11:15 AW (Rec: 05/18/21 11:55 AW [email or web address]) Posture Evaluation Position Standing Head/C-Spine Posture Neutral Position T-Spine Posture Flattened L-Spine Posture Increased Lordosis,Flexible Scoliosis on (L) Shoulder Posture (L) Elevated Scapula Posture (L) Elevated Weight Distribution Weight Shifted Right,Decreased Wt.Bear on (L) Knee Posture (L) Genu Recurvatum,(R) Genu Recurvatum Skin Assessment Incisional Assessment Incision Appearance/Comments Well-healed scars bilateral lumbar region PT-OP-K Range of Motion Start: 05/18/21 09:25 Freq: Status: Active Protocol: Document 05/18/21 11:15 AW (Rec: 05/18/21 12:11 AW [email or web address]) Lumbar Spine Range of Motion Lumbar Spine Active Degrees Testing Position Standing Flexion 90 Extension 10 Rotation Left 20 Rotation Right 30 ROM Limitations Soft Tissue Tightness,Pain Comments Lateral flexion: fingertips to knee joint right side; 2 above knee joint left side. Lumbar spine is relatively flat without segmental motion in all planes. Hip Goniometric Range of Motion Hip Bilateral Passive Hip ROM WFL Yes Testing Position Supine Comments WFL but painful with rotation left hip. Hip ROM Limitations Hip ROM Limitations Pain PT-OP-L Special Tests Start: 05/18/21 09:25 Freq: Status: Active Protocol: Document 05/18/21 11:15 AW (Rec: 05/18/21 12:11 AW [email or web address]) Special Tests Hip Special Tests [facility] Resisted Hip Flexion Test Results positive left; mildly positive right Comments poor core stabilization with resistance in hip flexion Scour Test Test Results negative bilaterally BREE Test Results negative bilaterally Neural Special Tests- Lower Body Sciatic Nerve Tension Test Results negative bilaterally PT-OP-M Strength Start: 05/18/21 09:25 Freq: Status: Active Protocol: Document 05/18/21 11:15 AW (Rec: 05/18/21 12:11 AW [email or web address]) Trunk Strength Trunk Manual Muscle Testing Testing Position Supine Core Stabilization Fair trunk stabilization vs resistance at extremities Hip Strength Hip Manual Muscle Testing Left Adduction 4 Good Internal Rotation 4 Good Comments Grossly 5/5 except as noted Right Flexion (L2) 4+ Good+ Internal Rotation 4+ Good+ Comments Grossly 5/5 except as noted Knee Strength Knee Manual Muscle Testing Right Flexion (S2) 5 Normal Extension (L3) 5 Normal Left Flexion (S2) 5 Normal Extension (L3) 5 Normal Ankle/Foot Strength Ankle and Foot Manual Muscle Testing Right Comments Grossly 5/5 Left Comments Grossly 5/5 Toe Strength Toe Manual Muscle Testing Great Toe Extension 5 Normal PT-OP-Q Treatments Start: 05/18/21 09:25 Freq: Status: Active Protocol: Document 05/31/21 12:02 MA (Rec: 05/31/21 12:47 MA [id number]) Gym Equipment Cable Column (Body Solid) Rows Details core fac, scap stab, tall posture Resistance 4 Reps/Time 2x10 Lat Pull Down Details core fac, scap stab Resistance 4 Reps/Time 2x10 Therapeutic Exercises Supine Exercises clamshell Supine Exercise Name cued slow eccentric control Resistance Tb #3 Reps/Minutes 2x10 Comments cued x1, core fac awareness w/ breath- good form fig 4 stretch Supine Exercise Name 1 leg over opp and pull both toward chest Side bilateral Reps/Minutes 30 x3 Comments good Prone Exercises bird dog Prone Exercise Name LE glide on table then lift slowly, follow then by UE Side bilateral Reps/Minutes x5 Comments cued core facil, slow pacing control child's pose Reps/Minutes 30 x3 and MWM Comments good feedback LB stretch cat camel Reps/Minutes x10 Comments good form and feedback stretch plank off knees Prone Exercise Name off feet Reps/Minutes 2 x30 sec Comments cued neutral CS, PPT good form . Manual Therapy Treatment Soft Tissue Mobilization Hip ER's Body Location adrianne Hip ER's at [facility] Piriformis Mobilization Type Strumming,Sustained Pressure Intensity/Depth Moderate Body Position Prone Comments Intensity/Depth: Moderate to Deep. PT-OP-T Assessment and Plan Start: 05/18/21 09:25 Freq: Status: Active Protocol: Document 05/31/21 12:02 MA (Rec: 05/31/21 12:47 MA [id number]) Physical Therapy Assessment Goals Four Impairment impaired strength, stability LLE [employer] Goal (LTG) Pt will perform single leg squat from 20 height table bilaterally to demonstrate improved strength and stability. LTG Duration 07/13/21 Three Impairment quality of life/daily function [employer] Goal (LTG) Pt will score 10 or less on modified Oswestry to demonstrate improved daily function LTG Duration 07/13/21 Two Impairment Lacks HEP Half-Way Goal (LTG) Pt will be independent with HEP for to manage and prevent LBP symptoms. LTG Duration 07/13/21 One Impairment Limited sitting tolerance Short Term Goal (STG) Pt will be educated in postural awareness and compensatory measures to improve sitting tolerance to 10 minutes at a time without increase in baseline pain. STG Duration 06/15/21 [employer] Goal (LTG) Pt will sit 30 minutes without pain greater than 1/10 LTG Duration 07/13/21 Assessment Summary Assessment Pt showed good form during quadruped LE ext exercise today needing only minor cues for core facilitation. Continued with lat pull down and row exercise for home with pt needing minor cues for form to squeeze scapulae. She had LE cramping today throughout supine exercise and arrived with a headache. Discussed drinking more water after PT to help cramps and [place] . Physical Therapy Plan Frequency and Duration Frequency of Treatment 1-2x/week Duration of Treatment 2 months Plan of Care Start Date 05/18/21 Plan of Care End Date 07/19/21 Therapeutic Interventions Therapeutic Interventions Aquatic Therapy,Home Exercise Program,Joint Mobilizations, Manual Therapy,Neuromuscular Re-education,Patient/Caregiver Education,Self-Care/Home Management,Soft Tissue Mobilization,Taping, Therapeutic Activities, Therapeutic Exercises Modalities Cold Pack/Ice Massage,Hot Packs Other Therapeutic Interventions SI belt Next Visit Focus/Plan Next Note Type Treatment Note Next Visit Plan Next tx: review HEP: core LE ext, bird dog, planks off feet ,cables ex, initiate diagonal chops TB, shld ext/pull downs, resisted side stepping. next tx. PT POC: Revisit if beneficial of taping for SI stability and assess for appropriateness of SI belt. Continue core strengthening in supported position and progress as able.
--- NOTE | 2021-06-06 11:28 | PT.OTN ---
Current Diagnoses Radiculopathy, lumbar region (06/06/21) Low back pain (06/06/21) Abnormal posture (06/06/21) Physical Therapy Treatment Note PT-OP-A Visit Information Start: 05/18/21 09:25 Freq: Status: Active Protocol: Document 06/06/21 10:32 SP (Rec: 06/06/21 11:34 SP [id number]) Out-Patient Physical Therapy Visit Information Visit Information Visit Type Treatment Note Visit Start Time 10:32 Visit Stop Time 11:28 Total Visit Minutes 56 Visit Number 5 Number of INTERNET MARKETING STRATEGIST Visits 4 Evaluation Information Evaluation Date 05/18/21 Precautions Precautions low BP PT-OP-B Current Condition Start: 05/18/21 09:25 Freq: Status: Active Protocol: Document 05/18/21 11:15 AW (Rec: 05/18/21 09:34 AW [email or web address]) Current Condition History of Current Condition Onset Date a few weeks Current Complaints low back pain, left worse than right History of Current Condition Two weeks ago, Himanshu used a vibration plate three times in one day. She got stiff and could barely lift her leg that night. She has improved since that time but continues to complain of low back and left hip pain. She denies pain in her legs other than tightness along her anterior and lateral thighs (left worse than right ). Sitting too long increases her pain. Walking and standing are ok. Pt can tolerate laying on her stomach. Sometimes when she rolls over in bed, she feels her left hip is stuck until it clicks. She has been using pain medication but can not remember the name. She reports it has been making her lightheaded. Her normal BP is ~110/80. Prior Treatments and Tests 09/17/19 Surgery: L5-S1 Postero-lateral & posterior interbody fusion, interbody cage placement, decompressive laminectomy w/bilateral facetecomies, posterior non- segmental instrumentation. PT 10/2019-12/2019 - met all goals 05/03/21 x-ray: Transverse pedicle screws and vertical fixation rods appear stable at L4-S1 with an interbody disc cage spacer at the L5-S1 level . Anterolisthesis previously present has been corrected. No source of new back pain is found. Future Testing and Treatments Planned None identified Treatment Goals Patient/Caregiver Goals Pt would like to be able to move in bed without pain, hike [place] [employer] with increased confidence, and bend over to tend her garden without pain. Prior Functional Status Baseline Function- ADL's Independent Baseline Function- Mobility Independent Baseline Function- Other Hiking, gardening without pain Current Functional Impairments (Reported) Functional Limitations- ADL's Pt reports some difficulty with LB dressing tasks but slowly improving since she began pain medication. Functional Limitations- Mobility/Gait Antalgic with decreased left weightbearing. Functional Limitations- Recreation/ Difficulty bending over for Hobbies gardening tasks. Personal Factors Other Personal Factors That May Effect (+) good prior experience with Therapy/Recovery PT (+) supportive family (-) chronicity PT-OP-C Subjective Start: 05/18/21 09:25 Freq: Status: Active Protocol: Document 06/06/21 10:32 SP (Rec: 06/06/21 11:34 SP [id number]) OP-PT Subjective Patient Comments Patient Comments Pt stated took the trash out recently and got a twinge in R LB but ok now. Patient Reported Progress Improving PT-OP-D Balance Start: 05/18/21 09:25 Freq: Status: Active Protocol: Document 05/18/21 11:15 AW (Rec: 05/18/21 11:40 AW [email or web address]) OP-PT Balance Assessment Sitting Balance Static Sitting Balance Ability Normal Dynamic Sitting Balance Ability Normal Standing Balance Static Standing Balance Ability Normal Dynamic Standing Balance Ability Good Standing Balance Comments Decreased LLE weightbearing Balance Tests Single Limb Standing Single Limb- Right >15 seconds with good stability Single Limb- Left 12-15 seconds with poor stability Other Other Balance Tests Performed SL squat: R from 23 seat height; L from 20 seat height with instability Walker Fall Scale Copyright Permission PT-OP-F Manual Assessment Start: 05/18/21 09:25 Freq: Status: Active Protocol: Document 05/18/21 11:15 AW (Rec: 05/18/21 11:47 AW [email or web address]) Manual Assessments Soft Tissue Assessment Soft Tissue Mobility Assessment Muscle guarding in lumbar paraspinal and gluteal musculature - left more affected than right Joint Mobility Assessment Joint Mobility Assessment No pain with lumbar and thoracic PA's. Excursion consistent with history of L5- S1 fusion. All other joints WNL PT-OP-G Mobility & Gait Start: 05/18/21 09:25 Freq: Status: Active Protocol: Document 05/18/21 11:15 AW (Rec: 05/18/21 11:55 AW [email or web address]) OP Gait Assessment Gait Gait Assistance Required: Independent Distance (Feet) 100 Assistive Devices Assistive Device None Gait Deviations General Gait Pattern Antalgic Factors Limiting Gait Function Factors Limiting Gait Function Decreased Strength,Pain Comments Gait Comments Decreased left LE weightbearing. PT-OP-H Neuro Start: 05/18/21 09:25 Freq: Status: Active Protocol: Document 05/18/21 11:15 AW (Rec: 05/18/21 11:55 AW [email or web address]) Sensation Evaluation Gross Sensation Gross Sensation WNL Deep Tendon Reflex & Clonus Assessment Deep Tendon Reflex Bilateral Achilles Deep Tendon Reflex 1+ Diminished Bilateral Patellar Deep Tendon Reflex 2+ Normal PT-OP-J Posture/Palpation/Skin Start: 05/18/21 09:25 Freq: Status: Active Protocol: Document 05/18/21 11:15 AW (Rec: 05/18/21 11:55 AW [email or web address]) Posture Evaluation Position Standing Head/C-Spine Posture Neutral Position T-Spine Posture Flattened L-Spine Posture Increased Lordosis,Flexible Scoliosis on (L) Shoulder Posture (L) Elevated Scapula Posture (L) Elevated Weight Distribution Weight Shifted Right,Decreased Wt.Bear on (L) Knee Posture (L) Genu Recurvatum,(R) Genu Recurvatum Skin Assessment Incisional Assessment Incision Appearance/Comments Well-healed scars bilateral lumbar region PT-OP-K Range of Motion Start: 05/18/21 09:25 Freq: Status: Active Protocol: Document 05/18/21 11:15 AW (Rec: 05/18/21 12:11 AW [email or web address]) Lumbar Spine Range of Motion Lumbar Spine Active Degrees Testing Position Standing Flexion 90 Extension 10 Rotation Left 20 Rotation Right 30 ROM Limitations Soft Tissue Tightness,Pain Comments Lateral flexion: fingertips to knee joint right side; 2 above knee joint left side. Lumbar spine is relatively flat without segmental motion in all planes. Hip Goniometric Range of Motion Hip Bilateral Passive Hip ROM WFL Yes Testing Position Supine Comments WFL but painful with rotation left hip. Hip ROM Limitations Hip ROM Limitations Pain PT-OP-L Special Tests Start: 05/18/21 09:25 Freq: Status: Active Protocol: Document 05/18/21 11:15 AW (Rec: 05/18/21 12:11 AW [email or web address]) Special Tests Hip Special Tests [facility] Resisted Hip Flexion Test Results positive left; mildly positive right Comments poor core stabilization with resistance in hip flexion Scour Test Test Results negative bilaterally BREE Test Results negative bilaterally Neural Special Tests- Lower Body Sciatic Nerve Tension Test Results negative bilaterally PT-OP-M Strength Start: 05/18/21 09:25 Freq: Status: Active Protocol: Document 05/18/21 11:15 AW (Rec: 05/18/21 12:11 AW [email or web address]) Trunk Strength Trunk Manual Muscle Testing Testing Position Supine Core Stabilization Fair trunk stabilization vs resistance at extremities Hip Strength Hip Manual Muscle Testing Left Adduction 4 Good Internal Rotation 4 Good Comments Grossly 5/5 except as noted Right Flexion (L2) 4+ Good+ Internal Rotation 4+ Good+ Comments Grossly 5/5 except as noted Knee Strength Knee Manual Muscle Testing Right Flexion (S2) 5 Normal Extension (L3) 5 Normal Left Flexion (S2) 5 Normal Extension (L3) 5 Normal Ankle/Foot Strength Ankle and Foot Manual Muscle Testing Right Comments Grossly 5/5 Left Comments Grossly 5/5 Toe Strength Toe Manual Muscle Testing Great Toe Extension 5 Normal PT-OP-Q Treatments Start: 05/18/21 09:25 Freq: Status: Active Protocol: Document 06/06/21 10:32 SP (Rec: 06/06/21 11:34 SP [id number]) Gym Equipment Cable Column (Body Solid) Resisted side stepping Details lateral, forward Resistance 2 Reps/Time 5 steps x5 Bilateral Rows Details core fac, scap stab, tall posture- seated on floor- reclined approx 30 deg Resistance 2 Reps/Time 2x20- good core fac and alignment Lat Pull Down Details core fac, scap stab- good form seated Resistance 4 Reps/Time 2x20 feels good resistance work Shuttle Recovery unilateral squat Details next tx bilateral squat Details next tx Therapeutic Exercises Prone Exercises bird dog Prone Exercise Name LE & UE lift Side bilateral Reps/Minutes x8 Comments cued core facil, slow pacing control child's pose Reps/Minutes 30 x3 and MWM Comments good feedback LB stretch plank off knees Prone Exercise Name off feet Reps/Minutes 60 sec, 38 sec Comments cued neutral CS, PPT good form . Standing Exercises SL squat Standing Exercise Name 20 height chair Side bilateral Reps/Minutes 5 reps Comments good form resisted side stepping Standing Exercise Name hold TB at abdomen with locked hands front navel Side bilateral Resistance Tb #2 vs body solid #2 was better (has similar cable system at home) Reps/Minutes 3 steps x5 rep B Comments cued tall posture, scap stab, neutral pelvis, soft knee- good core fac Other Exercises self stretching Other Exercise Name pigon up, down, justice cross- does home on own Side bilateral Comments good form, pain free now compared to pre PT PT-OP-T Assessment and Plan Start: 05/18/21 09:25 Freq: Status: Active Protocol: Document 06/06/21 10:32 SP (Rec: 06/06/21 11:34 SP [id number]) Physical Therapy Assessment Goals Four Impairment impaired strength, stability LLE Registered Public Health Nurse Goal (LTG) Pt will perform single leg squat from 20 height table bilaterally to demonstrate improved strength and stability. 06/06/21: Goal Met: pt able to perform 5 reps each LE LTG Duration 07/13/21 (Goal Met 06/06/21) Three Impairment quality of life/daily function Detention Goal (LTG) Pt will score 10 or less on modified Oswestry to demonstrate improved daily function LTG Duration 07/13/21 Two Impairment Lacks HEP Detention Goal (LTG) Pt will be independent with HEP for to manage and prevent LBP symptoms. LTG Duration 07/13/21 One Impairment Limited sitting tolerance Short Term Goal (STG) Pt will be educated in postural awareness and compensatory measures to improve sitting tolerance to 10 minutes at a time without increase in baseline pain. 06/06/21: Goal Met: pt doesn't not have pain, does get stiffness but goes away with stretching/ core strengthening . STG Duration 06/15/21 (Goal Met 06/06/21) Registered Public Health Nurse Goal (LTG) Pt will sit 30 minutes without pain greater than 1/10 06/06/21: Goal met: able to sit without pain, uses pillow at back if needed for proper alignment. LTG Duration 07/13/21 (Goal met 06/06/21) Progress Towards Goals Progress Towards Goals Progressing Toward Goals Progress Comments Met goal #4, # 1 Assessment Summary Assessment Pt hyperverbal, becoming confident in HEP and balance of core and self flexibility, requires cuing at times for focused on activities currently doing in PT. She is making great rivas. Not really having pain anymore, reports mostly stiffness and doesn't want to turn into pain so applies HEP and self stretching. Tx today focused on core strengthening using cable system has at home for proper form/ alignment for back safety with good feedback responses and self corrections for core facilitation. Pt able to hold plank off feet for 60 x2 today with no adverse LB affects. Physical Therapy Plan Frequency and Duration Frequency of Treatment 1-2x/week Duration of Treatment 2 months Plan of Care Start Date 05/18/21 Plan of Care End Date 07/19/21 Therapeutic Interventions Therapeutic Interventions Aquatic Therapy,Home Exercise Program,Joint Mobilizations, Manual Therapy,Neuromuscular Re-education,Patient/Caregiver Education,Self-Care/Home Management,Soft Tissue Mobilization,Taping, Therapeutic Activities, Therapeutic Exercises Modalities Cold Pack/Ice Massage,Hot Packs Other Therapeutic Interventions SI belt Next Visit Focus/Plan Next Note Type Treatment Note Next Visit Plan PT will see pt next visit, recheck progress making and decide if need to finish appts scheduled. INTERNET MARKETING STRATEGIST did not discuss this with pt but feel pt may be back to baseline. Next tx: review HEP: bird dog, planks off feet,cables ex, initiate diagonal chops TB, shld ext/pull downs. PT POC: Continue core strengthening in supported position and progress as able.
--- NOTE | 2021-06-07 16:03 | PT.OTN ---
Current Diagnoses Radiculopathy, lumbar region (06/07/21) Low back pain (06/07/21) Abnormal posture (06/07/21) Physical Therapy Treatment Note PT-OP-A Visit Information Start: 05/18/21 09:25 Freq: Status: Active Protocol: Document 06/07/21 15:15 AW (Rec: 06/07/21 15:15 AW [id number]) Out-Patient Physical Therapy Visit Information Visit Information Visit Start Time 14:30 Visit Stop Time 15:15 Total Visit Minutes 45 Visit Number 6 Number of FIELD SERVICE COORDINATOR Visits 0 Evaluation Information Evaluation Date 05/18/21 Precautions Precautions low BP PT-OP-B Current Condition Start: 05/18/21 09:25 Freq: Status: Active Protocol: Document 05/18/21 11:15 AW (Rec: 05/18/21 09:34 AW [email or web address]) Current Condition History of Current Condition Onset Date a few weeks Current Complaints low back pain, left worse than right History of Current Condition Two weeks ago, Himanshu used a vibration plate three times in one day. She got stiff and could barely lift her leg that night. She has improved since that time but continues to complain of low back and left hip pain. She denies pain in her legs other than tightness along her anterior and lateral thighs (left worse than right ). Sitting too long increases her pain. Walking and standing are ok. Pt can tolerate laying on her stomach. Sometimes when she rolls over in bed, she feels her left hip is stuck until it clicks. She has been using pain medication but can not remember the name. She reports it has been making her lightheaded. Her normal BP is ~110/80. Prior Treatments and Tests 09/17/19 Surgery: L5-S1 Postero-lateral & posterior interbody fusion, interbody cage placement, decompressive laminectomy w/bilateral facetecomies, posterior non- segmental instrumentation. PT 10/2019-12/2019 - met all goals 05/03/21 x-ray: Transverse pedicle screws and vertical fixation rods appear stable at L4-S1 with an interbody disc cage spacer at the L5-S1 level . Anterolisthesis previously present has been corrected. No source of new back pain is found. Future Testing and Treatments Planned None identified Treatment Goals Patient/Caregiver Goals Pt would like to be able to move in bed without pain, hike [place] trails with increased confidence, and bend over to tend her garden without pain. Prior Functional Status Baseline Function- ADL's Independent Baseline Function- Mobility Independent Baseline Function- Other Hiking, gardening without pain Current Functional Impairments (Reported) Functional Limitations- ADL's Pt reports some difficulty with LB dressing tasks but slowly improving since she began pain medication. Functional Limitations- Mobility/Gait Antalgic with decreased left weightbearing. Functional Limitations- Recreation/ Difficulty bending over for Hobbies gardening tasks. Personal Factors Other Personal Factors That May Effect (+) good prior experience with Therapy/Recovery PT (+) supportive family (-) chronicity PT-OP-C Subjective Start: 05/18/21 09:25 Freq: Status: Active Protocol: Document 06/06/21 10:32 SP (Rec: 06/06/21 11:34 SP [id number]) OP-PT Subjective Patient Comments Patient Comments Pt stated took the trash out recently and got a twinge in R LB but ok now. Patient Reported Progress Improving PT-OP-D Balance Start: 05/18/21 09:25 Freq: Status: Active Protocol: Document 05/18/21 11:15 AW (Rec: 05/18/21 11:40 AW [email or web address]) OP-PT Balance Assessment Sitting Balance Static Sitting Balance Ability Normal Dynamic Sitting Balance Ability Normal Standing Balance Static Standing Balance Ability Normal Dynamic Standing Balance Ability Good Standing Balance Comments Decreased LLE weightbearing Balance Tests Single Limb Standing Single Limb- Right >15 seconds with good stability Single Limb- Left 12-15 seconds with poor stability Other Other Balance Tests Performed SL squat: R from 23 seat height; L from 20 seat height with instability Walker Fall Scale Copyright Permission PT-OP-F Manual Assessment Start: 05/18/21 09:25 Freq: Status: Active Protocol: Document 05/18/21 11:15 AW (Rec: 05/18/21 11:47 AW [email or web address]) Manual Assessments Soft Tissue Assessment Soft Tissue Mobility Assessment Muscle guarding in lumbar paraspinal and gluteal musculature - left more affected than right Joint Mobility Assessment Joint Mobility Assessment No pain with lumbar and thoracic PA's. Excursion consistent with history of L5- S1 fusion. All other joints WNL PT-OP-G Mobility & Gait Start: 05/18/21 09:25 Freq: Status: Active Protocol: Document 05/18/21 11:15 AW (Rec: 05/18/21 11:55 AW [email or web address]) OP Gait Assessment Gait Gait Assistance Required: Independent Distance (Feet) 100 Assistive Devices Assistive Device None Gait Deviations General Gait Pattern Antalgic Factors Limiting Gait Function Factors Limiting Gait Function Decreased Strength,Pain Comments Gait Comments Decreased left LE weightbearing. PT-OP-H Neuro Start: 05/18/21 09:25 Freq: Status: Active Protocol: Document 05/18/21 11:15 AW (Rec: 05/18/21 11:55 AW [email or web address]) Sensation Evaluation Gross Sensation Gross Sensation WNL Deep Tendon Reflex & Clonus Assessment Deep Tendon Reflex Bilateral Achilles Deep Tendon Reflex 1+ Diminished Bilateral Patellar Deep Tendon Reflex 2+ Normal PT-OP-J Posture/Palpation/Skin Start: 05/18/21 09:25 Freq: Status: Active Protocol: Document 05/18/21 11:15 AW (Rec: 05/18/21 11:55 AW [email or web address]) Posture Evaluation Position Standing Head/C-Spine Posture Neutral Position T-Spine Posture Flattened L-Spine Posture Increased Lordosis,Flexible Scoliosis on (L) Shoulder Posture (L) Elevated Scapula Posture (L) Elevated Weight Distribution Weight Shifted Right,Decreased Wt.Bear on (L) Knee Posture (L) Genu Recurvatum,(R) Genu Recurvatum Skin Assessment Incisional Assessment Incision Appearance/Comments Well-healed scars bilateral lumbar region PT-OP-K Range of Motion Start: 05/18/21 09:25 Freq: Status: Active Protocol: Document 05/18/21 11:15 AW (Rec: 05/18/21 12:11 AW [email or web address]) Lumbar Spine Range of Motion Lumbar Spine Active Degrees Testing Position Standing Flexion 90 Extension 10 Rotation Left 20 Rotation Right 30 ROM Limitations Soft Tissue Tightness,Pain Comments Lateral flexion: fingertips to knee joint right side; 2 above knee joint left side. Lumbar spine is relatively flat without segmental motion in all planes. Hip Goniometric Range of Motion Hip Bilateral Passive Hip ROM WFL Yes Testing Position Supine Comments WFL but painful with rotation left hip. Hip ROM Limitations Hip ROM Limitations Pain PT-OP-L Special Tests Start: 05/18/21 09:25 Freq: Status: Active Protocol: Document 05/18/21 11:15 AW (Rec: 05/18/21 12:11 AW [email or web address]) Special Tests Hip Special Tests [facility] Resisted Hip Flexion Test Results positive left; mildly positive right Comments poor core stabilization with resistance in hip flexion Scour Test Test Results negative bilaterally BREE Test Results negative bilaterally Neural Special Tests- Lower Body Sciatic Nerve Tension Test Results negative bilaterally PT-OP-M Strength Start: 05/18/21 09:25 Freq: Status: Active Protocol: Document 05/18/21 11:15 AW (Rec: 05/18/21 12:11 AW [email or web address]) Trunk Strength Trunk Manual Muscle Testing Testing Position Supine Core Stabilization Fair trunk stabilization vs resistance at extremities Hip Strength Hip Manual Muscle Testing Left Adduction 4 Good Internal Rotation 4 Good Comments Grossly 5/5 except as noted Right Flexion (L2) 4+ Good+ Internal Rotation 4+ Good+ Comments Grossly 5/5 except as noted Knee Strength Knee Manual Muscle Testing Right Flexion (S2) 5 Normal Extension (L3) 5 Normal Left Flexion (S2) 5 Normal Extension (L3) 5 Normal Ankle/Foot Strength Ankle and Foot Manual Muscle Testing Right Comments Grossly 5/5 Left Comments Grossly 5/5 Toe Strength Toe Manual Muscle Testing Great Toe Extension 5 Normal PT-OP-Q Treatments Start: 05/18/21 09:25 Freq: Status: Active Protocol: Document 06/07/21 15:15 AW (Rec: 06/07/21 15:15 AW [id number]) Gym Equipment Cable Column (Body Solid) GH extension Details GH extension Resistance 2 Reps/Time x15 paloff press Details fwd, w/ shoulder flexion, SLS Resistance 2 Reps/Time x10 each condition Rows Details core fac, scap stab, tall posture- seated on floor- reclined approx 30 deg Resistance 2 Reps/Time 2x20- good core fac and alignment Lat Pull Down Details core fac, scap stab- good form seated Resistance 5 Reps/Time 2x20 feels good resistance work PT-OP-T Assessment and Plan Start: 05/18/21 09:25 Freq: Status: Active Protocol: Document 06/07/21 15:15 AW (Rec: 06/07/21 16:03 AW [email or web address]) Physical Therapy Assessment Goals Four Impairment impaired strength, stability LLE [facility] Goal (LTG) Pt will perform single leg squat from 20 height table bilaterally to demonstrate improved strength and stability. 06/06/21: Goal Met: pt able to perform 5 reps each LE LTG Duration 07/13/21 (Goal Met 06/06/21) Three Impairment quality of life/daily function Pipe Threader Goal (LTG) Pt will score 10 or less on modified Oswestry to demonstrate improved daily function LTG Duration 07/13/21 Two Impairment Lacks HEP [facility] Goal (LTG) Pt will be independent with HEP for to manage and prevent LBP symptoms. LTG Duration 07/13/21 One Impairment Limited sitting tolerance Short Term Goal (STG) Pt will be educated in postural awareness and compensatory measures to improve sitting tolerance to 10 minutes at a time without increase in baseline pain. 06/06/21: Goal Met: pt doesn't not have pain, does get stiffness but goes away with stretching/ core strengthening . STG Duration 06/15/21 (Goal Met 06/06/21) [facility] Goal (LTG) Pt will sit 30 minutes without pain greater than 1/10 06/06/21: Goal met: able to sit without pain, uses pillow at back if needed for proper alignment. LTG Duration 07/13/21 (Goal met 06/06/21) Progress Towards Goals Progress Towards Goals Progressing Toward Goals Assessment Summary Assessment Pt continues to improve, noting only minor low back pain after heavy lifting. Pt had PT Saturday, worked out Saturday, and returned to PT Saturday. Advised pt to defer strength training three days in a row, instead substituting another form of exercise in between. Pt agrees she is feeling much improved. She plans to keep appointment one week from today and then likely ready for discharge. Physical Therapy Plan Frequency and Duration Frequency of Treatment 1-2x/week Duration of Treatment 2 months Plan of Care Start Date 05/18/21 Plan of Care End Date 07/19/21 Therapeutic Interventions Therapeutic Interventions Aquatic Therapy,Home Exercise Program,Joint Mobilizations, Manual Therapy,Neuromuscular Re-education,Patient/Caregiver Education,Self-Care/Home Management,Soft Tissue Mobilization,Taping, Therapeutic Activities, Therapeutic Exercises Modalities Cold Pack/Ice Massage,Hot Packs Other Therapeutic Interventions SI belt Next Visit Focus/Plan Next Note Type Discharge Summary
--- NOTE | 2021-06-22 15:13 | PT.OTN ---
Current Diagnoses Radiculopathy, lumbar region (06/22/21) Low back pain (06/22/21) Abnormal posture (06/22/21) Physical Therapy Treatment Note PT-OP-A Visit Information Start: 05/18/21 09:25 Freq: Status: Active Protocol: Document 06/22/21 15:03 AW (Rec: 06/22/21 15:05 AW [email or web address]) Out-Patient Physical Therapy Visit Information Visit Information Visit Type Treatment Note Visit Start Time 14:30 Visit Stop Time 15:03 Total Visit Minutes 33 Visit Number 7 Number of HIGH LIFT MULE OPERATOR Visits 0 Evaluation Information Evaluation Date 05/18/21 Precautions Precautions low BP PT-OP-B Current Condition Start: 05/18/21 09:25 Freq: Status: Active Protocol: Document 05/18/21 11:15 AW (Rec: 05/18/21 09:34 AW [email or web address]) Current Condition History of Current Condition Onset Date a few weeks Current Complaints low back pain, left worse than right History of Current Condition Two weeks ago, Himanshu used a vibration plate three times in one day. She got stiff and could barely lift her leg that night. She has improved since that time but continues to complain of low back and left hip pain. She denies pain in her legs other than tightness along her anterior and lateral thighs (left worse than right ). Sitting too long increases her pain. Walking and standing are ok. Pt can tolerate laying on her stomach. Sometimes when she rolls over in bed, she feels her left hip is stuck until it clicks. She has been using pain medication but can not remember the name. She reports it has been making her lightheaded. Her normal BP is ~110/80. Prior Treatments and Tests 09/17/19 Surgery: L5-S1 Postero-lateral & posterior interbody fusion, interbody cage placement, decompressive laminectomy w/bilateral facetecomies, posterior non- segmental instrumentation. PT 10/2019-12/2019 - met all goals 05/03/21 x-ray: Transverse pedicle screws and vertical fixation rods appear stable at L4-S1 with an interbody disc cage spacer at the L5-S1 level . Anterolisthesis previously present has been corrected. No source of new back pain is found. Future Testing and Treatments Planned None identified Treatment Goals Patient/Caregiver Goals Pt would like to be able to move in bed without pain, hike [place] with increased confidence, and bend over to tend her garden without pain. Prior Functional Status Baseline Function- ADL's Independent Baseline Function- Mobility Independent Baseline Function- Other Hiking, gardening without pain Current Functional Impairments (Reported) Functional Limitations- ADL's Pt reports some difficulty with LB dressing tasks but slowly improving since she began pain medication. Functional Limitations- Mobility/Gait Antalgic with decreased left weightbearing. Functional Limitations- Recreation/ Difficulty bending over for Hobbies gardening tasks. Personal Factors Other Personal Factors That May Effect (+) good prior experience with Therapy/Recovery PT (+) supportive family (-) chronicity PT-OP-C Subjective Start: 05/18/21 09:25 Freq: Status: Active Protocol: Document 06/22/21 15:03 AW (Rec: 06/22/21 15:05 AW [id number]) OP-PT Subjective Patient Comments Patient Comments Pt reports pain is well managed at this point. Patient Reported Progress Improving PT-OP-D Balance Start: 05/18/21 09:25 Freq: Status: Active Protocol: Document 05/18/21 11:15 AW (Rec: 05/18/21 11:40 AW [email or web address]) OP-PT Balance Assessment Sitting Balance Static Sitting Balance Ability Normal Dynamic Sitting Balance Ability Normal Standing Balance Static Standing Balance Ability Normal Dynamic Standing Balance Ability Good Standing Balance Comments Decreased LLE weightbearing Balance Tests Single Limb Standing Single Limb- Right >15 seconds with good stability Single Limb- Left 12-15 seconds with poor stability Other Other Balance Tests Performed SL squat: R from 23 seat height; L from 20 seat height with instability Walker Fall Scale Copyright Permission PT-OP-F Manual Assessment Start: 05/18/21 09:25 Freq: Status: Active Protocol: Document 05/18/21 11:15 AW (Rec: 05/18/21 11:47 AW [email or web address]) Manual Assessments Soft Tissue Assessment Soft Tissue Mobility Assessment Muscle guarding in lumbar paraspinal and gluteal musculature - left more affected than right Joint Mobility Assessment Joint Mobility Assessment No pain with lumbar and thoracic PA's. Excursion consistent with history of L5- S1 fusion. All other joints WNL PT-OP-G Mobility & Gait Start: 05/18/21 09:25 Freq: Status: Active Protocol: Document 05/18/21 11:15 AW (Rec: 05/18/21 11:55 AW [email or web address]) OP Gait Assessment Gait Gait Assistance Required: Independent Distance (Feet) 100 Assistive Devices Assistive Device None Gait Deviations General Gait Pattern Antalgic Factors Limiting Gait Function Factors Limiting Gait Function Decreased Strength,Pain Comments Gait Comments Decreased left LE weightbearing. PT-OP-H Neuro Start: 05/18/21 09:25 Freq: Status: Active Protocol: Document 05/18/21 11:15 AW (Rec: 05/18/21 11:55 AW [email or web address]) Sensation Evaluation Gross Sensation Gross Sensation WNL Deep Tendon Reflex & Clonus Assessment Deep Tendon Reflex Bilateral Achilles Deep Tendon Reflex 1+ Diminished Bilateral Patellar Deep Tendon Reflex 2+ Normal PT-OP-J Posture/Palpation/Skin Start: 05/18/21 09:25 Freq: Status: Active Protocol: Document 05/18/21 11:15 AW (Rec: 05/18/21 11:55 AW [email or web address]) Posture Evaluation Position Standing Head/C-Spine Posture Neutral Position T-Spine Posture Flattened L-Spine Posture Increased Lordosis,Flexible Scoliosis on (L) Shoulder Posture (L) Elevated Scapula Posture (L) Elevated Weight Distribution Weight Shifted Right,Decreased Wt.Bear on (L) Knee Posture (L) Genu Recurvatum,(R) Genu Recurvatum Skin Assessment Incisional Assessment Incision Appearance/Comments Well-healed scars bilateral lumbar region PT-OP-K Range of Motion Start: 05/18/21 09:25 Freq: Status: Active Protocol: Document 05/18/21 11:15 AW (Rec: 05/18/21 12:11 AW [email or web address]) Lumbar Spine Range of Motion Lumbar Spine Active Degrees Testing Position Standing Flexion 90 Extension 10 Rotation Left 20 Rotation Right 30 ROM Limitations Soft Tissue Tightness,Pain Comments Lateral flexion: fingertips to knee joint right side; 2 above knee joint left side. Lumbar spine is relatively flat without segmental motion in all planes. Hip Goniometric Range of Motion Hip Bilateral Passive Hip ROM WFL Yes Testing Position Supine Comments WFL but painful with rotation left hip. Hip ROM Limitations Hip ROM Limitations Pain PT-OP-L Special Tests Start: 05/18/21 09:25 Freq: Status: Active Protocol: Document 05/18/21 11:15 AW (Rec: 05/18/21 12:11 AW [email or web address]) Special Tests Hip Special Tests Stinchfield Resisted Hip Flexion Test Results positive left; mildly positive right Comments poor core stabilization with resistance in hip flexion Scour Test Test Results negative bilaterally BREE Test Results negative bilaterally Neural Special Tests- Lower Body Sciatic Nerve Tension Test Results negative bilaterally PT-OP-M Strength Start: 05/18/21 09:25 Freq: Status: Active Protocol: Document 05/18/21 11:15 AW (Rec: 05/18/21 12:11 AW [email or web address]) Trunk Strength Trunk Manual Muscle Testing Testing Position Supine Core Stabilization Fair trunk stabilization vs resistance at extremities Hip Strength Hip Manual Muscle Testing Left Adduction 4 Good Internal Rotation 4 Good Comments Grossly 5/5 except as noted Right Flexion (L2) 4+ Good+ Internal Rotation 4+ Good+ Comments Grossly 5/5 except as noted Knee Strength Knee Manual Muscle Testing Right Flexion (S2) 5 Normal Extension (L3) 5 Normal Left Flexion (S2) 5 Normal Extension (L3) 5 Normal Ankle/Foot Strength Ankle and Foot Manual Muscle Testing Right Comments Grossly 5/5 Left Comments Grossly 5/5 Toe Strength Toe Manual Muscle Testing Great Toe Extension 5 Normal PT-OP-Q Treatments Start: 05/18/21 09:25 Freq: Status: Active Protocol: Document 06/22/21 15:03 AW (Rec: 06/22/21 15:05 AW [id number]) Gym Equipment Cable Column (Body Solid) paloff press Details fwd, w/ shoulder flexion, SLS Resistance 2 Reps/Time x10 each condition Resisted side stepping Details lateral, forward Resistance 2 Reps/Time 5 steps x5 Bilateral Rows Details core fac, scap stab, tall posture- seated on floor- reclined approx 30 deg Resistance 2 Reps/Time 2x20- good core fac and alignment Lat Pull Down Details pull down and scap depression Resistance 5 Reps/Time 2x20 feels good resistance work Therapeutic Exercises Prone Exercises bird dog Prone Exercise Name LE & UE lift Side bilateral Reps/Minutes x8 Comments cued core facil, slow pacing control child's pose Reps/Minutes 30 x3 and MWM Comments good feedback LB stretch cat camel Prone Exercise Name cat camel and tail wag/SB Reps/Minutes x10 Comments good form and feedback stretch Standing Exercises resisted trunk rotation Standing Exercise Name resisted trunk rotation Side bilateral Resistance level 2 Equipment Used TB Reps/Minutes x15 Comments cued eccentric control SL squat Standing Exercise Name 18 height chair Side bilateral Reps/Minutes 5 reps x 2 Comments good stability overall resisted side stepping Standing Exercise Name hold TB at abdomen with locked hands front navel Side bilateral Resistance Tb #2 vs body solid #2 was better (has similar cable system at home) Reps/Minutes 3 steps x5 rep B Comments cued tall posture, scap stab, neutral pelvis, soft knee- good core fac Other Exercises self stretching Other Exercise Name pigon up, down, justice cross- does home on own Side bilateral Comments good form, pain free now compared to pre PT PT-OP-T Assessment and Plan Start: 05/18/21 09:25 Freq: Status: Active Protocol: Document 06/22/21 15:03 AW (Rec: 06/22/21 15:13 AW [email or web address]) Physical Therapy Assessment Goals Four Impairment impaired strength, stability LLE Market Research Analyst Goal (LTG) Pt will perform single leg squat from 20 height table bilaterally to demonstrate improved strength and stability. 06/22/21: Goal Met: pt able to perform 5 reps each LE from 18 chair LTG Duration 07/13/21 (Goal Met 06/06/21) Three Impairment quality of life/daily function Senior Living Goal (LTG) Pt will score 10 or less on modified Oswestry to demonstrate improved daily function 06/22/21 NOT ASSESSED LTG Duration 07/13/21 Two Impairment Lacks HEP Senior Living Goal (LTG) Pt will be independent with HEP for to manage and prevent LBP symptoms. 06/22/21 MET LTG Duration 07/13/21 One Impairment Limited sitting tolerance Short Term Goal (STG) Pt will be educated in postural awareness and compensatory measures to improve sitting tolerance to 10 minutes at a time without increase in baseline pain. 06/06/21: Goal Met: pt doesn't not have pain, does get stiffness but goes away with stretching/ core strengthening . STG Duration 06/15/21 (Goal Met 06/06/21) Senior Living Goal (LTG) Pt will sit 30 minutes without pain greater than 1/10 06/06/21: Goal met: able to sit without pain, uses pillow at back if needed for proper alignment. 06/22/21 Pt states able to sit one hour without pain. LTG Duration 07/13/21 (Goal met 06/06/21) Assessment Summary Assessment Pt reports she has been pain free with all sorts of activities over the past few weeks. Reviewed HEP for independent performance. Pt is appropriate for discharge. Physical Therapy Plan Discharge Physical Therapy Discharge Reasons Goals Met Discharge Comments Pt has met all PT goals and has been pain free with a variety of activities for two weeks. Pt will discharge at this time and understands she will need a new referral to return.
== END 2021-06-26 09:46 | disposition home or self-care (01) ==
LOC: PHYS 14:30
PROVIDERS: Family Provider Family Medicine; PCP Family Medicine; Referring Provider Family Medicine; Visit Provider Family Medicine
DX: M54.5 Low back pain (principal); M54.16 Radiculopathy, lumbar region; R29.3 Abnormal posture
CPT/HCPCS: 97110; 97140; 97161; 97535

== ENCOUNTER → 2022-08-24 09:14 | Outpatient (CLI) | payer BC, SELFPAY ==
[2019-09-17 14:35] VITALS: BMI 23.2
--- NOTE | 2022-08-24 | DI.MG.S_ITS ---
BILATERAL DIGITAL SCREENING MAMMOGRAM 3D/2D WITH CAD: 08/24/2022 CLINICAL: Routine screening. Comparison is made to exams dated: 12/23/2018 mammogram, 05/06/2017 mammogram, and 05/04/2016 mammogram - [facility]. Both breasts are heterogeneously dense, which may obscure small masses (category c / 51-75% glandular tissue). Current study was also evaluated with a Computer Aided Detection (CAD) system. There are benign calcifications in both breasts. No significant masses, calcifications, or other findings are seen in either breast. There has been no significant interval change. IMPRESSION: BENIGN There is no mammographic evidence of malignancy. A 1 year screening mammogram is recommended. Based on the Tyrer Cuzick model (a risk assessment model) the patient's lifetime risk is 9.7% and her 10 year risk is 2.8%. According to the ACR, ACS, and NCCN guidelines, an annual breast MRI exam along with mammogram is recommended if the patient's lifetime risk is 20% or greater. This exam was interpreted at Station ID: [id number]. NOTE: For mammograms, a report in lay terms will be sent to the patient. Approximately 15% of breast malignancies will not be visualized mammographically. In the management of a palpable breast mass, a negative mammogram must not discourage biopsy of a clinically suspicious lesion. Electronically Signed By: Epi live/denise:08/24/2022 12:19:21 letter sent: Normal Exam ACR BI-RADS Category 2: Benign Finding(s) 3342F
== END ==
PROVIDERS: Family Provider Family Medicine; PCP Family Medicine; Referring Provider Family Medicine; Visit Provider Family Medicine
DX: Z12.31 Encounter for screening mammogram for malignant neoplasm of breast (principal)
CPT/HCPCS: 77063; 77067

== ENCOUNTER → 2022-10-15 09:33 | Outpatient (CLI) | payer BC, SELFPAY ==
[2019-09-17 14:35] VITALS: BMI 23.2
[2022-10-15 10:46] LABS: COVID19 -Nasal RAPID Negative (Negative)
== END ==
PROVIDERS: Family Provider Family Medicine; PCP Family Medicine; Visit Provider Surgery
DX: Z01.812 Encounter for preprocedural laboratory examination (principal); Z20.822 Contact with and (suspected) exposure to COVID-19
CPT/HCPCS: 87635; C9803

== ENCOUNTER 2022-10-16 06:45 | Day surgery (SDC) | payer BC, SELFPAY ==
[2019-09-17 14:35] VITALS: BMI 23.2
--- NOTE | 2022-10-16 | PATH_ITS ---
[facility] Accession Number: [id number] No. of containers..01 Tissue . 01 Material submitted: . colon - DESCENDING COLON . 01 Diagnosis: Descending Colon, Biopsy: Hyperplastic polyp. MRV 10/17/2022 1213 Local . 01 Electronically signed: . Marva Guevara MD, Pathologist NPI- [id number] . 01 Gross description: . DESCENDING COLON: Received in formalin is 1 fragment(s) of sandoval, soft tissue measuring 0.3 x 0.3 x 0.2 cm submitted entirely in 1 cassette(s) /RISHABH 10/16/2022 2036 Local . 01 Pathologist provided ICD-10: K63.5 . 01 CPT . 878865 Specimen Comment: A courtesy copy of this report has been sent to [phone] Performed at: 01 [facility] [address] [place] [address], [place], [place] [id number] MD Blado Cardozo MD Phone: [phone]
[2022-10-16 07:09] VITALS: BMI 21.4
[2022-10-16 07:13] VITALS: BP 113/78; PULSE 78; RESP 12; TEMP 36.4; O2SAT 99
[2022-10-16] MEDS: LACTATED RINGERS 1,000 ML 200 ML IV (07:19)
--- NOTE | 2022-10-16 07:39 | PM.HP.1 ---
History of Present Illness History of Present Illness Date Patient Seen: 10/16/22 Time Patient Seen: 07:39 Chief complaint: Colonoscopy Narrative: The patient presents for colorectal screening. They have never had any previous examination for such. No personal or family history of colon cancer. On further history denies any recent gastrointestinal symptoms. No nausea, vomiting, abdominal pain, loss of appetite, unexplained weight loss, change in bowel habits, diarrhea, constipation, melena, hematochezia, or bright red blood per rectum. Patient History Medical History (Updated 09/11/19 @ 09:11 by Cassia Wilder RN) Anxiety Back pain Depression Surgical History (Updated 09/11/19 @ 09:09 by Cassia Wilder RN) History of section Hx of plastic surgery (~2015) Family & Social History Social History: household members children,other Tobacco & Substance use: Smoking Status Never smoker alcohol intake current alcohol intake frequency a few times a week Substance Use Type does not use Meds Home Medications and Allergies Home Medications Medication Instructions Recorded Confirmed Type hydroxyzine pamoate 25 mg capsule 25 mg PO Q6H PRN muscle spasms #40 09/18/19 10/16/22 Rx (Vistaril) caps Allergies Allergy/AdvReac Type Severity Reaction Status Date / Time No Known Drug Allergies Allergy Verified 10/16/22 07:07 Exam Vital Signs (past 8 hours): - 10/16/22 07:13 Temperature 97.5 F L Pulse Rate 78 Respiratory Rate 12 Blood Pressure 113/78 Pulse Oximetry 99 Oxygen Delivery Method Room Air Oxygen Delivery Method Room Air Narrative Exam Narrative: General adult woman alert oriented no acute distress Assessment & Plan Assessment & Plan narrative: The patient requires colorectal screening and colonoscopy is recommended. Technical details were discussed. Risks, benefits, alternatives explained. Risks including but not limited to myocardial infarction, aspiration, bleeding, pain, missed lesion, incomplete examination, need for further radiographic studies, colonic perforation, and need for major abdominal surgery were discussed. All questions were answered to their satisfaction, and they are in agreement with this plan. Time Spent With Patient Critical Care time: I spent a total of [] minutes of critical care time on this patient's care today; this time is exclusive of procedural time.
--- NOTE | 2022-10-16 07:41 | PM.OP.COLON ---
Operative Date/Time/Diagnoses Date of procedure: 10/16/22 Time of procedure: 07:41 Pre-op diagnosis: Screening colonoscopy Post-op diagnosis: same Procedure & Clinicians Study performed: Colonoscopy Same procedure as scheduled: Yes Indications: Screening Surgeon: Ace Morse Procedure Notes Procedure in detail: The history and physical was performed/updated and the patient is ASA class is 3. The procedure was discussed in detail with the patient. Potential risks complications including infection, bleeding, missed diagnosis, perforation, need for surgery, and were explained. Their questions were answered and informed consent was obtained. Patient was brought to the procedure room and placed standard monitoring equipment. The patient's vital signs were monitored continuously throughout the entire procedure. Prior to starting time-out was performed. The patient was placed in the left lateral recumbent position. Procedural sedation was administered by anesthesia. Examination began with a thorough inspection of the perianal area there was no evidence of fissures, fistulae, external hemorrhoids or cutaneous malignancy. The colonoscopy scope was then placed into the anal canal and was advanced to the cecum, which was identified by the ileocecal valve, the appendiceal orifice and the confluence of the taenia. The scope was then slowly withdrawn examining colon thoroughly in all directions, irrigating it of any residual stool. FINDINGS 1. Descending colon 5 mm polyp removed with biopsy forceps 2. Sigmoid mild diverticulosis The patient tolerated the procedure well. They will be discharged once criteria are met. The prep was of good/excellent quality. The withdrawl time was 6 minutes. Specimen(s): other (Descending colon polyp) Complications: none Impression: Colonic polyp Post-procedure Recommendations: High fiber diet Plan for aftercare: Follow-up dependent on biopsy pathology Disposition: same day surgery
[2022-10-16 08:12] VITALS: BP 98/65; PULSE 77; RESP 16; TEMP 36.3; O2SAT 99
[2022-10-16 08:16] VITALS: BP 103/63; PULSE 68; RESP 18; TEMP 36.3; O2SAT 96
[2022-10-16 08:17] VITALS: BP 119/77; PULSE 76; RESP 18; TEMP 36.5; O2SAT 100
[2022-10-16 08:41] VITALS: BP 128/81; PULSE 65; RESP 16; TEMP 36.6; O2SAT 99
== END 2022-10-16 08:49 | disposition home or self-care (01) ==
PROVIDERS: Family Provider Family Medicine; PCP Family Medicine; Referring Provider Surgery; Visit Provider Surgery
PROC: 0DJD8ZZ Inspection of Lower Intestinal Tract, Via Natural or Artificial Opening Endoscopic (ICD-10-PCS; CPT 45378; principal; 2022-10-16 07:45)
DX: Z12.11 Encounter for screening for malignant neoplasm of colon (principal); K57.30 Diverticulosis of large intestine without perforation or abscess without bleeding; K63.5 Polyp of colon
CPT/HCPCS: 45380; J2704

== ENCOUNTER → 2023-06-10 10:15 | Outpatient (CLI) | payer BC, SELFPAY ==
[2019-09-17 14:35] VITALS: BMI 23.2
== END ==
PROVIDERS: Family Provider Family Medicine; PCP Family Medicine; Visit Provider Student in an Organized Health Care Education/Training Program
DX: R30.0 Dysuria (principal)
CPT/HCPCS: 87077; 87086; 87186; 87210

== ENCOUNTER → 2023-08-13 10:53 | Outpatient (CLI) | payer BC, SELFPAY ==
[2019-09-17 14:35] VITALS: BMI 23.2
--- NOTE | 2023-08-13 | DI.RAD.S_ITS ---
PROCEDURE: XR CHEST 2V INDICATIONS: acute cough TECHNIQUE: 2 views of the chest were acquired. COMPARISON: None. FINDINGS: Surgical changes and devices: None. Lungs and pleura: Lungs are clear. No pleural effusions or pneumothorax. Mediastinum: Mediastinal contours are normal. Heart size is normal. Bones and chest wall: No suspicious bony abnormalities. Soft tissues appear unremarkable. IMPRESSION: No acute process. Dictated by: Reddy Zimmerman M.D. on 08/13/2023 at 13:28 Approved by: Reddy Zimmerman M.D. on 08/13/2023 at 13:31
== END ==
PROVIDERS: Family Provider Family Medicine; PCP Family Medicine; Referring Provider Family Medicine; Visit Provider Family Medicine
DX: R05.1 Acute cough (principal)
CPT/HCPCS: 71046

== ENCOUNTER → 2023-10-02 11:52 | Outpatient (CLI) | payer BC, SELFPAY ==
[2019-09-17 14:35] VITALS: BMI 23.2
--- NOTE | 2023-10-02 | DI.MG.S_ITS ---
BILATERAL DIGITAL SCREENING MAMMOGRAM 3D/2D WITH CAD: 10/02/2023 CLINICAL: Routine screening. Comparison is made to exams dated: 08/24/2022 mammogram, 12/23/2018 mammogram, 05/06/2017 mammogram, and 05/04/2016 mammogram - [facility]. Both breasts are heterogeneously dense, which may obscure small masses (category c / 51-75% glandular tissue). Current study was also evaluated with a Computer Aided Detection (CAD) system. There are benign calcifications in both breasts. No significant masses, calcifications, or other findings are seen in either breast. There has been no significant interval change. IMPRESSION: BENIGN There is no mammographic evidence of malignancy. A 1 year screening mammogram is recommended. Based on the Tyrer Cuzick model (a risk assessment model) the patient's lifetime risk is 9.6% and her 10 year risk is 2.9%. According to the ACR, ACS, and NCCN guidelines, an annual breast MRI exam along with mammogram is recommended if the patient's lifetime risk is 20% or greater. This exam was interpreted at Station ID: [id number]. NOTE: For mammograms, a report in lay terms will be sent to the patient. Approximately 15% of breast malignancies will not be visualized mammographically. In the management of a palpable breast mass, a negative mammogram must not discourage biopsy of a clinically suspicious lesion. Electronically Signed By: Romulo sanchez/denise:10/02/2023 16:12:24 letter sent: Normal Exam ACR BI-RADS Category 2: Benign Finding(s) 3342F
== END ==
PROVIDERS: Family Provider Family Medicine; PCP Family Medicine; Referring Provider Family Medicine; Visit Provider Family Medicine
DX: Z12.31 Encounter for screening mammogram for malignant neoplasm of breast (principal)
CPT/HCPCS: 77063; 77067

== ENCOUNTER → 2024-12-24 11:03 | Outpatient (CLI) | payer BC, SELFPAY ==
[2019-09-17 14:35] VITALS: BMI 23.2
--- NOTE | 2024-12-24 11:06 | DI.RAD.S_ITS ---
PROCEDURE: XR CHEST 2V INDICATIONS: COUGH TECHNIQUE: 2 views of the chest were acquired. COMPARISON: [facility], , XR CHEST 2V, 08/13/2023, 11:09. FINDINGS: Heart, mediastinum and pulmonary vascular: Heart is normal in size and configuration. Mediastinum is unremarkable. Pulmonary vascular is normal. Lungs: Clear Pleural spaces: Normal-no effusions or pneumothorax. Bones and soft tissues: Normal IMPRESSION: Normal chest. Dictated by: Nathan Duke M.D. on 12/25/2024 at 11:47 Approved by: Nathan Duke M.D. on 12/25/2024 at 11:47
== END ==
PROVIDERS: Family Provider Family Medicine; PCP Family Medicine; Referring Provider Family Medicine; Visit Provider Family Medicine
DX: J18.9 Pneumonia, unspecified organism (principal)
CPT/HCPCS: 71046

== ENCOUNTER → 2025-07-21 12:11 | Outpatient (CLI) | payer BC, SELFPAY ==
[2019-09-17 14:35] VITALS: BMI 23.2
--- NOTE | 2025-07-21 12:15 | DI.RAD.S_ITS ---
PROCEDURE: XR CLAVICLE RT INDICATIONS: pectoralis muscle strain TECHNIQUE: 2 views of the clavicle were acquired. COMPARISON: None. FINDINGS: Bones: No fractures or dislocations. No suspicious bony lesions. Normal alignment of glenohumeral joint and acromioclavicular joint. Soft tissues: No suspicious soft tissue calcifications. IMPRESSION: No acute bony abnormality. Dictated by: Aaron Samuel M.D. on 07/21/2025 at 12:53 Approved by: Aaron Samuel M.D. on 07/21/2025 at 12:53
== END ==
PROVIDERS: Family Provider Family Medicine; PCP Family Medicine; Referring Provider Family Medicine; Visit Provider Family Medicine
DX: S29.011A Strain of muscle and tendon of front wall of thorax, initial encounter (principal); X50.0XXA Overexertion from strenuous movement or load, initial encounter
CPT/HCPCS: 73000